=== PATIENT | female | born 1955 | race Caucasian/White ===

== ENCOUNTER 2018-06-14 13:25 | Inpatient (IN) | payer MEDICAID ==
[~2018-06-14] VITALS: Ht 167.6 cm; Wt 90.0 kg
[~2018-06-14 13:25] MED LIST: APIX5TAB3 PO; CAT1P TD; CLOP75TA35 PO; FLUT16SP26 BOTHNARES; HYDR4TAB55 PO; LEVA15HF4 INH; LIDO700A5 TP; LISI-604 PO; LORA10TA7 PO; LYR25C PO; LYR75C PO; ONDA8TAB12 PO; PER5325T PO
[2018-06-14] MEDS ORDERED: heparin 10,000 units/1 ML INJ IV ONE (16:10)
[2018-06-14] MEDS ORDERED: mag hydrox/Alum hydrox/simeth 30ml oral suspension PO PRN (16:15)
[2018-06-14] MEDS ORDERED: magnesium hydroxide 30ml (MOM) UD suspension PO PRN (16:15)
[2018-06-14] MEDS ORDERED: ondansetron/PF 4mg/2ml inj IV PRN (16:15)
[2018-06-14] MEDS ORDERED: acetaminophen 325mg tablet PO PRN (16:15)
[2018-06-14] MEDS ORDERED: normal saline 1000ml 1,000 ML IV SCH (16:33)
[2018-06-14] MEDS: morphine 2 MG/ML inj. syringe IV PRN (18:00)
[2018-06-14 18:12] LABS: BASOPHILS # (AUTO) 0.1 X10'3 (0-0.2); BASOPHILS % (AUTO) 0.9 % (0-1); EOSINOPHILS # (AUTO) 0.3 X10'3 (0-0.9); EOSINOPHILS % (AUTO) 2.4 % (0-6); HEMATOCRIT 49.1 % (35.0-45.0); LYMPHOCYTES # (AUTO) 3.4 X10'3 (1.1-4.8); LYMPHOCYTES % (AUTO) 27.3 % (21-51); MEAN CORPUSCULAR HGB CONC 32.6 % (33.0-36.5); MEAN PLATELET VOLUME 8.2 FL (7.4-10.4); MONOCYTES # (AUTO) 0.9 X10'3 (0-0.9); MONOCYTES % (AUTO) 6.9 % (2-12); NEUTROPHILS # (AUTO) 7.8 X10'3 (1.8-7.7); NEUTROPHILS % (AUTO) 62.5 % (42-75); PLATELET COUNT 353 X10'3 (140-440); RED BLOOD COUNT 5.33 X10'6 (4.20-5.60); RED CELL DISTRIBUTION WIDTH 14.5 % (11.5-14.5); WHITE BLOOD COUNT 12.4 X10'3 (4.5-11.0)
[2018-06-14 18:20] LABS: ALANINE AMINOTRANSFERASE 19 U/L (12-78); ALBUMIN 3.3 G/DL (3.4-5.0); ALBUMIN/GLOBULIN RATIO 0.7 (1.1-1.5); ALKALINE PHOSPHATASE 141 IU/L (46-116); ANION GAP 7 (8-16); ASPARTATE AMINO TRANSFERASE 13 U/L (10-37); BILIRUBIN,TOTAL 0.3 MG/DL (0.1-1.0); BLOOD UREA NITROGEN 17 MG/DL (7-18); BUN/CREATININE RATIO 16.2 (6.6-38.0); CHLORIDE 95 MMOL/L (99-107); CREATININE 1.05 MG/DL (0.40-0.90); GLUCOSE 401 MG/DL (70-104); POTASSIUM 4.5 MMOL/L (3.5-5.1); SODIUM 132 MMOL/L (135-145); TOTAL CARBON DIOXIDE 29.6 MMOL/L (24-32); TOTAL PROTEIN 8.3 G/DL (6.4-8.2); eGFR 53 ML/MIN
[2018-06-14] MEDS ORDERED: oxyCODONE/APAP 10/325mg tablet PO PRN (18:20)
[2018-06-14 18:27] LABS: PARTIAL THROMBOPLASTIN TIME 31 SECONDS (22-32)
[2018-06-14] MEDS: heparin 25,000 UNIT/250ml bag 250 ML IV SCH (19:00)
[2018-06-14] MEDS: normal saline 1000ml 1,000 ML IV SCH (19:14)
[2018-06-14 20:00] VITALS: BP 138/74
[2018-06-14] MEDS: HYDROmorphone 2mg tablet PO PRN (20:40)
[2018-06-14] MEDS ORDERED: MESSAGE TO PHARMACY PO ONE (22:20)
[2018-06-14] MEDS ORDERED: glucagon, human recombinant 1mg kit SUBCUT PRN (22:20)
[2018-06-14] MEDS ORDERED: dextrose 50%-water 50ml dispensing syringe IV PRN ×2 (22:20)
[2018-06-14] MEDS ORDERED: dextrose ORAL solution 15 GM/59 ML bottle PO PRN ×2 (22:20)
[2018-06-14 22:21] LABS: HEMOGLOBIN A1C 11.1 % (4.5-6.2)
[2018-06-14] MEDS ORDERED: LYR75C PO (22:26)
[2018-06-14] MEDS ORDERED: LYR25C PO (22:26)
[2018-06-14] MEDS: insulin Lispro (HumaLOG) vial - multi-dose SQ SCH (22:51)
[2018-06-14 23:00] VITALS: BP 143/69
[2018-06-15] MEDS ORDERED: PREG100C PO (01:20)
[2018-06-15] MEDS ORDERED: LISI-604 PO (01:26)
[2018-06-15] MEDS ORDERED: INSU100I31 SQ (01:26)
[2018-06-15] MEDS ORDERED: CLOP75TA15 PO (01:26)
[2018-06-15] MEDS ORDERED: INSU100V11 (01:26)
[2018-06-15] MEDS ORDERED: AMLO5TAB16 PO (01:26)
[2018-06-15] MEDS ORDERED: APIX5TAB3 PO (01:27)
[2018-06-15] MEDS ORDERED: ATOR20TA66 PO (01:27)
[2018-06-15] MEDS: heparin 10,000 units/1 ML INJ IV PRN ×2 (02:02→11:48)
[2018-06-15] MEDS: normal saline 1000ml 1,000 ML IV SCH ×2 (02:12→04:00)
[2018-06-15] MEDS: HYDROmorphone 2mg tablet PO PRN (02:18)
[2018-06-15 02:30] VITALS: BP 141/74
[2018-06-15 06:00] VITALS: BP_SYST 144; BP_SYST 152; BP_DIAS 75; BP_DIAS 90
[2018-06-15 06:59] LABS: BASOPHILS % (AUTO) 0.4 % (0-1); EOSINOPHILS # (AUTO) 0.3 X10'3 (0-0.9); EOSINOPHILS % (AUTO) 2.5 % (0-6); HEMATOCRIT 44.4 % (35.0-45.0); HEMOGLOBIN 14.6 g/dl (12.0-16.0); LYMPHOCYTES # (AUTO) 3.5 X10'3 (1.1-4.8); LYMPHOCYTES % (AUTO) 32.1 % (21-51); MEAN CORPUSCULAR HGB CONC 32.8 % (33.0-36.5); MEAN CORPUSCULAR VOLUME 91.6 FL (78-98); MEAN PLATELET VOLUME 8.6 FL (7.4-10.4); MONOCYTES # (AUTO) 0.8 X10'3 (0-0.9); MONOCYTES % (AUTO) 7.5 % (2-12); NEUTROPHILS # (AUTO) 6.2 X10'3 (1.8-7.7); NEUTROPHILS % (AUTO) 57.5 % (42-75); PLATELET COUNT 323 X10'3 (140-440); RED BLOOD COUNT 4.85 X10'6 (4.20-5.60); RED CELL DISTRIBUTION WIDTH 14.6 % (11.5-14.5); WHITE BLOOD COUNT 10.9 X10'3 (4.5-11.0)
[2018-06-15 07:21] LABS: ALBUMIN 2.6 G/DL (3.4-5.0); ANION GAP 10 (8-16); BLOOD UREA NITROGEN 17 MG/DL (7-18); CALCIUM 8.5 MG/DL (8.5-10.1); CHLORIDE 103 MMOL/L (99-107); CREATININE 0.74 MG/DL (0.40-0.90); GLUCOSE 286 MG/DL (70-104); POTASSIUM 3.9 MMOL/L (3.5-5.1); SODIUM 140 MMOL/L (135-145); TOTAL CARBON DIOXIDE 26.7 MMOL/L (24-32); eGFR 79 ML/MIN
[2018-06-15] MEDS: insulin Lispro (HumaLOG) vial - multi-dose SQ SCH ×2 (07:39→13:03)
[2018-06-15] MEDS ORDERED: clopidogrel 75mg tablet PO SCH (08:00)
[2018-06-15] MEDS: morphine 2 MG/ML inj. syringe IV PRN ×2 (08:32→12:24)
[2018-06-15 11:00] VITALS: BP 144/75
[2018-06-15] MEDS: heparin 25,000 UNIT/250ml bag 250 ML IV SCH (11:52)
[2018-06-15] MEDS ORDERED: LORazepam 0.5 MG tablet PO ONE (13:25)
[2018-06-15] MEDS ORDERED: HYDROMORPHONE HCL PO PRN (13:35)
[2018-06-15] MEDS ORDERED: LIDOcaine 1%/PF 5ML 10 MG/ML VIAL SQ ONE (13:45)
[2018-06-15] MEDS ORDERED: midazolam 2 mg/2 ml injection IV PRN (13:45)
[2018-06-15] MEDS ORDERED: heparin 1,000 UNITS/NS 500ml 500 ML ICATH ONE (13:45)
[2018-06-15] MEDS ORDERED: fentaNYL/PF 50MCG/1 ML 2ML syringe IV PRN (13:45)
[2018-06-15] MEDS ORDERED: LIDOcaine 1%/PF 5ML 10 MG/ML VIAL ONE (13:52)
[2018-06-15] MEDS ORDERED: fentaNYL/PF 50MCG/1 ML 2ML syringe ONE (13:52)
[2018-06-15] MEDS ORDERED: heparin 1,000 UNITS/NS 500ml 0 ML ONE (13:52)
[2018-06-15] MEDS ORDERED: midazolam 2 mg/2 ml injection ONE (13:52)
[2018-06-15] MEDS ORDERED: iohexol 300mg/ml 100ml inj. ONE (13:52)
[2018-06-15] MEDS ORDERED: HYDROmorphone 2mg tablet PO PRN (14:10)
[2018-06-15] MEDS ORDERED: pregabalin 25mg capsule PO ONE (14:10)
[2018-06-15] MEDS ORDERED: lisinopril 5mg tablet PO SCH (20:00)
[2018-06-15] MEDS ORDERED: apixaban 5mg tablet PO SCH (20:00)
[2018-06-15] MEDS ORDERED: non-formulary drug (Levalbuterol Tartrate (Xopenex Hfa) 2 PUFFS) INH SCH (20:00)
[2018-06-15] MEDS ORDERED: insulin glargine (Lantus) pen - multi-dose SQ SCH (21:00)
[2018-06-15] MEDS ORDERED: albuterol 2.5 MG/3 ML nebule NEB SCH (21:00)
[2018-06-15] MEDS ORDERED: pregabalin 25mg capsule PO SCH (21:00)
[2018-06-15] MEDS ORDERED: non-formulary drug (Pregabalin (Lyrica) 1 CAP) PO SCH (21:00)
[2018-06-16] MEDS ORDERED: amLODIPine 5mg tablet PO SCH (08:00)
[2018-06-16] MEDS ORDERED: atorvastatin 20mg tablet PO SCH (08:00)
[2018-06-16] MEDS ORDERED: insulin glargine (Lantus) pen - multi-dose SQ SCH (08:00)
[2018-06-16] MEDS ORDERED: clopidogrel 75mg tablet PO SCH (08:00)
== END 2018-06-15 15:10 | disposition left against medical advice (07) | DRG 206 ==
LOC: ER 13:26 → ED HOLD 16:12 → PCU 3S 19:40 → CMPBEDREQ 19:55
PROVIDERS: ADMIT Family Medicine; ATTEND Family Medicine
DX: T82.898A Other specified complication of vascular prosthetic devices, implants and grafts, initial encounter (principal); N17.9 Acute kidney failure, unspecified; E11.51 Type 2 diabetes mellitus with diabetic peripheral angiopathy without gangrene; I48.0 Paroxysmal atrial fibrillation; G89.4 Chronic pain syndrome; E78.5 Hyperlipidemia, unspecified; F41.9 Anxiety disorder, unspecified; I10 Essential (primary) hypertension; J44.9 Chronic obstructive pulmonary disease, unspecified; E66.9 Obesity, unspecified; Y83.2 Surgical operation with anastomosis, bypass or graft as the cause of abnormal reaction of the patient, or of later complication, without mention of misadventure at the time of the procedure; F12.90 Cannabis use, unspecified, uncomplicated; F17.210 Nicotine dependence, cigarettes, uncomplicated; Z53.21 Procedure and treatment not carried out due to patient leaving prior to being seen by health care provider; Z88.5 Allergy status to narcotic agent; Z88.2 Allergy status to sulfonamides; Z87.01 Personal history of pneumonia (recurrent); Z68.32 Body mass index [BMI] 32.0-32.9, adult
CPT/HCPCS: 36415; 71045; 80048; 80053; 82948; 83036; 85025; 85610; 85730; 93005; 99285; G0378; J1644; J1815; J2001; J2250; J2270; J2405; J3010; J7030; Q9967

== ENCOUNTER 2018-07-07 08:03 | Inpatient (IN) | payer MEDICAID ==
[~2018-07-07] VITALS: Ht 165.1 cm; Wt 86.8 kg
[~2018-07-07 08:03] MED LIST changes: +AMLO5TAB16 PO; +ATOR20TA66 PO; -CAT1P TD; +CLOP75TA15 PO; -CLOP75TA35 PO; -FLUT16SP26 BOTHNARES; +INSU100I31 SQ; +INSU100V11; -LIDO700A5 TP; -LORA10TA7 PO; -LYR25C PO; -LYR75C PO; -ONDA8TAB12 PO; -PER5325T PO; +PREG100C PO
[2018-07-07] MEDS ORDERED: iohexol 350 MG/ML 50ML vial IV ONE (09:30)
[2018-07-07] MEDS ORDERED: iohexol 350MG/ML 100ml bottle IV ONE (09:30)
[2018-07-07 09:50] LABS: CLARITY,URINE CLEAR (Clear); COLOR,URINE YELLOW (Yellow); GLUCOSE, URINE >=1000 mg/dl (Neg); KETONES,URINE NEGATIVE (Neg); LEUKOCYTE ESTERASE ,URINE NEGATIVE (Neg); NITRITES, URINE NEGATIVE (Neg); OCCULT BLOOD,URINE NEGATIVE (Neg); PH,URINE 5.5 (4.8-8.0); PROTEIN,URINE NEGATIVE (Neg); UROBILINOGEN,URINE 0.2 E.U/dL (0.2-1.0)
[2018-07-07 09:57] LABS: BASOPHILS # (AUTO) 0.1 X10'3 (0-0.2); BASOPHILS % (AUTO) 0.5 % (0-1); EOSINOPHILS # (AUTO) 0.2 X10'3 (0-0.9); EOSINOPHILS % (AUTO) 1.9 % (0-6); HEMATOCRIT 49.5 % (35.0-45.0); HEMOGLOBIN 16.9 g/dl (12.0-16.0); LYMPHOCYTES # (AUTO) 1.8 X10'3 (1.1-4.8); MEAN CORPUSCULAR HEMOGLOBIN 30.9 PG (27.0-31.0); MEAN CORPUSCULAR VOLUME 90.9 FL (78-98); MEAN PLATELET VOLUME 9.3 FL (7.4-10.4); MONOCYTES # (AUTO) 0.6 X10'3 (0-0.9); MONOCYTES % (AUTO) 5.9 % (2-12); NEUTROPHILS % (AUTO) 74.7 % (42-75); PLATELET COUNT 251 X10'3 (140-440); RED BLOOD COUNT 5.45 X10'6 (4.20-5.60); RED CELL DISTRIBUTION WIDTH 13.2 % (11.5-14.5); WHITE BLOOD COUNT 10.7 X10'3 (4.5-11.0)
[2018-07-07 09:58] LABS: UA COLLECTION TYPE URINAL
[2018-07-07 10:03] LABS: SQUAMOUS EPITHELIAL CELL,UR MODERATE /LPF (FEW)
[2018-07-07 10:04] LABS: BACTERIA,URINE FEW /HPF (Neg); RBC,URINE 0-2 /HPF (0-2); WBC,URINE 0-4 /HPF (0-4)
[2018-07-07] MEDS ORDERED: HYDROcodone/acetaminophen 10/325mg tab PO PRN (10:05)
[2018-07-07] MEDS ORDERED: magnesium hydroxide 30ml (MOM) UD suspension PO PRN (10:05)
[2018-07-07] MEDS ORDERED: mag hydrox/Alum hydrox/simeth 30ml oral suspension PO PRN (10:05)
[2018-07-07] MEDS ORDERED: morphine 2 MG/ML inj. syringe IV PRN (10:05)
[2018-07-07] MEDS ORDERED: HYDROcodone/acetaminophen 5mg/325mg tablet PO PRN (10:05)
[2018-07-07 10:11] LABS: ALANINE AMINOTRANSFERASE 25 U/L (12-78); ALBUMIN 3.5 G/DL (3.4-5.0); ALBUMIN/GLOBULIN RATIO 0.8 (1.1-1.5); ALKALINE PHOSPHATASE 143 IU/L (46-116); ANION GAP 11 (8-16); ASPARTATE AMINO TRANSFERASE 14 U/L (10-37); BILIRUBIN,TOTAL 0.3 MG/DL (0.1-1.0); BLOOD UREA NITROGEN 18 MG/DL (7-18); BUN/CREATININE RATIO 18.2 (6.6-38.0); CALCIUM 9.7 MG/DL (8.5-10.1); CHLORIDE 97 MMOL/L (99-107); CREATININE 0.99 MG/DL (0.40-0.90); POTASSIUM 4.4 MMOL/L (3.5-5.1); SODIUM 134 MMOL/L (135-145); TOTAL CARBON DIOXIDE 25.8 MMOL/L (24-32); TOTAL PROTEIN 7.9 G/DL (6.4-8.2); eGFR 57 ML/MIN
--- NOTE | 2018-07-07 10:19 | NUR ---
GLUCOSE 469 HERNAN ASIF MADE AWARE.
[2018-07-07] MEDS ORDERED: normal saline 1000ml 1,000 ML IV ONE (10:20)
[2018-07-07] MEDS ORDERED: insulin regular, human 10 units/0.1 ml syringe IV ONE (10:20)
[2018-07-07 10:28] LABS: GLUCOSE 469 MG/DL (70-104)
[2018-07-07] MEDS: normal saline 1000ml 1,000 ML IV SCH ×2 (10:31→14:45)
[2018-07-07] MEDS: morphine 2 MG/ML inj. syringe IV PRN ×3 (13:30→23:13)
[2018-07-07] MEDS ORDERED: tPA-cathflo 2mg/2ml IV flush 4 MG in normal saline 100ml IV soln 100 ML ICATH SCH ×2 (14:41→15:05)
[2018-07-07] MEDS ORDERED: iohexol 300mg/ml 100ml inj. ONE (14:54)
[2018-07-07] MEDS ORDERED: LIDOcaine 1%/PF 5ML 10 MG/ML VIAL ONE (14:54)
[2018-07-07] MEDS ORDERED: heparin 1,000 UNITS/NS 500ml 500 ML ONE (14:54)
--- NOTE | 2018-07-07 15:13 | NUR ---
Patient in room VIK 354. I have received report from shahram CEJA and had the opportunity to ask questions and assume patient care.
[2018-07-07] MEDS ORDERED: midazolam 2 mg/2 ml injection ONE (15:23)
[2018-07-07] MEDS ORDERED: fentaNYL/PF 50MCG/1 ML 2ML syringe ONE ×2 (15:24→16:25)
[2018-07-07 17:08] VITALS: BP 191/97
--- NOTE | 2018-07-07 17:10 | NUR ---
PT ARRIVED FROM ANGIO REPORT RECEIVED ASSUMED CARE
[2018-07-07] MEDS: tPA-cathflo 2mg/2ml IV flush 4 MG in normal saline 100ml IV soln 100 ML ICATH SCH ×2 (17:28→23:15)
[2018-07-07] MEDS ORDERED: MESSAGE TO PHARMACY PO ONE (17:40)
[2018-07-07] MEDS ORDERED: dextrose ORAL solution 15 GM/59 ML bottle PO PRN ×2 (17:40)
[2018-07-07] MEDS ORDERED: glucagon, human recombinant 1mg kit SUBCUT PRN (17:40)
[2018-07-07] MEDS ORDERED: dextrose 50%-water 50ml dispensing syringe IV PRN ×2 (17:40)
[2018-07-07] MEDS: HYDROmorphone 2mg tablet PO PRN (18:03)
--- NOTE | 2018-07-07 18:29 | NUR ---
Patient in room CICU 2009. I have received report from Tomas CEJA, and had the opportunity to ask questions and assume patient care.
[2018-07-07 19:00] VITALS: BP 213/111
--- NOTE | 2018-07-07 19:00 | NUR ---
PT in RM sobbing c/o pain to RT leg, PRN PO Dilaudid given by previous nurse at 1803. 2mg of PRN Morphine given IVP. PT also hypertensive at this time with SBP from 180's-210's. PT has arterial line placed in IR going to old, occluded Femoro-Popliteal graft. TPa is infusing directly to line at orderd rate of 12.5ml/hr. Site is CDI. Will Continue to monitor. Addendum: 07/08/18 at 0314 by Jose Dorado RN RT foot is cooler to touch than left foot, bilat dorsalis pedis pulses checked via Doppler, received in report that pulse is absent on RT foot both to palpation and doppler, this remains true. PT does have Doppler pulse to LT foot. Will continue to monitor closely.
[2018-07-07 20:00] VITALS: BP 122/78
--- NOTE | 2018-07-07 20:00 | NUR ---
PT is resting more comfortably. States pain is under control. BP has stabilized as well, PT no longer hypertensive. just called and asked if it would be possible for PT to have a Nicotine patch, and stated she is a 2 pack/day smoker. BRICE Cool notified and order received for a 21mg Patch. Bed is locked and low. Call light is within reach. Will continue to monitor.
[2018-07-07 21:00] VITALS: BP 158/84
[2018-07-07] MEDS: nicotine 21mg patch - 24 hr TD SCH (21:05)
[2018-07-07] MEDS: insulin glargine (Lantus) pen - multi-dose SQ SCH (21:55)
[2018-07-07 22:00] VITALS: BP 149/79
--- NOTE | 2018-07-07 22:00 | NUR ---
PT blood sugar was check when Lab came to draw scheduled labs as PT is on a tPA gtt, wanting to be cautions as to not poke PT excessively d/t risk of bleeding. PT asked what her blood sugar was and I told her is was 263. PT asked why is was so high if she hasn't eaten much today. I asked PT what her blood sugars run at home and she stated "no comment". I then asked PT if she takes insulin at home and she stated " I used to but I quit because I don't like needles." PT was admitted in May and her A1C at that time was 11.1. PT is on hyperglycemic protocol. PT could benefit from diabetic counseling. Will continue to educated PT on Hyperglycemic protocol and treatment she will be receiving during hospitalization. Will continue to monitor.
[2018-07-07 22:01] LABS: HEMATOCRIT 47.9 % (35.0-45.0); HEMOGLOBIN 15.8 g/dl (12.0-16.0); MEAN CORPUSCULAR HEMOGLOBIN 29.8 PG (27.0-31.0); MEAN CORPUSCULAR VOLUME 90.4 FL (78-98); MEAN PLATELET VOLUME 7.9 FL (7.4-10.4); PLATELET COUNT 209 X10'3 (140-440); WHITE BLOOD COUNT 15.1 X10'3 (4.5-11.0)
[2018-07-07 22:28] LABS: INR 1.3 INR; PROTHROMBIN TIME 13.3 SECONDS (9.0-12.0)
--- NOTE | 2018-07-07 22:32 | NUR ---
TPa gtt noted to be running low. There is another bag that is already spiked and hanging on IV Pole. Both the bag that is currently infusing and the bag hanging were both spiked in IR. Pharmacy contacted to verify if 2nd bag that is spiked and hanging on IV Pole is still ok to use. Spoke to Abi in pharmacy and she stated the bag hanging is still ok to use even though it is already spiked and the next bag will need to be hung around 0600. Will continue to monitor.
[2018-07-07 23:00] VITALS: BP 149/82
[2018-07-08] VITALS (37 sets, daily range): BP systolic 105–205; BP diastolic 60–120
--- NOTE | 2018-07-08 | NUR ---
PT is now NPO as ordered
[2018-07-08] MEDS: ondansetron/PF 4mg/2ml inj IV PRN ×2 (00:46→22:58)
[2018-07-08] MEDS: HYDROmorphone 2mg tablet PO PRN ×3 (00:47→19:47)
[2018-07-08] MEDS: LORazepam 2 mg/ml vial IV PRN ×4 (01:22→23:55)
--- NOTE | 2018-07-08 01:38 | NUR ---
PT was screaming out, yelling Nurse as I was in the Med room getting her her PO Dilaudid. I went into the room to give PT her pain medicine but was not cooperating. She called her daughter multiple times, left a voicemail requesting her daughter to come pick her up. PT stated he was in pain, I informed her I had her pain medicine for her to take. PT then took her PO Dilaudid. I called HYPO DIPPER Travon and notified him of the situation, and informed him that the PT was here on 06/14 and left AMA on 06/15 reportedly for being made NPO for a procedure. Order received to increase PRN IVP morphine from 2-4mg and also received and order for 1mg PRN Ativan Q4 for anxiety. Ordered were put in. Ativan given and seems to be effective, PT is now more calm, not crying. I educated PT on new orders received and that I would give her pain medicine as they are ordered and as soon as they become available. PT is now falling asleep while on the phone with her , PT also informed of the changes made to medications via speakerphone and assured him PT is getting her pain medicine, has requested for pain and anxiety medications to be given early, I educated that I can only give the medications as ordered and that they will be given as when they become available. VSS. Will continue to monitor.
[2018-07-08] MEDS: normal saline 1000ml 1,000 ML IV SCH ×2 (02:55→16:03)
--- NOTE | 2018-07-08 03:00 | NUR ---
PT is sleeping with no s/s of distress noted at this time. VSS. Bed is locked and low. Call light is within reach. Will continue to monitor.
[2018-07-08] MEDS: morphine 2 MG/ML inj. syringe IV PRN ×3 (04:26→23:55)
[2018-07-08] MEDS ORDERED: morphine 2 MG/ML inj. syringe IV PRN (05:25)
[2018-07-08] MEDS: tPA-cathflo 2mg/2ml IV flush 4 MG in normal saline 100ml IV soln 100 ML ICATH SCH ×2 (05:49→16:04)
[2018-07-08 06:09] LABS: ANION GAP 9 (8-16); BLOOD UREA NITROGEN 17 MG/DL (7-18); BUN/CREATININE RATIO 15.3 (6.6-38.0); CALCIUM 8.4 MG/DL (8.5-10.1); CHLORIDE 104 MMOL/L (99-107); CREATININE 1.11 MG/DL (0.40-0.90); GLUCOSE 294 MG/DL (70-104); POTASSIUM 4.3 MMOL/L (3.5-5.1); SODIUM 138 MMOL/L (135-145); TOTAL CARBON DIOXIDE 25.3 MMOL/L (24-32); eGFR 50 ML/MIN
[2018-07-08 06:10] LABS: BASOPHILS % (AUTO) 0.2 % (0-1); EOSINOPHILS # (AUTO) 0.3 X10'3 (0-0.9); EOSINOPHILS % (AUTO) 2.3 % (0-6); HEMATOCRIT 47.8 % (35.0-45.0); HEMOGLOBIN 15.6 g/dl (12.0-16.0); LYMPHOCYTES # (AUTO) 2.6 X10'3 (1.1-4.8); LYMPHOCYTES % (AUTO) 20.6 % (21-51); MEAN CORPUSCULAR HEMOGLOBIN 29.7 PG (27.0-31.0); MEAN CORPUSCULAR HGB CONC 32.7 % (33.0-36.5); MEAN PLATELET VOLUME 7.9 FL (7.4-10.4); MONOCYTES # (AUTO) 1.3 X10'3 (0-0.9); MONOCYTES % (AUTO) 10.4 % (2-12); NEUTROPHILS # (AUTO) 8.5 X10'3 (1.8-7.7); NEUTROPHILS % (AUTO) 66.5 % (42-75); PLATELET COUNT 189 X10'3 (140-440); RED BLOOD COUNT 5.25 X10'6 (4.20-5.60); RED CELL DISTRIBUTION WIDTH 13.8 % (11.5-14.5); WHITE BLOOD COUNT 12.8 X10'3 (4.5-11.0)
--- NOTE | 2018-07-08 06:15 | NUR ---
Problems reprioritized. Patient report given, questions answered & plan of care reviewed with Tomas CEJA.
[2018-07-08 06:19] LABS: INR 1.4 INR; PARTIAL THROMBOPLASTIN TIME 39 SECONDS (22-32); PROTHROMBIN TIME 14.4 SECONDS (9.0-12.0)
--- NOTE | 2018-07-08 06:23 | NUR ---
tPA just turned off d/t Fibrinogen being 71. Informed Tomas CEJA.
--- NOTE | 2018-07-08 07:00 | NUR ---
called asking when her pain meds are due and wants them to be given joaquin pt in bed sleeping with no s/s of distress
[2018-07-08] MEDS: insulin Lispro (HumaLOG) vial - multi-dose SQ SCH ×2 (08:26→21:42)
--- NOTE | 2018-07-08 10:15 | NUR ---
augusto called and notfied about fibringen level being low
--- NOTE | 2018-07-08 10:20 | NUR ---
pt wanted ativan for anxity ativan was given now pt is asleep
--- NOTE | 2018-07-08 11:00 | NUR ---
pt down to angio
[2018-07-08] MEDS ORDERED: fentaNYL/PF 50MCG/1 ML 2ML syringe ONE (11:24)
--- NOTE | 2018-07-08 11:30 | NUR ---
Received report from BRENNA Marin. Pt currently in angio
[2018-07-08] MEDS ORDERED: heparin 1,000 UNITS/NS 500ml 500 ML ONE (11:59)
[2018-07-08] MEDS ORDERED: iohexol 300 MG/1 ML 50ml polymer ONE (11:59)
[2018-07-08] MEDS ORDERED: LIDOcaine 1%/PF 5ML 10 MG/ML VIAL ONE (12:00)
[2018-07-08] MEDS ORDERED: midazolam 2 mg/2 ml injection ONE (12:09)
[2018-07-08] MEDS ORDERED: iohexol 300mg/ml 100ml inj. ONE (12:24)
[2018-07-08] MEDS ORDERED: heparin 1,000 UNITS/NS 500ml 500 ML ICATH ONE (12:25)
[2018-07-08] MEDS ORDERED: LIDOcaine 1%/PF 5ML 10 MG/ML VIAL SQ ONE (12:25)
[2018-07-08] MEDS ORDERED: fentaNYL/PF 50MCG/1 ML 2ML syringe IV PRN (12:25)
[2018-07-08] MEDS ORDERED: midazolam 2 mg/2 ml injection IV PRN (12:25)
--- NOTE | 2018-07-08 12:52 | NUR ---
received report from angio. pt to be started on heparin gtt at 1400.
[2018-07-08] MEDS ORDERED: heparin 10,000 units/1 ML INJ IV ONE (14:00)
[2018-07-08] MEDS ORDERED: heparin 10,000 units/1 ML INJ IV PRN (14:00)
[2018-07-08] MEDS ORDERED: heparin 25,000 UNIT/250ml bag 250 ML IV SCH (14:00)
--- NOTE | 2018-07-08 14:37 | NUR ---
Pt requests RD for additional food preferences this admit; unfortunately remains NPO for return to OR given persistent clot. Pt food preferences have been taken by ANGI and sailaja kasper for once pt returns to regular diet. Addendum: 07/08/18 at [address] Amended: Links added.
--- NOTE | 2018-07-08 14:45 | NUR ---
Pt returned from angio, sleepy but arousable and answering questions appropriately. Midline placed by picc RN, heparin gtt initiated. Pt pleasant and resting with at bedside.
[2018-07-08 15:03] LABS: INR 1.3 INR
--- NOTE | 2018-07-08 15:16 | NUR ---
Extended piv inserted to the right upper arm braachial vein x 1 attempt using ultrasound. Christiano well Addendum: 07/08/18 at 1516 by Simin Quinones RN Amended: Links added.
--- NOTE | 2018-07-08 18:30 | NUR ---
Patient in room CICU 2008. I have received report from BRENNA White and had the opportunity to ask questions and assume patient care.
--- NOTE | 2018-07-08 18:31 | NUR ---
Problems reprioritized. Patient report given, questions answered & plan of care reviewed with BRENNA Burch.
--- NOTE | 2018-07-08 19:00 | NUR ---
Patient not allowing me to assess lower extremities until her pain medication is given, patient states that she is in severe pain. Despite several attempt, patient is still refusing. Will give medication and assess at that time.
--- NOTE | 2018-07-08 20:00 | NUR ---
After giving patient pain medication, lower leg found to be continuously bleeding from old puncture site. Pressure being held at this time. Heparin drip has been paused. MD Wahl and SUPERVISOR PIPELINE July Vinson notified. MD Wahl stated that he will come in to assess patient. Labs ordered and to be drawn. Patient severely anxious and continuously asking to tell the MD to remove her leg, continuously yells in pain.
[2018-07-08 20:49] LABS: BASOPHILS % (AUTO) 0.2 % (0-1); EOSINOPHILS # (AUTO) 0.4 X10'3 (0-0.9); EOSINOPHILS % (AUTO) 2.8 % (0-6); HEMATOCRIT 44.1 % (35.0-45.0); HEMOGLOBIN 14.3 g/dl (12.0-16.0); LYMPHOCYTES # (AUTO) 2.8 X10'3 (1.1-4.8); LYMPHOCYTES % (AUTO) 17.3 % (21-51); MEAN CORPUSCULAR HEMOGLOBIN 29.6 PG (27.0-31.0); MEAN CORPUSCULAR HGB CONC 32.4 % (33.0-36.5); MEAN CORPUSCULAR VOLUME 91.4 FL (78-98); MEAN PLATELET VOLUME 7.9 FL (7.4-10.4); MONOCYTES # (AUTO) 1.2 X10'3 (0-0.9); MONOCYTES % (AUTO) 7.4 % (2-12); NEUTROPHILS # (AUTO) 11.5 X10'3 (1.8-7.7); NEUTROPHILS % (AUTO) 72.3 % (42-75); PLATELET COUNT 175 X10'3 (140-440); RED BLOOD COUNT 4.82 X10'6 (4.20-5.60); WHITE BLOOD COUNT 15.9 X10'3 (4.5-11.0)
[2018-07-08] MEDS: nicotine 21mg patch - 24 hr TD SCH (21:00)
[2018-07-08 21:18] LABS: INR 1.2 INR; PROTHROMBIN TIME 11.6 SECONDS (9.0-12.0)
[2018-07-08] MEDS: insulin glargine (Lantus) pen - multi-dose SQ SCH (21:41)
--- NOTE | 2018-07-08 22:00 | NUR ---
MD Wahl came in to assess patient. Bleeding stopped moments before he came in, pressure still being applied. MD ordered to keep heparin drip off and to apply pressure dressing. Patient continues to be anxious and yell at staff and at .
[2018-07-08 22:38] LABS: ALANINE AMINOTRANSFERASE 20 U/L (12-78); ALBUMIN 2.9 G/DL (3.4-5.0); ALBUMIN/GLOBULIN RATIO 0.8 (1.1-1.5); ALKALINE PHOSPHATASE 110 IU/L (46-116); ANION GAP 11 (8-16); ASPARTATE AMINO TRANSFERASE 21 U/L (10-37); BILIRUBIN,TOTAL 0.4 MG/DL (0.1-1.0); BLOOD UREA NITROGEN 17 MG/DL (7-18); BUN/CREATININE RATIO 13.5 (6.6-38.0); CALCIUM 8.3 MG/DL (8.5-10.1); CHLORIDE 106 MMOL/L (99-107); CREATININE 1.26 MG/DL (0.40-0.90); GLUCOSE 290 MG/DL (70-104); SODIUM 140 MMOL/L (135-145); TOTAL CARBON DIOXIDE 23.2 MMOL/L (24-32); TOTAL PROTEIN 6.4 G/DL (6.4-8.2); eGFR 43 ML/MIN
[2018-07-08 22:41] LABS: POTASSIUM 4.5 MMOL/L (3.5-5.1)
--- NOTE | 2018-07-08 23:50 | NUR ---
Patient's cell phone with , he will be taking the phone with him.
[2018-07-09] VITALS (22 sets, daily range): BP systolic 142–218; BP diastolic 65–103
--- NOTE | 2018-07-09 | NUR ---
Patient refusing to allow me to check blood pressure this hour. Patient continues to be extremely anxious and noncompliant with care offered, Yells frequently despite several attempts to calm her down.
[2018-07-09] MEDS: normal saline 1000ml 1,000 ML IV SCH ×3 (01:45→20:25)
--- NOTE | 2018-07-09 04:00 | NUR ---
Patient refusing to allow me to put oxygen on her at this time. Will retry when patient is more calm.
[2018-07-09 04:36] LABS: BASOPHILS % (AUTO) 0.2 % (0-1); EOSINOPHILS # (AUTO) 0.2 X10'3 (0-0.9); HEMATOCRIT 40.5 % (35.0-45.0); HEMOGLOBIN 13.3 g/dl (12.0-16.0); LYMPHOCYTES # (AUTO) 1.3 X10'3 (1.1-4.8); LYMPHOCYTES % (AUTO) 7.3 % (21-51); MEAN CORPUSCULAR HEMOGLOBIN 30.2 PG (27.0-31.0); MEAN CORPUSCULAR HGB CONC 32.9 % (33.0-36.5); MEAN CORPUSCULAR VOLUME 91.7 FL (78-98); MEAN PLATELET VOLUME 8.5 FL (7.4-10.4); MONOCYTES # (AUTO) 0.9 X10'3 (0-0.9); MONOCYTES % (AUTO) 5.1 % (2-12); NEUTROPHILS # (AUTO) 15.7 X10'3 (1.8-7.7); NEUTROPHILS % (AUTO) 86.4 % (42-75); PLATELET COUNT 155 X10'3 (140-440); RED BLOOD COUNT 4.41 X10'6 (4.20-5.60); WHITE BLOOD COUNT 18.1 X10'3 (4.5-11.0)
[2018-07-09 04:43] LABS: ALBUMIN 2.9 G/DL (3.4-5.0); ANION GAP 10 (8-16); BLOOD UREA NITROGEN 17 MG/DL (7-18); BUN/CREATININE RATIO 14.3 (6.6-38.0); CALCIUM 8.4 MG/DL (8.5-10.1); CHLORIDE 106 MMOL/L (99-107); CREATININE 1.19 MG/DL (0.40-0.90); GLUCOSE 320 MG/DL (70-104); POTASSIUM 5.1 MMOL/L (3.5-5.1); SODIUM 140 MMOL/L (135-145); TOTAL CARBON DIOXIDE 24.4 MMOL/L (24-32); eGFR 46 ML/MIN
--- NOTE | 2018-07-09 06:54 | NUR ---
Patient in room CICU 2009. I have received report from Kiersten CEJA and had the opportunity to ask questions and assume patient care.
--- NOTE | 2018-07-09 06:55 | NUR ---
Problems reprioritized. Patient report given, questions answered & plan of care reviewed with BRENNA Rogers.
[2018-07-09] MEDS: morphine 2 MG/ML inj. syringe IV PRN ×4 (07:37→23:52)
[2018-07-09] MEDS: insulin Lispro (HumaLOG) vial - multi-dose SQ SCH ×3 (08:49→20:49)
--- NOTE | 2018-07-09 10:00 | NUR ---
While prepping patient for OR with chlorahexadine wipes I undid the occlusive dressing on her right knee and the angio site began bleeding again. Pressure was reapplied and Coban was replaced.
[2018-07-09] MEDS: LORazepam 2 mg/ml vial IV PRN ×2 (10:05→22:15)
[2018-07-09 11:26] LABS: HEMATOCRIT 36.1 % (35.0-45.0); HEMOGLOBIN 11.9 g/dl (12.0-16.0); MEAN CORPUSCULAR HEMOGLOBIN 29.9 PG (27.0-31.0); MEAN CORPUSCULAR HGB CONC 32.9 % (33.0-36.5); MEAN CORPUSCULAR VOLUME 91.1 FL (78-98); MEAN PLATELET VOLUME 8.2 FL (7.4-10.4); PLATELET COUNT 154 X10'3 (140-440); RED BLOOD COUNT 3.96 X10'6 (4.20-5.60); RED CELL DISTRIBUTION WIDTH 14.2 % (11.5-14.5); WHITE BLOOD COUNT 14.8 X10'3 (4.5-11.0)
[2018-07-09] MEDS ORDERED: HYDROMORPHONE HCL PO PRN (15:55)
[2018-07-09] MEDS ORDERED: ceFAZolin 2gm in dextrose, iso 100 ML IV ONE (18:00)
[2018-07-09] MEDS ORDERED: cefazolin/dext.iso 2gm/50ml 50 ML IV ONE (18:05)
--- NOTE | 2018-07-09 18:30 | NUR ---
Problems reprioritized. Patient report given, questions answered & plan of care reviewed with Nomi RN.
[2018-07-09] MEDS: levalbuterol 1.25mg/0.5ml nebule IH SCH (20:00)
[2018-07-09] MEDS: lisinopril 5mg tablet PO SCH (20:06)
[2018-07-09] MEDS ORDERED: ringers solution, lacted 1,000 ML IV ONE (20:19)
[2018-07-09] MEDS: nicotine 21mg patch - 24 hr TD SCH (21:00)
[2018-07-09] MEDS: insulin glargine (Lantus) pen - multi-dose SQ SCH (21:49)
[2018-07-09] MEDS: pregabalin 25mg capsule PO SCH (21:53)
[2018-07-10] VITALS (20 sets, daily range): BP systolic 151–178; BP diastolic 69–94
[2018-07-10 03:49] LABS: ALBUMIN 2.6 G/DL (3.4-5.0); ANION GAP 10 (8-16); BLOOD UREA NITROGEN 11 MG/DL (7-18); BUN/CREATININE RATIO 12.6 (6.6-38.0); CALCIUM 8.3 MG/DL (8.5-10.1); CHLORIDE 108 MMOL/L (99-107); CREATININE 0.87 MG/DL (0.40-0.90); GLUCOSE 149 MG/DL (70-104); POTASSIUM 3.6 MMOL/L (3.5-5.1); SODIUM 143 MMOL/L (135-145); TOTAL CARBON DIOXIDE 25.1 MMOL/L (24-32); eGFR 66 ML/MIN
[2018-07-10 04:04] LABS: BASOPHILS % (AUTO) 0.2 % (0-1); EOSINOPHILS # (AUTO) 0.5 X10'3 (0-0.9); EOSINOPHILS % (AUTO) 2.9 % (0-6); HEMATOCRIT 34.2 % (35.0-45.0); HEMOGLOBIN 11.3 g/dl (12.0-16.0); LYMPHOCYTES % (AUTO) 19.2 % (21-51); MEAN CORPUSCULAR HEMOGLOBIN 30.1 PG (27.0-31.0); MEAN CORPUSCULAR VOLUME 91.3 FL (78-98); MEAN PLATELET VOLUME 8.5 FL (7.4-10.4); MONOCYTES # (AUTO) 1.4 X10'3 (0-0.9); MONOCYTES % (AUTO) 8.6 % (2-12); NEUTROPHILS % (AUTO) 69.1 % (42-75); PLATELET COUNT 181 X10'3 (140-440); RED BLOOD COUNT 3.75 X10'6 (4.20-5.60); RED CELL DISTRIBUTION WIDTH 14.2 % (11.5-14.5); WHITE BLOOD COUNT 15.9 X10'3 (4.5-11.0)
[2018-07-10] MEDS ORDERED: cefazolin/dext.iso 2gm/50ml 50 ML IV ONE (05:00)
[2018-07-10] MEDS ORDERED: famotidine 20mg tablet PO ONE (06:00)
[2018-07-10] MEDS: morphine 2 MG/ML inj. syringe IV PRN ×2 (06:35→10:13)
[2018-07-10] MEDS: levalbuterol 1.25mg/0.5ml nebule IH SCH (08:00)
[2018-07-10] MEDS: insulin glargine (Lantus) pen - multi-dose SQ SCH ×2 (08:00→21:24)
[2018-07-10] MEDS: normal saline 1000ml 1,000 ML IV SCH ×2 (08:35→18:03)
[2018-07-10] MEDS: amLODIPine 5mg tablet PO SCH (08:42)
[2018-07-10] MEDS: lisinopril 5mg tablet PO SCH ×2 (08:42→21:18)
[2018-07-10] MEDS: pregabalin 25mg capsule PO SCH ×3 (08:42→21:18)
[2018-07-10] MEDS: atorvastatin 20mg tablet PO SCH (08:43)
[2018-07-10] MEDS: acetaminophen 325mg tablet PO PRN (11:12)
[2018-07-10] MEDS: morphine 4 MG/ML inj SYRINge IV PRN ×2 (13:09→20:44)
[2018-07-10] MEDS ORDERED: iohexol 300 MG/1 ML 50ml polymer ONE (14:38)
[2018-07-10] MEDS ORDERED: heparin 10,000 units/1 ML INJ ONE (14:38)
[2018-07-10] MEDS ORDERED: LIDOcaine 1% (10mg/ml) 2ml vial ONE (14:44)
[2018-07-10] MEDS ORDERED: propofol inj 20 ML IV ONE (14:53)
[2018-07-10] MEDS ORDERED: fentaNYL /PF 50mcg/ml 5ml ampule ONE (14:53)
[2018-07-10] MEDS ORDERED: MIDAZolam 5mg/5ml vial ONE (14:53)
[2018-07-10] MEDS ORDERED: LIDOcaine 2% (20mg/ml) 5ml vial ONE (14:54)
[2018-07-10] MEDS ORDERED: rocuronium 10mg/ml inj IV ONE (14:55)
[2018-07-10] MEDS: LORazepam 2 mg/ml vial IV PRN (20:44)
[2018-07-10] MEDS: nicotine 21mg patch - 24 hr TD SCH (21:19)
[2018-07-11] VITALS (22 sets, daily range): BP systolic 94–183; BP diastolic 56–86
[2018-07-11] MEDS: morphine 4 MG/ML inj SYRINge IV PRN ×7 (00:22→23:22)
[2018-07-11] MEDS: insulin Lispro (HumaLOG) vial - multi-dose SQ SCH (02:22)
[2018-07-11] MEDS: normal saline 1000ml 1,000 ML IV SCH ×2 (05:02→16:53)
[2018-07-11 06:14] LABS: ALBUMIN 2.7 G/DL (3.4-5.0); ANION GAP 11 (8-16); BLOOD UREA NITROGEN 9 MG/DL (7-18); BUN/CREATININE RATIO 12.2 (6.6-38.0); CALCIUM 8.5 MG/DL (8.5-10.1); CHLORIDE 104 MMOL/L (99-107); CREATININE 0.74 MG/DL (0.40-0.90); GLUCOSE 138 MG/DL (70-104); POTASSIUM 3.3 MMOL/L (3.5-5.1); SODIUM 139 MMOL/L (135-145); TOTAL CARBON DIOXIDE 23.9 MMOL/L (24-32); eGFR 79 ML/MIN
--- NOTE | 2018-07-11 06:30 | NUR ---
Patient in room CICU 2008. I have received report and had the opportunity to ask questions and assume patient care.
[2018-07-11 06:35] LABS: PRE OP PROTIME 10.4 SECONDS (9.0-12.0)
[2018-07-11] MEDS ORDERED: LIDOcaine 1% (10mg/ml) 2ml vial ONE (06:44)
[2018-07-11] MEDS ORDERED: heparin 10,000 units/1 ML INJ ONE (06:47)
[2018-07-11 06:48] LABS: BASOPHILS % (AUTO) 0.1 % (0-1); EOSINOPHILS # (AUTO) 0.5 X10'3 (0-0.9); HEMATOCRIT 37.1 % (35.0-45.0); HEMOGLOBIN 12.1 g/dl (12.0-16.0); LYMPHOCYTES # (AUTO) 2.9 X10'3 (1.1-4.8); LYMPHOCYTES % (AUTO) 17.2 % (21-51); MEAN CORPUSCULAR HEMOGLOBIN 29.8 PG (27.0-31.0); MEAN CORPUSCULAR HGB CONC 32.7 % (33.0-36.5); MEAN CORPUSCULAR VOLUME 91.2 FL (78-98); MEAN PLATELET VOLUME 8.6 FL (7.4-10.4); MONOCYTES # (AUTO) 1.5 X10'3 (0-0.9); MONOCYTES % (AUTO) 9.1 % (2-12); NEUTROPHILS # (AUTO) 11.7 X10'3 (1.8-7.7); NEUTROPHILS % (AUTO) 70.6 % (42-75); PLATELET COUNT 231 X10'3 (140-440); RED BLOOD COUNT 4.07 X10'6 (4.20-5.60); RED CELL DISTRIBUTION WIDTH 14.2 % (11.5-14.5); WHITE BLOOD COUNT 16.6 X10'3 (4.5-11.0)
[2018-07-11] MEDS: amLODIPine 5mg tablet PO SCH (07:53)
[2018-07-11] MEDS: lisinopril 5mg tablet PO SCH ×2 (07:53→20:47)
[2018-07-11] MEDS: atorvastatin 20mg tablet PO SCH (07:53)
[2018-07-11] MEDS: pregabalin 25mg capsule PO SCH ×3 (07:54→20:47)
[2018-07-11] MEDS: insulin glargine (Lantus) pen - multi-dose SQ SCH ×2 (07:56→21:00)
[2018-07-11] MEDS: levalbuterol 1.25mg/0.5ml nebule IH SCH ×2 (08:00→20:00)
--- NOTE | 2018-07-11 08:57 | NUR ---
Dr. Wahl called in to inquire about pt's status. Pre-op vein mapping ordered. prepress technician paged.
[2018-07-11] MEDS ORDERED: magnesium 4gm in 100ml NS 100 ML IV PRN (09:45)
[2018-07-11] MEDS ORDERED: potassium Cl 20 mEq SR tablet PO PRN (09:45)
[2018-07-11] MEDS ORDERED: magnesium Cl slow-release 64mg tablet PO PRN (09:45)
[2018-07-11] MEDS ORDERED: magnesium 2GM in 50ml NS 50 ML IV PRN (09:45)
[2018-07-11] MEDS: potassium Cl 40MEQ/NS 500ml 500 ML IV PRN (10:34)
[2018-07-11] MEDS ORDERED: MIDAZolam 5mg/5ml vial ONE (11:16)
[2018-07-11] MEDS ORDERED: fentaNYL /PF 50mcg/ml 5ml ampule ONE (11:17)
[2018-07-11] MEDS ORDERED: sugammadex 200mg/2ml injection IV ONE (11:20)
[2018-07-11] MEDS ORDERED: glycopyrrolate 0.2mg/ml inj ONE (11:20)
[2018-07-11] MEDS ORDERED: propofol 10mg/ml 20ml vial IV ONE (11:20)
[2018-07-11] MEDS ORDERED: neostigmine methylsulfate 1 MG/ML 10ml vial ONE (11:20)
[2018-07-11] MEDS ORDERED: sevoflurane 250ml liquid IH ONE (11:20)
--- NOTE | 2018-07-11 11:25 | NUR ---
Pt out to OR
[2018-07-11] MEDS ORDERED: ondansetron/PF 4mg/2ml inj ONE (12:46)
[2018-07-11] MEDS ORDERED: metoclopramide 5 mg/ml inj ONE (12:46)
[2018-07-11] MEDS ORDERED: ringers solution, lacted 1,000 ML IV SCH (12:51)
[2018-07-11] MEDS ORDERED: morphine 4 MG/ML inj SYRINge IV PRN ×2 (12:55)
[2018-07-11] MEDS ORDERED: fentaNYL/PF 50MCG/1 ML 2ML syringe IV PRN ×2 (12:55)
[2018-07-11] MEDS ORDERED: ondansetron/PF 4mg/2ml inj IV PRN (12:55)
[2018-07-11] MEDS ORDERED: labetalol 20mg/4ml (5mg/ml) syringe IV PRN (12:55)
[2018-07-11] MEDS ORDERED: hydrALAZINE 20mg/ml inj. IV PRN ×2 (12:55→17:00)
[2018-07-11] MEDS: iohexol 300 MG/1 ML 50ml polymer ONE (13:57)
[2018-07-11] MEDS ORDERED: heparin 1,000unit/ml 10ml vial 10 ML ONE (14:14)
[2018-07-11] MEDS ORDERED: gentamicin inj 400 MG in normal saline 100ml IV soln 90 ML IV ONE (14:35)
[2018-07-11] MEDS ORDERED: phenylephrine 10mg/ml inj. ONE (14:52)
[2018-07-11] MEDS ORDERED: albumin (Human) 5% 250ml 250 ML IV ONE (14:52)
[2018-07-11] MEDS ORDERED: fentaNYL/PF 50MCG/1 ML 2ML syringe ONE (15:29)
--- NOTE | 2018-07-11 16:14 | NUR ---
Received telephone report from BRENNA Masterson in Surgical
--- NOTE | 2018-07-11 16:15 | NUR ---
Pt arrived from OR. Report received from Dr. Marie.
[2018-07-11 16:37] LABS: INR 1.3 INR; PROTHROMBIN TIME 12.7 SECONDS (9.0-12.0)
[2018-07-11 16:40] LABS: PARTIAL THROMBOPLASTIN TIME > 153 SECONDS (22-32)
[2018-07-11 17:55] LABS: INR 1.1 INR; PARTIAL THROMBOPLASTIN TIME 43 SECONDS (22-32); PROTHROMBIN TIME 11.3 SECONDS (9.0-12.0)
--- NOTE | 2018-07-11 18:30 | NUR ---
Patient in room CICU 2008. I have received report from Nik and had the opportunity to ask questions and assume patient care.
--- NOTE | 2018-07-11 18:30 | NUR ---
Problems reprioritized. Patient report given, questions answered & plan of care reviewed with Chito RN.
[2018-07-11] MEDS: piperacillin/tazo 3.375gm/50ml 50 ML IV SCH (20:47)
[2018-07-11] MEDS: LORazepam 2 mg/ml vial IV PRN (20:47)
[2018-07-11] MEDS: nicotine 21mg patch - 24 hr TD SCH (21:00)
[2018-07-11] MEDS: HYDROmorphone 2mg tablet PO PRN (21:24)
--- NOTE | 2018-07-11 21:25 | NUR ---
Arterial line pulled out due to pt constant movement and restlessness
--- NOTE | 2018-07-11 22:40 | NUR ---
RN Note -MD Communication Left message with Dr. Jaimes's ansering service regarding pt's right foot is with out doppler pulse
--- NOTE | 2018-07-11 23:30 | NUR ---
RN Note -MD Communication Left message with Dr. Jaimes's answering service regarding pt's right foot is with out doppler pulse and increasing more cool to the touch
[2018-07-11] MEDS ORDERED: heparin 25,000 UNIT/250ml bag 250 ML IV SCH (23:53)
[2018-07-11] MEDS ORDERED: heparin 10,000 units/1 ML INJ IV ONE (23:55)
[2018-07-12] VITALS (23 sets, daily range): BP systolic 97–153; BP diastolic 37–77
[2018-07-12] MEDS ORDERED: iohexol 350MG/ML 100ml bottle IV ONE (00:06)
[2018-07-12] MEDS ORDERED: iohexol 350 MG/ML 50ML vial IV ONE (00:07)
[2018-07-12] MEDS ORDERED: heparin 10,000 units/1 ML INJ IV ONE (01:40)
[2018-07-12 01:43] LABS: BASOPHILS # (AUTO) 0.1 X10'3 (0-0.2); BASOPHILS % (AUTO) 0.3 % (0-1); EOSINOPHILS % (AUTO) 0.1 % (0-6); HEMATOCRIT 32.3 % (35.0-45.0); HEMOGLOBIN 11.3 g/dl (12.0-16.0); LYMPHOCYTES # (AUTO) 0.8 X10'3 (1.1-4.8); LYMPHOCYTES % (AUTO) 3.8 % (21-51); MEAN CORPUSCULAR HEMOGLOBIN 32.2 PG (27.0-31.0); MEAN CORPUSCULAR VOLUME 91.8 FL (78-98); MEAN PLATELET VOLUME 7.9 FL (7.4-10.4); MONOCYTES # (AUTO) 1.7 X10'3 (0-0.9); MONOCYTES % (AUTO) 8.2 % (2-12); NEUTROPHILS % (AUTO) 87.6 % (42-75); PLATELET COUNT 238 X10'3 (140-440); RED BLOOD COUNT 3.52 X10'6 (4.20-5.60); RED CELL DISTRIBUTION WIDTH 13.1 % (11.5-14.5); WHITE BLOOD COUNT 20.6 X10'3 (4.5-11.0)
[2018-07-12] MEDS: piperacillin/tazo 3.375gm/50ml 50 ML IV SCH ×4 (02:00→20:41)
[2018-07-12 02:02] LABS: ALBUMIN 2.4 G/DL (3.4-5.0); ANION GAP 14 (8-16); BLOOD UREA NITROGEN 10 MG/DL (7-18); BUN/CREATININE RATIO 10.1 (6.6-38.0); CALCIUM 7.5 MG/DL (8.5-10.1); CHLORIDE 106 MMOL/L (99-107); CREATININE 0.99 MG/DL (0.40-0.90); GLUCOSE 212 MG/DL (70-104); MAGNESIUM 1.2 MG/DL (1.5-2.4); POTASSIUM 3.8 MMOL/L (3.5-5.1); SODIUM 141 MMOL/L (135-145); TOTAL CARBON DIOXIDE 21.3 MMOL/L (24-32); eGFR 57 ML/MIN
[2018-07-12 02:04] LABS: PARTIAL THROMBOPLASTIN TIME 29 SECONDS (22-32)
--- NOTE | 2018-07-12 02:50 | NUR ---
RN Note -MD Communication Dr. Bolivar Called for CTA reading. Will take pt to surgery in AM.
[2018-07-12] MEDS: normal saline 1000ml 1,000 ML IV SCH ×3 (03:38→23:13)
[2018-07-12] MEDS: morphine 4 MG/ML inj SYRINge IV PRN ×4 (03:39→23:43)
--- NOTE | 2018-07-12 04:00 | NUR ---
RN Note -MD Communication Dr. Bolivar at bedside.
--- NOTE | 2018-07-12 06:30 | NUR ---
Patient in room CICU 2008. I have received report from BRENNA Dale and had the opportunity to ask questions and assume patient care.
[2018-07-12] MEDS: LORazepam 2 mg/ml vial IV PRN (07:13)
[2018-07-12] MEDS ORDERED: LIDOcaine 1%/PF 5ML 10 MG/ML VIAL ONE (07:21)
[2018-07-12] MEDS ORDERED: iohexol 300mg/ml 100ml inj. ONE (07:21)
--- NOTE | 2018-07-12 07:22 | NUR ---
Pt out to IR. Premedicated with morphine and ativan. Spoke with SO, pt verbalizing fears.
[2018-07-12] MEDS ORDERED: heparin 1,000 UNITS/NS 500ml 500 ML ONE (07:31)
[2018-07-12] MEDS ORDERED: fentaNYL/PF 50MCG/1 ML 2ML syringe ONE ×2 (07:31→09:31)
[2018-07-12] MEDS ORDERED: midazolam 2 mg/2 ml injection ONE (07:31)
[2018-07-12] MEDS: K and/or MAG REPLACEMENT MC SCH (08:00)
[2018-07-12] MEDS: amLODIPine 5mg tablet PO SCH (08:00)
[2018-07-12] MEDS: clopidogrel 75mg tablet PO SCH (08:00)
[2018-07-12] MEDS: levalbuterol 1.25mg/0.5ml nebule IH SCH ×2 (08:00→20:00)
[2018-07-12] MEDS: insulin glargine (Lantus) pen - multi-dose SQ SCH ×2 (08:00→22:40)
[2018-07-12] MEDS: pregabalin 25mg capsule PO SCH ×3 (08:00→20:39)
[2018-07-12] MEDS: lisinopril 5mg tablet PO SCH ×2 (08:00→20:40)
[2018-07-12] MEDS: atorvastatin 20mg tablet PO SCH (08:00)
[2018-07-12] MEDS ORDERED: LIDOcaine 1% (10mg/ml) 2ml vial ONE (08:42)
[2018-07-12] MEDS ORDERED: heparin 10,000 units/1 ML INJ ONE (08:43)
--- NOTE | 2018-07-12 09:15 | NUR ---
Pt back from IR. Arterial sheath in place to pressure bags. Pt mildly sedated, RASS 0.
--- NOTE | 2018-07-12 09:30 | NUR ---
Dr. Wahl called, received order to restart heparin gtt.
[2018-07-12] MEDS ORDERED: MIDAZolam 5mg/5ml vial ONE (09:32)
[2018-07-12] MEDS ORDERED: propofol inj 20 ML IV ONE (09:33)
[2018-07-12] MEDS ORDERED: LIDOcaine 2% (20mg/ml) 5ml vial ONE (09:33)
[2018-07-12] MEDS ORDERED: rocuronium 10mg/ml inj IV ONE ×2 (09:33→13:28)
[2018-07-12] MEDS ORDERED: ringers solution, lacted 1,000 ML IV SCH (09:59)
[2018-07-12] MEDS ORDERED: morphine 4 MG/ML inj SYRINge IV PRN ×2 (10:00)
[2018-07-12] MEDS ORDERED: hydrALAZINE 20mg/ml inj. IV PRN (10:00)
[2018-07-12] MEDS ORDERED: labetalol 20mg/4ml (5mg/ml) syringe IV PRN (10:00)
[2018-07-12] MEDS ORDERED: fentaNYL/PF 50MCG/1 ML 2ML syringe IV PRN ×2 (10:00)
[2018-07-12] MEDS ORDERED: ondansetron/PF 4mg/2ml inj IV PRN (10:00)
[2018-07-12] MEDS ORDERED: dexamethasone sod phosphate 10mg/ml inj ONE (10:19)
[2018-07-12] MEDS ORDERED: sevoflurane 250ml liquid IH ONE (10:19)
--- NOTE | 2018-07-12 10:20 | NUR ---
Pt out to OR.
[2018-07-12] MEDS ORDERED: phenylephrine 10mg/ml inj. ONE (10:39)
[2018-07-12] MEDS ORDERED: albumin (Human) 5% 250ml 250 ML IV ONE ×2 (10:47→10:54)
[2018-07-12] MEDS ORDERED: ondansetron/PF 4mg/2ml inj ONE (10:50)
[2018-07-12] MEDS ORDERED: metoclopramide 5 mg/ml inj ONE (10:58)
[2018-07-12] MEDS ORDERED: heparin 1,000unit/ml 10ml vial 10 ML ONE (11:46)
[2018-07-12] MEDS ORDERED: iohexol 300 MG/1 ML 50ml polymer ONE ×2 (13:02→13:24)
[2018-07-12] MEDS ORDERED: glycopyrrolate 0.2mg/ml inj ONE (13:28)
[2018-07-12] MEDS ORDERED: neostigmine methylsulfate 1 MG/ML 10ml vial ONE (13:29)
[2018-07-12 13:43] LABS: INR 1.3 INR; PROTHROMBIN TIME 13.2 SECONDS (9.0-12.0)
[2018-07-12 13:45] LABS: PARTIAL THROMBOPLASTIN TIME > 153 SECONDS (22-32)
--- NOTE | 2018-07-12 14:20 | NUR ---
Pt back from OR. Report received from Dr. Salinas.
--- NOTE | 2018-07-12 14:25 | NUR ---
DM Consult: Pt admit w/ clot to lower extremity s/p multiple surgeries for revascularization. Hx T2DM A1C 11.1 in May.NPO in OR today for femoral anterior tib bypass w/ thrombectomy per MD note. LBM 07/06. Pt will need high protein and DM eds once clinically stable prior to d/c. Rec: 1. advance to carb controlled post-op per MD 2. monitor for ONS post-op 3. MVM for wounds once PO 4. DM/^protein eds once stable post-op Addendum: 07/12/18 at [address] Amended: Links added.
[2018-07-12] MEDS: iohexol 300 MG/1 ML 50ml polymer ONE (14:44)
[2018-07-12] MEDS ORDERED: heparin 25,000 UNIT/250ml bag 250 ML IV SCH (14:52)
[2018-07-12] MEDS ORDERED: heparin 10,000 units/1 ML INJ IV PRN (15:00)
--- NOTE | 2018-07-12 15:00 | NUR ---
Called Angio, spoke with Dr. Baker. Was instructed to have nursing pull arterial sheath.
--- NOTE | 2018-07-12 15:30 | NUR ---
Arterial line and sheath discontinued, manual pressure held for 15 mins, site dressed with pressure dressing using 4x4 gauze and foam tape.
[2018-07-12 15:32] LABS: PARTIAL THROMBOPLASTIN TIME 89 SECONDS (22-32)
--- NOTE | 2018-07-12 18:30 | NUR ---
Patient in room CICU 2008. I have received report from Nik and had the opportunity to ask questions and assume patient care.
[2018-07-12] MEDS: lactobacillus rhamnosus 10,000 MMU CELLS/CAPSULE PO SCH (20:00)
[2018-07-12] MEDS: HYDROmorphone 2mg tablet PO PRN (20:54)
[2018-07-12] MEDS: nicotine 21mg patch - 24 hr TD SCH (21:00)
[2018-07-12 21:18] LABS: MAGNESIUM 1.3 MG/DL (1.5-2.4)
[2018-07-12 21:45] LABS: PARTIAL THROMBOPLASTIN TIME 40 SECONDS (22-32)
--- NOTE | 2018-07-12 23:00 | NUR ---
RN Note -MD Communication Called Dr. Wahl with PTT of 40. Received order to DC Heparin drip and start pt on Eliquis with first dose tonight
[2018-07-12] MEDS: apixaban 5mg tablet PO SCH (23:40)
[2018-07-13] VITALS (24 sets, daily range): BP systolic 11–122; BP diastolic 43–63
[2018-07-13] MEDS: piperacillin/tazo 3.375gm/50ml 50 ML IV SCH ×4 (02:13→20:09)
[2018-07-13 05:07] LABS: BASOPHILS % (AUTO) 0.1 % (0-1); EOSINOPHILS # (AUTO) 0.5 X10'3 (0-0.9); EOSINOPHILS % (AUTO) 2.7 % (0-6); HEMATOCRIT 23.9 % (35.0-45.0); HEMOGLOBIN 7.7 g/dl (12.0-16.0); LYMPHOCYTES % (AUTO) 5.9 % (21-51); MEAN CORPUSCULAR HEMOGLOBIN 29.9 PG (27.0-31.0); MEAN CORPUSCULAR HGB CONC 32.3 % (33.0-36.5); MEAN CORPUSCULAR VOLUME 92.5 FL (78-98); MEAN PLATELET VOLUME 7.8 FL (7.4-10.4); MONOCYTES # (AUTO) 1.8 X10'3 (0-0.9); NEUTROPHILS # (AUTO) 14.3 X10'3 (1.8-7.7); NEUTROPHILS % (AUTO) 81.3 % (42-75); PLATELET COUNT 238 X10'3 (140-440); RED BLOOD COUNT 2.59 X10'6 (4.20-5.60); RED CELL DISTRIBUTION WIDTH 14.4 % (11.5-14.5); WHITE BLOOD COUNT 17.6 X10'3 (4.5-11.0)
[2018-07-13 05:21] LABS: ALBUMIN 2.1 G/DL (3.4-5.0); ANION GAP 14 (8-16); BLOOD UREA NITROGEN 7 MG/DL (7-18); BUN/CREATININE RATIO 7.7 (6.6-38.0); CALCIUM 7.6 MG/DL (8.5-10.1); CHLORIDE 109 MMOL/L (99-107); CREATININE 0.91 MG/DL (0.40-0.90); GLUCOSE 225 MG/DL (70-104); MAGNESIUM 1.3 MG/DL (1.5-2.4); POTASSIUM 3.1 MMOL/L (3.5-5.1); SODIUM 145 MMOL/L (135-145); TOTAL CARBON DIOXIDE 22.1 MMOL/L (24-32); eGFR 62 ML/MIN
[2018-07-13] MEDS: potassium Cl 40MEQ/NS 500ml 500 ML IV PRN ×2 (05:55→17:40)
[2018-07-13 06:26] LABS: PLATELET ESTIMATE NORMAL; TOTAL CELLS COUNTED 100
--- NOTE | 2018-07-13 06:30 | NUR ---
Patient in room CICU 2008. I have received report from BRENNA Dale and had the opportunity to ask questions and assume patient care.
[2018-07-13] MEDS: lisinopril 5mg tablet PO SCH ×2 (07:46→20:00)
[2018-07-13] MEDS: lactobacillus rhamnosus 10,000 MMU CELLS/CAPSULE PO SCH ×2 (07:46→20:09)
[2018-07-13] MEDS: pregabalin 25mg capsule PO SCH ×3 (07:46→21:53)
[2018-07-13] MEDS: atorvastatin 20mg tablet PO SCH (07:46)
[2018-07-13] MEDS: clopidogrel 75mg tablet PO SCH ×2 (07:46→09:41)
[2018-07-13] MEDS: apixaban 5mg tablet PO SCH ×2 (07:50→20:09)
[2018-07-13] MEDS: insulin glargine (Lantus) pen - multi-dose SQ SCH ×2 (07:56→22:02)
[2018-07-13] MEDS: amLODIPine 5mg tablet PO SCH ×2 (08:00→09:02)
[2018-07-13] MEDS ORDERED: apixaban 2.5mg tablet PO SCH (08:00)
[2018-07-13] MEDS: K and/or MAG REPLACEMENT MC SCH (08:00)
[2018-07-13] MEDS: levalbuterol 1.25mg/0.5ml nebule IH SCH ×2 (08:00→20:00)
[2018-07-13] MEDS: morphine 4 MG/ML inj SYRINge IV PRN (09:03)
[2018-07-13] MEDS: insulin Lispro (HumaLOG) vial - multi-dose SQ SCH ×3 (09:49→19:25)
[2018-07-13] MEDS: normal saline 1000ml 1,000 ML IV SCH ×2 (16:03→17:40)
[2018-07-13 17:20] LABS: MAGNESIUM 2.2 MG/DL (1.5-2.4)
[2018-07-13] MEDS: HYDROmorphone 2mg tablet PO PRN (18:16)
--- NOTE | 2018-07-13 18:30 | NUR ---
Patient in room CICU 2009. I have received report from Dinesh CEJA, and had the opportunity to ask questions and assume patient care.
--- NOTE | 2018-07-13 20:00 | NUR ---
PT resting with no s/s of distress noted at this time. VSS. is at bedside. PT has Palpable pulse to graft site, doppler pulses present on bilat dorsalis pedis. PT has Prevena W[place] x2, they are CDI with no drainage noted. PT receiving 2L O2 to NC, tolerating well, O2 sat >94%. Bed is locked and low. Call light is within reach. Will continue to monitor.
[2018-07-13] MEDS: nicotine 21mg patch - 24 hr TD SCH ×2 (21:54→22:08)
--- NOTE | 2018-07-13 23:00 | NUR ---
PT resting, sleeping off and on. VSS. Pulses remain present to RT leg. Bed is locked and low. Call light is within reach. Will continue to monitor.
[2018-07-14] VITALS (19 sets, daily range): BP systolic 94–141; BP diastolic 46–64
[2018-07-14] MEDS: HYDROmorphone 2mg tablet PO PRN ×2 (00:21→16:12)
[2018-07-14] MEDS: potassium Cl 40MEQ/NS 500ml 500 ML IV PRN (00:28)
[2018-07-14] MEDS: ondansetron/PF 4mg/2ml inj IV PRN (01:04)
[2018-07-14 01:10] LABS: ALANINE AMINOTRANSFERASE 28 U/L (12-78); ALBUMIN 1.9 G/DL (3.4-5.0); ALBUMIN/GLOBULIN RATIO 0.6 (1.1-1.5); ALKALINE PHOSPHATASE 102 IU/L (46-116); ANION GAP 7 (8-16); ASPARTATE AMINO TRANSFERASE 98 U/L (10-37); BILIRUBIN,TOTAL 0.3 MG/DL (0.1-1.0); BLOOD UREA NITROGEN 6 MG/DL (7-18); BUN/CREATININE RATIO 7.4 (6.6-38.0); CALCIUM 7.5 MG/DL (8.5-10.1); CHLORIDE 109 MMOL/L (99-107); CREATININE 0.81 MG/DL (0.40-0.90); GLUCOSE 179 MG/DL (70-104); MAGNESIUM 1.9 MG/DL (1.5-2.4); POTASSIUM 3.3 MMOL/L (3.5-5.1); SODIUM 143 MMOL/L (135-145); TOTAL CARBON DIOXIDE 27.1 MMOL/L (24-32); TOTAL PROTEIN 5.1 G/DL (6.4-8.2); eGFR 71 ML/MIN
[2018-07-14 01:33] LABS: BASOPHILS % (AUTO) 0.2 % (0-1); EOSINOPHILS # (AUTO) 0.6 X10'3 (0-0.9); EOSINOPHILS % (AUTO) 3.1 % (0-6); HEMATOCRIT 22.1 % (35.0-45.0); HEMOGLOBIN 7.7 g/dl (12.0-16.0); LYMPHOCYTES # (AUTO) 2.1 X10'3 (1.1-4.8); LYMPHOCYTES % (AUTO) 9.9 % (21-51); MEAN CORPUSCULAR VOLUME 91.3 FL (78-98); MEAN PLATELET VOLUME 8.1 FL (7.4-10.4); MONOCYTES # (AUTO) 1.8 X10'3 (0-0.9); MONOCYTES % (AUTO) 8.7 % (2-12); NEUTROPHILS # (AUTO) 16.4 X10'3 (1.8-7.7); NEUTROPHILS % (AUTO) 78.1 % (42-75); PLATELET COUNT 281 X10'3 (140-440); RED BLOOD COUNT 2.42 X10'6 (4.20-5.60); RED CELL DISTRIBUTION WIDTH 13.5 % (11.5-14.5); WHITE BLOOD COUNT 20.9 X10'3 (4.5-11.0)
[2018-07-14] MEDS: normal saline 1000ml 1,000 ML IV SCH (02:03)
[2018-07-14] MEDS: piperacillin/tazo 3.375gm/50ml 50 ML IV SCH ×4 (02:20→22:25)
--- NOTE | 2018-07-14 06:49 | NUR ---
Problems reprioritized. Patient report given, questions answered & plan of care reviewed with Rohini CEJA.
--- NOTE | 2018-07-14 06:50 | NUR ---
Patient in room CICU 2008. I have received report from Jose CEJA and had the opportunity to ask questions and assume patient care.
[2018-07-14] MEDS: K and/or MAG REPLACEMENT MC SCH (08:00)
[2018-07-14] MEDS: levalbuterol 1.25mg/0.5ml nebule IH SCH ×2 (08:00→20:00)
[2018-07-14] MEDS: amLODIPine 5mg tablet PO SCH (08:05)
[2018-07-14] MEDS: clopidogrel 75mg tablet PO SCH (08:05)
[2018-07-14] MEDS: atorvastatin 20mg tablet PO SCH (08:05)
[2018-07-14] MEDS: apixaban 5mg tablet PO SCH ×2 (08:05→22:26)
[2018-07-14] MEDS: pregabalin 25mg capsule PO SCH ×3 (08:05→22:27)
[2018-07-14] MEDS: lisinopril 5mg tablet PO SCH ×2 (08:05→20:00)
[2018-07-14] MEDS: lactobacillus rhamnosus 10,000 MMU CELLS/CAPSULE PO SCH ×2 (08:05→22:25)
[2018-07-14] MEDS: acetaminophen 325mg tablet PO PRN ×2 (08:06→16:13)
[2018-07-14] MEDS: insulin glargine (Lantus) pen - multi-dose SQ SCH ×2 (08:55→23:15)
[2018-07-14] MEDS: insulin Lispro (HumaLOG) vial - multi-dose SQ SCH ×2 (08:57→14:40)
[2018-07-14] MEDS: morphine 4 MG/ML inj SYRINge IV PRN ×2 (12:07→23:05)
--- NOTE | 2018-07-14 13:24 | NUR ---
Pt seen by ANGI for written/verbal DM/high protein eds w/ RD contact information provided. Pt not feeling well in pain at time of visit but does agree to inflatable buildings laminator jv w/ all lunches and small one for dinner tonight. Will need f/u reinforcement once feeling better prior to d/c. Addendum: 07/14/18 at [address] Amended: Links added.
--- NOTE | 2018-07-14 15:08 | NUR ---
Unsuccessful attempts to place Extended PIV x 3 to right upper arm basilic x 1, brachial x 1, and forearm x1. PIV also attempted but unsuccessful to left forearm Addendum: 07/14/18 at 1511 by Simin Quinones RN Amended: Links added.
--- NOTE | 2018-07-14 17:48 | NUR ---
Problems reprioritized. Patient report given, questions answered & plan of care reviewed with Ruth CEJA. Patient transferred to room 354A with 2 RN at bedside on portable monitor with all belongings. Patients DTR aware of transfer.
--- NOTE | 2018-07-14 18:00 | NUR ---
Pt. to room 354 A from [facility]. Pt. alert, oriented and in no apparent distress at this time. Pt. oriented to room and call light with in reach. Pt wound vac running at 75 and is holding good suction. Pt. dressing is CDI. Will continue to monitor.
--- NOTE | 2018-07-14 18:00 | NUR ---
[facility]. Drowsy, in no pain or distress at this time. Addendum: 07/14/18 at 2002 by Olivia Caba RN Amended: Links added.
--- NOTE | 2018-07-14 18:15 | NUR ---
Patient seen laying in her bed sleeping. Patient had just been transferred to med/surg unit prior to shift change.
--- NOTE | 2018-07-14 18:30 | NUR ---
Patient in room VIK 354. I have received report from Ruth CEJA and had the opportunity to ask questions and assume patient care.
--- NOTE | 2018-07-14 18:58 | NUR ---
Problems reprioritized. Patient report given, questions answered & plan of care reviewed with BRENNA Galarza .
--- NOTE | 2018-07-14 22:59 | NUR ---
Blood pressure med held earlier for BP of 144/70, pulse 90 per surgeon order to keep systolic above 160-170.
[2018-07-14] MEDS: nicotine 21mg patch - 24 hr TD SCH (23:08)
[2018-07-15] MEDS: piperacillin/tazo 3.375gm/50ml 50 ML IV SCH ×4 (02:59→21:02)
[2018-07-15] MEDS: morphine 4 MG/ML inj SYRINge IV PRN ×4 (03:16→21:20)
--- NOTE | 2018-07-15 06:30 | NUR ---
Patient in room VIK 354. I have received report from BRENNA Baker and had the opportunity to ask questions and assume patient care.
--- NOTE | 2018-07-15 06:30 | NUR ---
Problems reprioritized. Patient report given, questions answered & plan of care reviewed with Cecilia RN. Patient currently sleeping. No drainage noted to wound vac all shiftdressing remain intact. central line dressing change completed and all lumens patent.
[2018-07-15 08:00] VITALS: BP 145/77
[2018-07-15] MEDS: levalbuterol 1.25mg/0.5ml nebule IH SCH ×2 (08:00→20:00)
[2018-07-15] MEDS: lisinopril 5mg tablet PO SCH ×2 (08:51→21:14)
[2018-07-15] MEDS: pregabalin 25mg capsule PO SCH ×3 (08:51→20:56)
[2018-07-15] MEDS: amLODIPine 5mg tablet PO SCH (08:51)
[2018-07-15] MEDS: apixaban 5mg tablet PO SCH (08:51)
[2018-07-15] MEDS: atorvastatin 20mg tablet PO SCH (08:51)
[2018-07-15] MEDS: clopidogrel 75mg tablet PO SCH (08:51)
[2018-07-15] MEDS: lactobacillus rhamnosus 10,000 MMU CELLS/CAPSULE PO SCH ×2 (08:51→21:02)
[2018-07-15] MEDS: insulin glargine (Lantus) pen - multi-dose SQ SCH ×2 (08:58→21:13)
[2018-07-15 10:48] LABS: BASOPHILS % (AUTO) 0.1 % (0-1); EOSINOPHILS # (AUTO) 0.6 X10'3 (0-0.9); EOSINOPHILS % (AUTO) 3.5 % (0-6); HEMATOCRIT 22.6 % (35.0-45.0); HEMOGLOBIN 7.2 g/dl (12.0-16.0); LYMPHOCYTES # (AUTO) 1.5 X10'3 (1.1-4.8); LYMPHOCYTES % (AUTO) 8.9 % (21-51); MEAN CORPUSCULAR HEMOGLOBIN 29.4 PG (27.0-31.0); MEAN CORPUSCULAR HGB CONC 31.8 % (33.0-36.5); MEAN CORPUSCULAR VOLUME 92.7 FL (78-98); MEAN PLATELET VOLUME 7.5 FL (7.4-10.4); MONOCYTES # (AUTO) 1.4 X10'3 (0-0.9); MONOCYTES % (AUTO) 8.2 % (2-12); NEUTROPHILS # (AUTO) 13.7 X10'3 (1.8-7.7); NEUTROPHILS % (AUTO) 79.3 % (42-75); PLATELET COUNT 395 X10'3 (140-440); RED BLOOD COUNT 2.44 X10'6 (4.20-5.60); WHITE BLOOD COUNT 17.3 X10'3 (4.5-11.0)
[2018-07-15 11:04] LABS: ALBUMIN 1.7 G/DL (3.4-5.0); ANION GAP 9 (8-16); BLOOD UREA NITROGEN 8 MG/DL (7-18); CALCIUM 7.7 MG/DL (8.5-10.1); CHLORIDE 106 MMOL/L (99-107); GLUCOSE 187 MG/DL (70-104); POTASSIUM 3.2 MMOL/L (3.5-5.1); SODIUM 141 MMOL/L (135-145); TOTAL CARBON DIOXIDE 26.3 MMOL/L (24-32); eGFR 72 ML/MIN
[2018-07-15 12:00] VITALS: BP 137/77
[2018-07-15] MEDS: potassium Cl 20 mEq SR tablet PO PRN (12:16)
[2018-07-15] MEDS: insulin Lispro (HumaLOG) vial - multi-dose SQ SCH (13:06)
--- NOTE | 2018-07-15 14:41 | NUR ---
Reassessment:Pt advanced to CHO control from NPO 07/14. Pt PO intake was 25-50% not currently meeting nutrition needs. Pt is eating 75% protein and 25% milk with no starch consumption. No PO documentation for today. LBM 07/[address] for written/verbal DM/high protein eds w/ RD contact information provided. Pt not feeling well in pain at time of visit but does agree to senior software qa analyst salads w/ all lunches and small one for dinner tonight. Will need f/u reinforcement once feeling better prior to d/c. DM Consult: Pt admit w/ clot to lower extremity s/p multiple surgeries for revascularization. Hx T2DM A1C 11.1 in May.NPO in OR today for femoral anterior tib bypass w/ thrombectomy per MD note. LBM 07/06. Pt will need high protein and DM eds once clinically stable prior to d/c. Rec: 1. advance to carb controlled post-op per MD 2. monitor for ONS post-op 3. MVM for wounds once PO prior to d/c Addendum: 07/15/18 at [address] Amended: Links added. Addendum: 07/15/18 at [address] Reassessment:Pt advanced to CHO control from NPO 07/14. Pt PO intake was 25-50% not currently meeting nutrition needs. Pt reports poor appetite due to pain. Discussed food options with pt and SO. Pt prefers hardboiled eggs for breakfast, cottage cheese and yogurt with fruit for lunch and a plate of ham and cheese for dinner, discussed with dietary. Pt will not drink ensure. LBM 07/09. Will continue to monitor. Rec: 1. Continue with CHO control diet 2. monitor for ONS post-op 3. MVM for wounds once PO prior to d/c Pt seen by RD for written/verbal DM/high protein eds w/ RD contact information provided. Pt not feeling well in pain at time of visit but does agree to senior software qa analyst salads w/ all lunches and small one for dinner tonight. Will need f/u reinforcement once feeling better prior to d/c. DM Consult: Pt admit w/ clot to lower extremity s/p multiple surgeries for revascularization. Hx T2DM A1C 11.1 in May.NPO in OR today for femoral anterior tib bypass w/ thrombectomy per note. LBM 07/06. Pt will need high protein and DM eds once clinically stable prior to d/c. Addendum: 07/15/18 at 1608 by [address]élica Ackerman RD RD agree with note addendum
[2018-07-15] MEDS: LORazepam 2 mg/ml vial IV PRN (15:22)
--- NOTE | 2018-07-15 15:46 | NUR ---
Reassessment:Pt advanced to CHO control from NPO 07/14. Pt PO intake was 25-50% not currently meeting nutrition needs. Pt reports poor appetite due to pain. Discussed food options with pt and SO. Pt prefers hardboiled eggs for breakfast, cottage cheese and yogurt with fruit for lunch and a plate of ham and cheese for dinner, discussed with dietary. Pt will not drink ensure. LBM 07/09. Will continue to monitor. Pt seen by RD for written/verbal DM/high protein eds w/ RD contact information provided. Pt not feeling well in pain at time of visit but does agree to rack production worker salads w/ all lunches and small one for dinner tonight. Will need f/u reinforcement once feeling better prior to d/c. DM Consult: Pt admit w/ clot to lower extremity s/p multiple surgeries for revascularization. Hx T2DM A1C 11.1 in May.NPO in OR today for femoral anterior tib bypass w/ thrombectomy per MD note. LBM 07/06. Pt will need high protein and DM eds once clinically stable prior to d/c. Rec: 1. Continue with CHO control diet 2. monitor for ONS post-op 3. MVM for wounds once PO prior to d/c Addendum: 07/15/18 at [address] Amended: Links added. Addendum: 07/15/18 at [address] Reassessment:Pt advanced to CHO control from NPO 07/14. Pt PO intake was 25-50% not currently meeting nutrition needs. Pt reports poor appetite due to pain. Discussed food options with pt and SO. Pt prefers hardboiled eggs for breakfast, cottage cheese and yogurt with fruit for lunch and a plate of ham and cheese for dinner, discussed with dietary. Pt will not drink ensure. LBM 07/09. Will continue to monitor. Rec: 1. Continue with CHO control diet 2. monitor for ONS post-op 3. MVM for wounds once PO prior to d/c Pt seen by RD for written/verbal DM/high protein eds w/ RD contact information provided. Pt not feeling well in pain at time of visit but does agree to rack production worker salads w/ all lunches and small one for dinner tonight. Will need f/u reinforcement once feeling better prior to d/c. DM Consult: Pt admit w/ clot to lower extremity s/p multiple surgeries for revascularization. Hx T2DM A1C 11.1 in May.NPO in OR today for femoral anterior tib bypass w/ thrombectomy per note. LBM 07/06. Pt will need high protein and DM eds once clinically stable prior to d/c. Addendum: 07/15/18 at [address] Reassessment:Pt advanced to non concentrated sweets and Heart Healthy diet from NPO 07/14. Pt PO intake was 25-50% not currently meeting nutrition needs. Pt reports poor appetite due to pain. Discussed food options with pt and SO. Pt prefers hardboiled eggs for breakfast, cottage cheese and yogurt with fruit for lunch and a plate of ham and cheese for dinner, discussed with dietary. Pt will not drink ensure. LBM 07/09. Will continue to monitor. Rec: 1. Continue with non concentrated sweet diet and heart healthy diet 2. monitor for ONS post-op 3. MVM for wounds once PO prior to d/c Pt seen by RD for written/verbal DM/high protein eds w/ RD contact information provided. Pt not feeling well in pain at time of visit but does agree to rack production worker salads w/ all lunches and small one for dinner tonight. Will need f/u reinforcement once feeling better prior to d/c. DM Consult: Pt admit w/ clot to lower extremity s/p multiple surgeries for revascularization. Hx T2DM A1C 11.1 in May.NPO in OR today for femoral anterior tib bypass w/ thrombectomy per note. LBM 07/06. Pt will need high protein and DM eds once clinically stable prior to d/c. Addendum: 07/15/18 at 1608 [address]a Ack[address] RD RD agree with note addendum
[2018-07-15 18:00] VITALS: BP 123/55
--- NOTE | 2018-07-15 18:40 | NUR ---
Received report from primary care nurse Cecilia RN. Assumed patient care. Patient is resting with relaxed and unlabored respirations on 2LNC. In no apparent distress. Call light and items of frequent use within reach. Will continue to monitor for changes.
--- NOTE | 2018-07-15 18:49 | NUR ---
Problems reprioritized. Patient report given, questions answered & plan of care reviewed with BRENNA Hernandez.
[2018-07-15] MEDS: nicotine 21mg patch - 24 hr TD SCH (21:03)
[2018-07-16] VITALS: BP 133/70
[2018-07-16] MEDS: morphine 4 MG/ML inj SYRINge IV PRN ×4 (01:31→19:26)
[2018-07-16] MEDS: piperacillin/tazo 3.375gm/50ml 50 ML IV SCH ×4 (02:55→19:25)
--- NOTE | 2018-07-16 04:53 | NUR ---
Addressed constipation issue with patient and she was reporting her usual regimen is every 2 days and would like MOM after her procedure later in the day.
--- NOTE | 2018-07-16 06:30 | NUR ---
Patient in room VIK 354. I have received report from BRENNA Hernandez and had the opportunity to ask questions and assume patient care.
[2018-07-16 07:00] VITALS: BP 110/45
[2018-07-16] MEDS: lisinopril 5mg tablet PO SCH ×2 (07:34→19:25)
[2018-07-16] MEDS: clopidogrel 75mg tablet PO SCH (07:34)
[2018-07-16] MEDS: amLODIPine 5mg tablet PO SCH (07:34)
[2018-07-16] MEDS: atorvastatin 20mg tablet PO SCH (07:34)
[2018-07-16] MEDS: pregabalin 25mg capsule PO SCH ×3 (07:34→20:32)
[2018-07-16] MEDS: lactobacillus rhamnosus 10,000 MMU CELLS/CAPSULE PO SCH ×2 (07:35→19:25)
[2018-07-16] MEDS: insulin glargine (Lantus) pen - multi-dose SQ SCH (07:59)
[2018-07-16 08:18] LABS: BASOPHILS % (AUTO) 0.3 % (0-1); EOSINOPHILS # (AUTO) 0.8 X10'3 (0-0.9); EOSINOPHILS % (AUTO) 4.9 % (0-6); HEMATOCRIT 22.6 % (35.0-45.0); HEMOGLOBIN 7.3 g/dl (12.0-16.0); LYMPHOCYTES % (AUTO) 18.3 % (21-51); MEAN CORPUSCULAR HEMOGLOBIN 29.6 PG (27.0-31.0); MEAN CORPUSCULAR HGB CONC 32.2 % (33.0-36.5); MEAN CORPUSCULAR VOLUME 91.8 FL (78-98); MEAN PLATELET VOLUME 7.5 FL (7.4-10.4); MONOCYTES # (AUTO) 1.7 X10'3 (0-0.9); MONOCYTES % (AUTO) 10.2 % (2-12); NEUTROPHILS # (AUTO) 10.8 X10'3 (1.8-7.7); NEUTROPHILS % (AUTO) 66.3 % (42-75); PLATELET COUNT 467 X10'3 (140-440); RED BLOOD COUNT 2.46 X10'6 (4.20-5.60); RED CELL DISTRIBUTION WIDTH 15.3 % (11.5-14.5); WHITE BLOOD COUNT 16.3 X10'3 (4.5-11.0)
[2018-07-16 08:32] LABS: ALBUMIN 1.6 G/DL (3.4-5.0); ANION GAP 4 (8-16); BLOOD UREA NITROGEN 10 MG/DL (7-18); BUN/CREATININE RATIO 12.3 (6.6-38.0); CALCIUM 7.6 MG/DL (8.5-10.1); CHLORIDE 107 MMOL/L (99-107); CREATININE 0.81 MG/DL (0.40-0.90); GLUCOSE 113 MG/DL (70-104); POTASSIUM 3.3 MMOL/L (3.5-5.1); SODIUM 141 MMOL/L (135-145); TOTAL CARBON DIOXIDE 30.1 MMOL/L (24-32); eGFR 71 ML/MIN
[2018-07-16] MEDS: potassium Cl 20 mEq SR tablet PO PRN ×3 (09:23→16:44)
[2018-07-16] MEDS: insulin Lispro (HumaLOG) vial - multi-dose SQ SCH (10:13)
[2018-07-16] MEDS ORDERED: fentaNYL/PF 50MCG/1 ML 2ML syringe ONE (11:12)
[2018-07-16] MEDS ORDERED: midazolam 2 mg/2 ml injection ONE (11:12)
[2018-07-16] MEDS ORDERED: LIDOcaine 1%/PF 5ML 10 MG/ML VIAL ONE (11:13)
[2018-07-16 11:30] VITALS: BP 118/50
[2018-07-16] MEDS: LORazepam 2 mg/ml vial IV PRN (12:36)
[2018-07-16] MEDS: normal saline 1000ml 1,000 ML IV SCH (12:47)
--- NOTE | 2018-07-16 14:00 | NUR ---
At about 1130, attempt to bring patient to IR for Groshong, pt had eaten breakfast and medication options discussed. At this time, patient refusing Groshong catheter placement stating she wants it done Thursday. Patient oriented to reasoning behind catheter and purpose for procedure. RN notified and Dr Jaime notified. Dr Jaime spoke to patient again and patient consented. Plan to proceed with procedure at around 1400 to allow for sedation. RN aware. 1345: RN at bedside, patient again refusing stating she did not know the purpose fo the Groshong and stated she wants it done Thursday or Thursday. Addison again to bedside to converse with patient. Pt again refusing. RN Justina aware. Justina stated she would contact primary MD to reinstate orders for diet and anticoagulation.
[2018-07-16 18:00] VITALS: BP 155/63
--- NOTE | 2018-07-16 18:20 | NUR ---
Problems reprioritized. Patient report given, questions answered & plan of care reviewed with BRENNA Hernandez.
[2018-07-16] MEDS: albuterol 2.5 MG/3 ML nebule NEB SCH (20:00)
[2018-07-16] MEDS: apixaban 5mg tablet PO SCH (20:33)
[2018-07-16] MEDS: nicotine 21mg patch - 24 hr TD SCH (20:34)
[2018-07-17] VITALS: BP 107/62
[2018-07-17] MEDS: normal saline 1000ml 1,000 ML IV SCH ×2 (01:23→16:27)
[2018-07-17] MEDS: piperacillin/tazo 3.375gm/50ml 50 ML IV SCH ×4 (01:23→19:41)
[2018-07-17] MEDS: morphine 4 MG/ML inj SYRINge IV PRN ×6 (01:24→23:37)
[2018-07-17 04:15] LABS: ALBUMIN 1.7 G/DL (3.4-5.0); ANION GAP 8 (8-16); BLOOD UREA NITROGEN 9 MG/DL (7-18); BUN/CREATININE RATIO 11.3 (6.6-38.0); CALCIUM 7.5 MG/DL (8.5-10.1); CHLORIDE 107 MMOL/L (99-107); GLUCOSE 76 MG/DL (70-104); POTASSIUM 3.5 MMOL/L (3.5-5.1); SODIUM 143 MMOL/L (135-145); TOTAL CARBON DIOXIDE 27.9 MMOL/L (24-32); eGFR 72 ML/MIN
[2018-07-17 04:33] LABS: BASOPHILS # (AUTO) 0.1 X10'3 (0-0.2); BASOPHILS % (AUTO) 0.3 % (0-1); EOSINOPHILS # (AUTO) 0.6 X10'3 (0-0.9); EOSINOPHILS % (AUTO) 3.8 % (0-6); HEMATOCRIT 22.9 % (35.0-45.0); HEMOGLOBIN 7.4 g/dl (12.0-16.0); LYMPHOCYTES # (AUTO) 2.7 X10'3 (1.1-4.8); LYMPHOCYTES % (AUTO) 15.9 % (21-51); MEAN CORPUSCULAR HEMOGLOBIN 29.6 PG (27.0-31.0); MEAN CORPUSCULAR HGB CONC 32.3 % (33.0-36.5); MEAN CORPUSCULAR VOLUME 91.8 FL (78-98); MEAN PLATELET VOLUME 7.3 FL (7.4-10.4); MONOCYTES # (AUTO) 1.7 X10'3 (0-0.9); MONOCYTES % (AUTO) 9.8 % (2-12); NEUTROPHILS # (AUTO) 12.1 X10'3 (1.8-7.7); NEUTROPHILS % (AUTO) 70.2 % (42-75); PLATELET COUNT 556 X10'3 (140-440); RED BLOOD COUNT 2.49 X10'6 (4.20-5.60); RED CELL DISTRIBUTION WIDTH 14.8 % (11.5-14.5); WHITE BLOOD COUNT 17.2 X10'3 (4.5-11.0)
[2018-07-17 07:11] VITALS: BP 123/54
--- NOTE | 2018-07-17 08:00 | NUR ---
Patient blood sugar not treated because blood glucose was low and replaced with 1 glucoshot and decreased a level.
[2018-07-17] MEDS: amLODIPine 5mg tablet PO SCH (10:31)
[2018-07-17] MEDS: lactobacillus rhamnosus 10,000 MMU CELLS/CAPSULE PO SCH ×2 (10:31→19:41)
[2018-07-17] MEDS: atorvastatin 20mg tablet PO SCH (10:32)
[2018-07-17] MEDS: apixaban 5mg tablet PO SCH ×2 (10:32→19:41)
[2018-07-17] MEDS: lisinopril 5mg tablet PO SCH ×2 (10:32→19:41)
[2018-07-17] MEDS: clopidogrel 75mg tablet PO SCH (10:33)
[2018-07-17] MEDS: pregabalin 25mg capsule PO SCH ×3 (10:33→20:33)
[2018-07-17 12:00] VITALS: BP 124/59
--- NOTE | 2018-07-17 12:58 | NUR ---
Patient in room VIK 354. I have received report from Mary CEJA and had the opportunity to ask questions and assume patient care.
--- NOTE | 2018-07-17 14:09 | NUR ---
patient blood sugar was 111 at lunch and consumed only 15 carbs. after reviewing chart patient has steadily dropped from lvl 6 to level 2 with no therapy given. Did not treat patient for lunch time carb intake because so little carbs and trend patient has exhibited in the passed 24 hours, will reassess BG at 1700
--- NOTE | 2018-07-17 17:00 | NUR ---
wound care provided cleansed site with saline pat dry with sterile gauze, redressed right leg with island dressing.
[2018-07-17 18:00] VITALS: BP 135/65
--- NOTE | 2018-07-17 18:28 | NUR ---
Received report from primary care nurse Nomi RN. Patient is awake and alert on room air in no apparent distress. Call light and items of frequent use within reach. El MARIE at her bedside. Will continue to monitor for changes.
--- NOTE | 2018-07-17 19:00 | NUR ---
Problems reprioritized. Patient report given, questions answered & plan of care reviewed with Mary CEJA.
[2018-07-17] MEDS: nicotine 21mg patch - 24 hr TD SCH (20:33)
[2018-07-17] MEDS ORDERED: insulin glargine (Lantus) pen - multi-dose SQ SCH (21:00)
[2018-07-17] MEDS: LORazepam 2 mg/ml vial IV PRN (21:17)
[2018-07-18] VITALS: BP 108/58
[2018-07-18] MEDS: morphine 4 MG/ML inj SYRINge IV PRN ×7 (02:13→22:07)
[2018-07-18] MEDS: piperacillin/tazo 3.375gm/50ml 50 ML IV SCH ×4 (02:13→19:24)
[2018-07-18] MEDS: normal saline 1000ml 1,000 ML IV SCH ×2 (04:59→22:19)
[2018-07-18 05:16] LABS: BASOPHILS % (AUTO) 0.3 % (0-1); EOSINOPHILS # (AUTO) 0.7 X10'3 (0-0.9); EOSINOPHILS % (AUTO) 4.9 % (0-6); HEMATOCRIT 23.2 % (35.0-45.0); HEMOGLOBIN 7.4 g/dl (12.0-16.0); LYMPHOCYTES # (AUTO) 3.1 X10'3 (1.1-4.8); LYMPHOCYTES % (AUTO) 21.2 % (21-51); MEAN CORPUSCULAR HEMOGLOBIN 29.7 PG (27.0-31.0); MEAN CORPUSCULAR HGB CONC 31.9 % (33.0-36.5); MEAN CORPUSCULAR VOLUME 93.1 FL (78-98); MEAN PLATELET VOLUME 7.2 FL (7.4-10.4); MONOCYTES # (AUTO) 1.5 X10'3 (0-0.9); MONOCYTES % (AUTO) 10.3 % (2-12); NEUTROPHILS # (AUTO) 9.3 X10'3 (1.8-7.7); NEUTROPHILS % (AUTO) 63.3 % (42-75); PLATELET COUNT 663 X10'3 (140-440); RED BLOOD COUNT 2.49 X10'6 (4.20-5.60); RED CELL DISTRIBUTION WIDTH 14.7 % (11.5-14.5); WHITE BLOOD COUNT 14.7 X10'3 (4.5-11.0)
[2018-07-18 05:30] LABS: ALBUMIN 1.7 G/DL (3.4-5.0); ANION GAP 8 (8-16); BLOOD UREA NITROGEN 7 MG/DL (7-18); BUN/CREATININE RATIO 9.2 (6.6-38.0); CALCIUM 7.7 MG/DL (8.5-10.1); CHLORIDE 106 MMOL/L (99-107); CREATININE 0.76 MG/DL (0.40-0.90); GLUCOSE 169 MG/DL (70-104); POTASSIUM 3.7 MMOL/L (3.5-5.1); SODIUM 141 MMOL/L (135-145); TOTAL CARBON DIOXIDE 26.7 MMOL/L (24-32); eGFR 77 ML/MIN
--- NOTE | 2018-07-18 06:42 | NUR ---
Patient in room VIK 354. I have received report from Mary CEJA and had the opportunity to ask questions and assume patient care.
[2018-07-18 07:00] VITALS: BP 117/57
[2018-07-18] MEDS: atorvastatin 20mg tablet PO SCH (07:44)
[2018-07-18] MEDS: apixaban 5mg tablet PO SCH ×2 (07:44→19:23)
[2018-07-18] MEDS: pregabalin 25mg capsule PO SCH ×3 (07:44→22:08)
[2018-07-18] MEDS: amLODIPine 5mg tablet PO SCH (07:44)
[2018-07-18] MEDS: lactobacillus rhamnosus 10,000 MMU CELLS/CAPSULE PO SCH ×2 (07:44→19:23)
[2018-07-18] MEDS: clopidogrel 75mg tablet PO SCH (07:44)
[2018-07-18] MEDS: lisinopril 5mg tablet PO SCH ×2 (07:45→19:24)
[2018-07-18 09:31] LABS: NUCLEATED RED BLOOD CELLS 1 /100WBC (0-0); TOTAL CELLS COUNTED 100
[2018-07-18 09:34] LABS: ANISOCYTOSIS 1+; PLATELET ESTIMATE INCREASED; POLYCHROMASIA 2+
[2018-07-18 09:37] LABS: HYPOCHROMASIA 2+; TOXIC GRANULATION 1+
[2018-07-18] MEDS: insulin Lispro (HumaLOG) vial - multi-dose SQ SCH ×3 (09:37→19:19)
[2018-07-18 09:39] LABS: LARGE PLATELETS FEW
--- NOTE | 2018-07-18 15:06 | NUR ---
Wound care on her right leg done, incision looks fine - no signs of infection noted
--- NOTE | 2018-07-18 18:50 | NUR ---
Patient in room VIK 354. I have received report from Lindsay CEJA and had the opportunity to ask questions and assume patient care. Patient eating dinner, will continue to monitor.
--- NOTE | 2018-07-18 19:02 | NUR ---
Problems reprioritized. Patient report given, questions answered & plan of care reviewed with Jill CEJA.
[2018-07-18 19:42] VITALS: BP 130/63
[2018-07-18] MEDS: nicotine 21mg patch - 24 hr TD SCH (22:10)
[2018-07-19] VITALS: BP 146/69
[2018-07-19] MEDS: morphine 4 MG/ML inj SYRINge IV PRN ×8 (01:27→22:08)
[2018-07-19] MEDS: piperacillin/tazo 3.375gm/50ml 50 ML IV SCH ×4 (01:27→19:25)
[2018-07-19] MEDS: ondansetron/PF 4mg/2ml inj IV PRN (01:40)
[2018-07-19 06:49] LABS: BASOPHILS % (AUTO) 0.3 % (0-1); EOSINOPHILS # (AUTO) 0.7 X10'3 (0-0.9); EOSINOPHILS % (AUTO) 5.1 % (0-6); HEMATOCRIT 23.9 % (35.0-45.0); HEMOGLOBIN 7.6 g/dl (12.0-16.0); LYMPHOCYTES # (AUTO) 2.6 X10'3 (1.1-4.8); MEAN CORPUSCULAR HEMOGLOBIN 29.7 PG (27.0-31.0); MEAN CORPUSCULAR HGB CONC 31.8 % (33.0-36.5); MEAN CORPUSCULAR VOLUME 93.5 FL (78-98); MEAN PLATELET VOLUME 7.4 FL (7.4-10.4); MONOCYTES # (AUTO) 1.4 X10'3 (0-0.9); MONOCYTES % (AUTO) 9.3 % (2-12); NEUTROPHILS # (AUTO) 9.8 X10'3 (1.8-7.7); NEUTROPHILS % (AUTO) 67.3 % (42-75); PLATELET COUNT 763 X10'3 (140-440); RED BLOOD COUNT 2.55 X10'6 (4.20-5.60); RED CELL DISTRIBUTION WIDTH 15.7 % (11.5-14.5); WHITE BLOOD COUNT 14.6 X10'3 (4.5-11.0)
--- NOTE | 2018-07-19 06:51 | NUR ---
Problems reprioritized. Patient report given, questions answered & plan of care reviewed with Yolette CEJA. RN observed wounds and provena
[2018-07-19 07:00] LABS: ALBUMIN 1.8 G/DL (3.4-5.0); ANION GAP 7 (8-16); BLOOD UREA NITROGEN 7 MG/DL (7-18); BUN/CREATININE RATIO 8.4 (6.6-38.0); CALCIUM 7.8 MG/DL (8.5-10.1); CHLORIDE 106 MMOL/L (99-107); CREATININE 0.83 MG/DL (0.40-0.90); GLUCOSE 209 MG/DL (70-104); POTASSIUM 3.7 MMOL/L (3.5-5.1); SODIUM 141 MMOL/L (135-145); TOTAL CARBON DIOXIDE 27.8 MMOL/L (24-32); eGFR 69 ML/MIN
[2018-07-19 08:00] VITALS: BP 131/77
[2018-07-19] MEDS: normal saline 1000ml 1,000 ML IV SCH ×2 (08:00→19:16)
[2018-07-19] MEDS: pregabalin 25mg capsule PO SCH ×3 (08:19→21:14)
[2018-07-19] MEDS: lactobacillus rhamnosus 10,000 MMU CELLS/CAPSULE PO SCH ×2 (08:20→19:25)
[2018-07-19] MEDS: amLODIPine 5mg tablet PO SCH (08:20)
[2018-07-19] MEDS: clopidogrel 75mg tablet PO SCH (08:20)
[2018-07-19] MEDS: apixaban 5mg tablet PO SCH ×2 (08:20→19:25)
[2018-07-19] MEDS: lisinopril 5mg tablet PO SCH ×2 (08:20→19:25)
[2018-07-19] MEDS: atorvastatin 20mg tablet PO SCH (08:20)
[2018-07-19] MEDS: insulin Lispro (HumaLOG) vial - multi-dose SQ SCH ×3 (09:55→19:24)
[2018-07-19] MEDS: albuterol 2.5 MG/3 ML nebule NEB SCH ×3 (11:56→20:00)
[2018-07-19 12:00] VITALS: BP 117/57
--- NOTE | 2018-07-19 14:47 | NUR ---
Reassessment: Patient's current diet order is heart healthy no concentrated sweets with documented PO intake averaging 25%. Pt seen at bedside states she believes her appetite is improving and attributes the low documented intake to the meals being larger than what she normally consumes, however states she would like to continue with previously mentioned meal additions, mentioned below. Pt expressed no other food preferences at this time. Reinforced the importance of protein, pt seemed to have an understanding. Pt denies any difficulty chewing or swallowing or any nutrition questions at this time. LBM 07/18. Will continue to follow. Reassessment:Pt advanced to non concentrated sweets and Heart Healthy diet from NPO 07/14. Pt PO intake was 25-50% not currently meeting nutrition needs. Pt reports poor appetite due to pain. Discussed food options with pt and SO. Pt prefers hardboiled eggs for breakfast, cottage cheese and yogurt with fruit for lunch and a plate of ham and cheese for dinner, discussed with dietary. Pt will not drink ensure. LBM 07/09. Will continue to monitor. Rec: 1. Continue with non concentrated sweet diet and heart healthy diet 2. monitor for ONS post-op 3. MVM for wounds once PO prior to d/c Addendum: 07/19/18 at [address] Amended: Links added.
[2018-07-19 18:00] VITALS: BP 107/70
--- NOTE | 2018-07-19 18:30 | NUR ---
Patient in room VIK 354. I have received report from Yolette CEJA and had the opportunity to ask questions and assume patient care.
[2018-07-19] MEDS: nicotine 21mg patch - 24 hr TD SCH (21:14)
[2018-07-19 23:30] VITALS: BP 116/60
--- NOTE | 2018-07-19 23:42 | NUR ---
Provena removed post op day 7 per MD order. Patient tolerated well.
[2018-07-20] MEDS: morphine 4 MG/ML inj SYRINge IV PRN ×8 (00:23→22:19)
[2018-07-20] MEDS: normal saline 1000ml 1,000 ML IV SCH ×2 (00:24→13:50)
[2018-07-20] MEDS: piperacillin/tazo 3.375gm/50ml 50 ML IV SCH ×4 (01:39→19:20)
[2018-07-20 04:57] LABS: BASOPHILS % (AUTO) 0.2 % (0-1); EOSINOPHILS # (AUTO) 0.7 X10'3 (0-0.9); EOSINOPHILS % (AUTO) 4.1 % (0-6); HEMATOCRIT 23.6 % (35.0-45.0); HEMOGLOBIN 7.4 g/dl (12.0-16.0); LYMPHOCYTES # (AUTO) 3.3 X10'3 (1.1-4.8); LYMPHOCYTES % (AUTO) 20.1 % (21-51); MEAN CORPUSCULAR HEMOGLOBIN 29.2 PG (27.0-31.0); MEAN CORPUSCULAR HGB CONC 31.3 % (33.0-36.5); MEAN CORPUSCULAR VOLUME 93.3 FL (78-98); MEAN PLATELET VOLUME 7.4 FL (7.4-10.4); MONOCYTES # (AUTO) 1.5 X10'3 (0-0.9); MONOCYTES % (AUTO) 9.1 % (2-12); NEUTROPHILS # (AUTO) 10.9 X10'3 (1.8-7.7); NEUTROPHILS % (AUTO) 66.5 % (42-75); PLATELET COUNT 802 X10'3 (140-440); RED BLOOD COUNT 2.53 X10'6 (4.20-5.60); WHITE BLOOD COUNT 16.4 X10'3 (4.5-11.0)
[2018-07-20 05:28] LABS: ALBUMIN 1.8 G/DL (3.4-5.0); ANION GAP 9 (8-16); BLOOD UREA NITROGEN 8 MG/DL (7-18); BUN/CREATININE RATIO 9.9 (6.6-38.0); CALCIUM 8.1 MG/DL (8.5-10.1); CHLORIDE 104 MMOL/L (99-107); CREATININE 0.81 MG/DL (0.40-0.90); GLUCOSE 174 MG/DL (70-104); SODIUM 140 MMOL/L (135-145); TOTAL CARBON DIOXIDE 27.3 MMOL/L (24-32); eGFR 71 ML/MIN
--- NOTE | 2018-07-20 06:32 | NUR ---
Patient in room VIK 354. I have received report from BRENNA Sutton and had the opportunity to ask questions and assume patient care.
--- NOTE | 2018-07-20 06:38 | NUR ---
Problems reprioritized. Patient report given, questions answered & plan of care reviewed with Brianna CEJA.
[2018-07-20 07:00] VITALS: BP 105/55
[2018-07-20] MEDS: insulin Lispro (HumaLOG) vial - multi-dose SQ SCH ×3 (08:19→21:10)
[2018-07-20] MEDS: clopidogrel 75mg tablet PO SCH (08:22)
[2018-07-20] MEDS: atorvastatin 20mg tablet PO SCH (08:22)
[2018-07-20] MEDS: apixaban 5mg tablet PO SCH ×2 (08:22→19:19)
[2018-07-20] MEDS: pregabalin 25mg capsule PO SCH ×3 (08:22→21:04)
[2018-07-20] MEDS: lactobacillus rhamnosus 10,000 MMU CELLS/CAPSULE PO SCH ×2 (08:22→19:20)
[2018-07-20] MEDS: amLODIPine 5mg tablet PO SCH (08:22)
[2018-07-20] MEDS: lisinopril 5mg tablet PO SCH ×2 (08:22→19:34)
[2018-07-20 12:00] VITALS: BP 123/63
--- NOTE | 2018-07-20 18:42 | NUR ---
Problems reprioritized. Patient report given, questions answered & plan of care reviewed with BRENNA Contreras.
[2018-07-20 20:00] VITALS: BP 117/58
[2018-07-20] MEDS: nicotine 21mg patch - 24 hr TD SCH (21:05)
[2018-07-21] VITALS: BP 132/66
[2018-07-21] MEDS: piperacillin/tazo 3.375gm/50ml 50 ML IV SCH ×4 (01:41→19:45)
[2018-07-21] MEDS: morphine 4 MG/ML inj SYRINge IV PRN ×7 (01:46→22:56)
[2018-07-21] MEDS: LORazepam 2 mg/ml vial IV PRN (01:46)
[2018-07-21] MEDS: normal saline 1000ml 1,000 ML IV SCH (04:37)
--- NOTE | 2018-07-21 06:30 | NUR ---
Patient in room VIK 354. I have received report from BRENNA Contreras and had the opportunity to ask questions and assume patient care.
--- NOTE | 2018-07-21 06:40 | NUR ---
Problems reprioritized. Patient report given, questions answered & plan of care reviewed with BRENNA Horn.
[2018-07-21 07:00] VITALS: BP 132/68
[2018-07-21] MEDS: albuterol 2.5 MG/3 ML nebule NEB SCH ×2 (08:00→19:55)
[2018-07-21] MEDS: clopidogrel 75mg tablet PO SCH (08:18)
[2018-07-21] MEDS: lactobacillus rhamnosus 10,000 MMU CELLS/CAPSULE PO SCH ×2 (08:19→19:45)
[2018-07-21] MEDS: pregabalin 25mg capsule PO SCH ×3 (08:19→20:23)
[2018-07-21] MEDS: amLODIPine 5mg tablet PO SCH (08:19)
[2018-07-21] MEDS: apixaban 5mg tablet PO SCH ×2 (08:19→19:45)
[2018-07-21] MEDS: atorvastatin 20mg tablet PO SCH (08:19)
[2018-07-21] MEDS: lisinopril 5mg tablet PO SCH ×2 (08:19→19:45)
[2018-07-21] MEDS: insulin Lispro (HumaLOG) vial - multi-dose SQ SCH ×2 (09:52→13:53)
[2018-07-21 12:00] VITALS: BP 113/58
[2018-07-21 14:20] LABS: BASOPHILS % (AUTO) 0.2 % (0-1); EOSINOPHILS # (AUTO) 0.7 X10'3 (0-0.9); EOSINOPHILS % (AUTO) 3.8 % (0-6); HEMOGLOBIN 7.5 g/dl (12.0-16.0); LYMPHOCYTES # (AUTO) 2.7 X10'3 (1.1-4.8); LYMPHOCYTES % (AUTO) 15.5 % (21-51); MEAN CORPUSCULAR HGB CONC 31.2 % (33.0-36.5); MEAN CORPUSCULAR VOLUME 92.9 FL (78-98); MEAN PLATELET VOLUME 7.2 FL (7.4-10.4); MONOCYTES # (AUTO) 1.6 X10'3 (0-0.9); MONOCYTES % (AUTO) 9.1 % (2-12); NEUTROPHILS # (AUTO) 12.2 X10'3 (1.8-7.7); NEUTROPHILS % (AUTO) 71.4 % (42-75); PLATELET COUNT 965 X10'3 (140-440); RED BLOOD COUNT 2.59 X10'6 (4.20-5.60); RED CELL DISTRIBUTION WIDTH 15.8 % (11.5-14.5); WHITE BLOOD COUNT 17.1 X10'3 (4.5-11.0)
[2018-07-21 14:49] LABS: ALBUMIN 1.8 G/DL (3.4-5.0); ANION GAP 11 (8-16); BLOOD UREA NITROGEN 8 MG/DL (7-18); BUN/CREATININE RATIO 10.1 (6.6-38.0); CALCIUM 8.5 MG/DL (8.5-10.1); CHLORIDE 104 MMOL/L (99-107); CREATININE 0.79 MG/DL (0.40-0.90); GLUCOSE 148 MG/DL (70-104); POTASSIUM 3.7 MMOL/L (3.5-5.1); SODIUM 141 MMOL/L (135-145); TOTAL CARBON DIOXIDE 25.7 MMOL/L (24-32); eGFR 74 ML/MIN
--- NOTE | 2018-07-21 15:16 | NUR ---
SS received p/c from pt's daughter, per discussion, daughter and pt's spouse will inform pt that pt will need to go to [facility] to complete IV treatment protocol and then she can come home. CM informed.
--- NOTE | 2018-07-21 18:15 | NUR ---
Problems reprioritized. Patient report given, questions answered & plan of care reviewed with BRENNA Contreras.
[2018-07-21 19:45] VITALS: BP 135/60
[2018-07-21 20:00] VITALS: BP 111/56
[2018-07-21] MEDS: nicotine 21mg patch - 24 hr TD SCH (20:23)
[2018-07-22] VITALS: BP 121/61
[2018-07-22] MEDS: piperacillin/tazo 3.375gm/50ml 50 ML IV SCH ×2 (01:40→08:01)
[2018-07-22] MEDS: morphine 4 MG/ML inj SYRINge IV PRN ×3 (02:19→08:05)
[2018-07-22 05:53] LABS: BASOPHILS % (AUTO) 0.3 % (0-1); EOSINOPHILS # (AUTO) 0.7 X10'3 (0-0.9); EOSINOPHILS % (AUTO) 4.2 % (0-6); HEMATOCRIT 23.5 % (35.0-45.0); HEMOGLOBIN 7.4 g/dl (12.0-16.0); LYMPHOCYTES # (AUTO) 2.9 X10'3 (1.1-4.8); LYMPHOCYTES % (AUTO) 18.7 % (21-51); MEAN CORPUSCULAR HEMOGLOBIN 28.9 PG (27.0-31.0); MEAN CORPUSCULAR HGB CONC 31.2 % (33.0-36.5); MEAN CORPUSCULAR VOLUME 92.7 FL (78-98); MEAN PLATELET VOLUME 7.4 FL (7.4-10.4); MONOCYTES # (AUTO) 1.3 X10'3 (0-0.9); MONOCYTES % (AUTO) 8.6 % (2-12); NEUTROPHILS # (AUTO) 10.6 X10'3 (1.8-7.7); NEUTROPHILS % (AUTO) 68.2 % (42-75); PLATELET COUNT 959 X10'3 (140-440); RED BLOOD COUNT 2.54 X10'6 (4.20-5.60); RED CELL DISTRIBUTION WIDTH 15.7 % (11.5-14.5); WHITE BLOOD COUNT 15.5 X10'3 (4.5-11.0)
[2018-07-22 05:59] LABS: ALBUMIN 1.7 G/DL (3.4-5.0); ANION GAP 9 (8-16); BLOOD UREA NITROGEN 11 MG/DL (7-18); BUN/CREATININE RATIO 13.4 (6.6-38.0); CALCIUM 8.5 MG/DL (8.5-10.1); CHLORIDE 103 MMOL/L (99-107); CREATININE 0.82 MG/DL (0.40-0.90); GLUCOSE 205 MG/DL (70-104); SODIUM 140 MMOL/L (135-145); TOTAL CARBON DIOXIDE 28.2 MMOL/L (24-32); eGFR 70 ML/MIN
--- NOTE | 2018-07-22 06:20 | NUR ---
Patient in room VIK 354. I have received report from Diane Chaves RN and had the opportunity to ask questions and assume patient care.
--- NOTE | 2018-07-22 06:47 | NUR ---
Problems reprioritized. Patient report given, questions answered & plan of care reviewed with BRENNA Harris.
[2018-07-22 07:00] VITALS: BP 113/60
[2018-07-22] MEDS: albuterol 2.5 MG/3 ML nebule NEB SCH ×2 (07:35→20:13)
[2018-07-22 07:51] LABS: ANISOCYTOSIS 2+; LARGE PLATELETS FEW; PLATELET ESTIMATE INCREASED
[2018-07-22 07:52] LABS: POLYCHROMASIA 1+
[2018-07-22 07:56] LABS: MICROCYTOSIS 1+
[2018-07-22] MEDS: lactobacillus rhamnosus 10,000 MMU CELLS/CAPSULE PO SCH ×2 (08:01→19:51)
[2018-07-22] MEDS: apixaban 5mg tablet PO SCH ×2 (08:01→19:51)
[2018-07-22] MEDS: amLODIPine 5mg tablet PO SCH (08:02)
[2018-07-22] MEDS: atorvastatin 20mg tablet PO SCH (08:02)
[2018-07-22] MEDS: pregabalin 25mg capsule PO SCH ×3 (08:02→21:42)
[2018-07-22] MEDS: lisinopril 5mg tablet PO SCH ×2 (08:03→19:51)
[2018-07-22] MEDS: clopidogrel 75mg tablet PO SCH (08:04)
[2018-07-22] MEDS: insulin Lispro (HumaLOG) vial - multi-dose SQ SCH ×3 (09:43→19:50)
[2018-07-22] MEDS: HYDROmorphone 2mg tablet PO PRN ×3 (10:53→19:52)
[2018-07-22 11:00] VITALS: BP 117/64
--- NOTE | 2018-07-22 13:44 | NUR ---
SS had t/c w/pt's daughter who reports that pt is telling family members that she's being discharge home today, SS will f/u w/CM re d/c date & time. Daughter request that if pt is d/c-ing that tomorrow or Thursday would work. Daughter also reported that pt had worked well w/Home Health services from [place] in the past.
--- NOTE | 2018-07-22 15:12 | NUR ---
Reassessment: Documented PO intake recently improved with average 50-75% likely closely meeting nutrient needs. Per MD notes pt clinically stable. Will continue to follow and honor food preferences to optimize PO intake. Previous note 07/15: Reassessment:Pt advanced to non concentrated sweets and Heart Healthy diet from NPO 07/14. Pt PO intake was 25-50% not currently meeting nutrition needs. Pt reports poor appetite due to pain. Discussed food options with pt and SO. Pt prefers hardboiled eggs for breakfast, cottage cheese and yogurt with fruit for lunch and a plate of ham and cheese for dinner, discussed with dietary. Pt will not drink ensure. LBM 07/09. Will continue to monitor. Rec: 1. Continue with non concentrated sweet diet and heart healthy diet 2. monitor for ONS 3. MVM for wounds once PO prior to d/c Addendum: 07/22/18 at 15[address] Amended: Links added.
[2018-07-22 18:00] VITALS: BP 123/59
[2018-07-22] MEDS: amox tr/potassium clavulanate 875/125mg TAB PO SCH (18:28)
--- NOTE | 2018-07-22 18:49 | NUR ---
Problems reprioritized. Patient report given, questions answered & plan of care reviewed with BRENNA Sutton.
--- NOTE | 2018-07-22 19:00 | NUR ---
Patient in room VIK 354. I have received report from Yazmin CEJA and had the opportunity to ask questions and assume patient care.
[2018-07-22] MEDS: ciprofloxacin 250mg tablet PO SCH (19:51)
[2018-07-22] MEDS: nicotine 21mg patch - 24 hr TD SCH (21:42)
[2018-07-23] VITALS: BP 115/50
[2018-07-23] MEDS: HYDROmorphone 2mg tablet PO PRN ×5 (00:24→21:30)
--- NOTE | 2018-07-23 04:57 | NUR ---
Offered patient MOM to have BM, pt refused and stated she would eat some applesauce as that usually works for her.
--- NOTE | 2018-07-23 06:29 | NUR ---
Problems reprioritized. Patient report given, questions answered & plan of care reviewed with Dorota CEJA.
[2018-07-23 06:53] LABS: BASOPHILS % (AUTO) 0.2 % (0-1); EOSINOPHILS # (AUTO) 0.6 X10'3 (0-0.9); EOSINOPHILS % (AUTO) 4.4 % (0-6); HEMATOCRIT 24.8 % (35.0-45.0); HEMOGLOBIN 7.7 g/dl (12.0-16.0); LYMPHOCYTES # (AUTO) 2.4 X10'3 (1.1-4.8); LYMPHOCYTES % (AUTO) 16.6 % (21-51); MEAN CORPUSCULAR HEMOGLOBIN 28.6 PG (27.0-31.0); MEAN CORPUSCULAR VOLUME 92.2 FL (78-98); MEAN PLATELET VOLUME 7.3 FL (7.4-10.4); MONOCYTES # (AUTO) 1.2 X10'3 (0-0.9); MONOCYTES % (AUTO) 8.4 % (2-12); NEUTROPHILS # (AUTO) 10.1 X10'3 (1.8-7.7); NEUTROPHILS % (AUTO) 70.4 % (42-75); RED BLOOD COUNT 2.69 X10'6 (4.20-5.60); RED CELL DISTRIBUTION WIDTH 15.5 % (11.5-14.5); WHITE BLOOD COUNT 14.3 X10'3 (4.5-11.0)
[2018-07-23 07:14] LABS: PLATELET COUNT 1038 X10'3 (140-440)
--- NOTE | 2018-07-23 07:16 | NUR ---
Critical platelet 1038, Dr Felton paged with results
[2018-07-23] MEDS: albuterol 2.5 MG/3 ML nebule NEB SCH ×2 (07:42→20:00)
[2018-07-23 08:00] VITALS: BP 115/55
[2018-07-23 08:41] LABS: ALBUMIN 1.8 G/DL (3.4-5.0); BLOOD UREA NITROGEN 13 MG/DL (7-18); BUN/CREATININE RATIO 14.6 (6.6-38.0); CALCIUM 8.7 MG/DL (8.5-10.1); CREATININE 0.89 MG/DL (0.40-0.90); GLUCOSE 246 MG/DL (70-104); eGFR 64 ML/MIN
[2018-07-23 08:49] LABS: ANION GAP 9 (8-16); CHLORIDE 102 MMOL/L (99-107); POTASSIUM 4.2 MMOL/L (3.5-5.1); SODIUM 138 MMOL/L (135-145); TOTAL CARBON DIOXIDE 26.7 MMOL/L (24-32)
[2018-07-23] MEDS: atorvastatin 20mg tablet PO SCH (08:58)
[2018-07-23] MEDS: clopidogrel 75mg tablet PO SCH (08:58)
[2018-07-23] MEDS: amLODIPine 5mg tablet PO SCH (08:59)
[2018-07-23] MEDS: pregabalin 25mg capsule PO SCH ×3 (08:59→21:29)
[2018-07-23] MEDS: apixaban 5mg tablet PO SCH ×2 (09:00→19:27)
[2018-07-23] MEDS: lactobacillus rhamnosus 10,000 MMU CELLS/CAPSULE PO SCH ×2 (09:00→19:27)
[2018-07-23] MEDS: lisinopril 5mg tablet PO SCH ×2 (09:01→19:27)
[2018-07-23] MEDS: ciprofloxacin 250mg tablet PO SCH ×2 (09:01→19:27)
[2018-07-23] MEDS: amox tr/potassium clavulanate 875/125mg TAB PO SCH ×2 (09:01→17:04)
[2018-07-23] MEDS: insulin Lispro (HumaLOG) vial - multi-dose SQ SCH ×3 (09:10→19:26)
[2018-07-23 11:00] VITALS: BP 112/48
[2018-07-23 18:00] VITALS: BP 122/57
--- NOTE | 2018-07-23 18:30 | NUR ---
Patient in room VIK 354. I have received report from Dorota CEJA and had the opportunity to ask questions and assume patient care.
[2018-07-23] MEDS: nicotine 21mg patch - 24 hr TD SCH (21:29)
[2018-07-24] VITALS: BP 105/50
[2018-07-24] MEDS: HYDROmorphone 2mg tablet PO PRN ×5 (01:54→19:27)
--- NOTE | 2018-07-24 06:28 | NUR ---
Problems reprioritized. Patient report given, questions answered & plan of care reviewed with Dorota CEJA.
[2018-07-24 08:00] VITALS: BP 98/50
[2018-07-24] MEDS: albuterol 2.5 MG/3 ML nebule NEB SCH ×2 (08:00→19:46)
[2018-07-24] MEDS: lisinopril 5mg tablet PO SCH ×2 (08:00→19:26)
--- NOTE | 2018-07-24 08:36 | NUR ---
pt did not eat much and blood sugar this am is 89. Will hold giving am dose of humalog and recheck for lunch. Addendum: 07/24/18 at 1125 by Dorota Osorio RN, RN wrong patient, disregard
[2018-07-24] MEDS: lactobacillus rhamnosus 10,000 MMU CELLS/CAPSULE PO SCH ×3 (08:47→20:00)
[2018-07-24] MEDS: clopidogrel 75mg tablet PO SCH (08:47)
[2018-07-24] MEDS: ciprofloxacin 250mg tablet PO SCH ×2 (08:47→19:31)
[2018-07-24] MEDS: amox tr/potassium clavulanate 875/125mg TAB PO SCH ×2 (08:48→16:46)
[2018-07-24] MEDS: apixaban 5mg tablet PO SCH ×2 (08:48→19:29)
[2018-07-24] MEDS: atorvastatin 20mg tablet PO SCH (08:48)
[2018-07-24] MEDS: pregabalin 25mg capsule PO SCH ×3 (08:51→21:44)
[2018-07-24 09:00] VITALS: BP_SYST 130; BP_SYST 138; BP_DIAS 59; BP_DIAS 72
[2018-07-24] MEDS: insulin Lispro (HumaLOG) vial - multi-dose SQ SCH ×3 (09:07→19:02)
[2018-07-24 10:06] LABS: BASOPHILS % (AUTO) 0.3 % (0-1); EOSINOPHILS # (AUTO) 0.5 X10'3 (0-0.9); EOSINOPHILS % (AUTO) 3.6 % (0-6); HEMOGLOBIN 8.4 g/dl (12.0-16.0); LYMPHOCYTES # (AUTO) 2.4 X10'3 (1.1-4.8); LYMPHOCYTES % (AUTO) 16.3 % (21-51); MEAN CORPUSCULAR HEMOGLOBIN 29.8 PG (27.0-31.0); MEAN CORPUSCULAR HGB CONC 32.1 % (33.0-36.5); MEAN CORPUSCULAR VOLUME 92.8 FL (78-98); MEAN PLATELET VOLUME 7.5 FL (7.4-10.4); MONOCYTES # (AUTO) 1.1 X10'3 (0-0.9); MONOCYTES % (AUTO) 7.6 % (2-12); NEUTROPHILS # (AUTO) 10.8 X10'3 (1.8-7.7); NEUTROPHILS % (AUTO) 72.2 % (42-75); RED CELL DISTRIBUTION WIDTH 14.9 % (11.5-14.5); WHITE BLOOD COUNT 14.8 X10'3 (4.5-11.0)
[2018-07-24 10:16] LABS: ANION GAP 10 (8-16); BLOOD UREA NITROGEN 14 MG/DL (7-18); BUN/CREATININE RATIO 16.3 (6.6-38.0); CALCIUM 9.1 MG/DL (8.5-10.1); CHLORIDE 100 MMOL/L (99-107); CREATININE 0.86 MG/DL (0.40-0.90); GLUCOSE 289 MG/DL (70-104); POTASSIUM 4.5 MMOL/L (3.5-5.1); SODIUM 137 MMOL/L (135-145); TOTAL CARBON DIOXIDE 26.6 MMOL/L (24-32); eGFR 67 ML/MIN
[2018-07-24 11:13] LABS: PLATELET COUNT 1316 X10'3 (140-440)
--- NOTE | 2018-07-24 11:25 | NUR ---
Platelets 1316...Dr Phillips notified via page.
--- NOTE | 2018-07-24 14:37 | NUR ---
Reassessment: Documented PO improved w/ avg 100% meeting nutrient needs. RD d/w RN to add carb controlled diet to NCS/HH given T2DM as well as consideration of Lantus per approval since not receiving long-acting DM meds on hyperglycemic protocol w/ GLU 289. Per RN; agrees and starting full hyperglycemic protocol w/ carb controlled diet today. LBM 07/23. No additional concerns at this time. Rec: 1. Continue with non concentrated sweet/carb controlled/heart healthy diet 2. honor pt food preferences 3. MVM for wounds Addendum: 07/24/18 at [address] Amended: Links added.
[2018-07-24 18:15] VITALS: BP 105/50
--- NOTE | 2018-07-24 18:15 | NUR ---
Patient in room VIK 354. I have received report from Dorota CEJA and had the opportunity to ask questions and assume patient care.
--- NOTE | 2018-07-24 19:02 | NUR ---
Problems reprioritized. Patient report given, questions answered & plan of care reviewed with Vanna CEJA.
[2018-07-24] MEDS: nicotine 21mg patch - 24 hr TD SCH (21:44)
[2018-07-24] MEDS: insulin glargine (Lantus) pen - multi-dose SQ SCH (21:45)
[2018-07-25] VITALS (7 sets, daily range): BP systolic 102–146; BP diastolic 48–72
[2018-07-25] MEDS: HYDROmorphone 2mg tablet PO PRN ×5 (04:31→22:37)
--- NOTE | 2018-07-25 06:22 | NUR ---
Problems reprioritized. Patient report given, questions answered & plan of care reviewed with Dorota CEJA.
[2018-07-25] MEDS: albuterol 2.5 MG/3 ML nebule NEB SCH ×2 (08:00→20:00)
[2018-07-25] MEDS: lactobacillus rhamnosus 10,000 MMU CELLS/CAPSULE PO SCH ×4 (08:00→20:00)
[2018-07-25] MEDS: amox tr/potassium clavulanate 875/125mg TAB PO SCH ×2 (09:09→17:46)
[2018-07-25] MEDS: lisinopril 5mg tablet PO SCH ×2 (09:10→19:52)
[2018-07-25] MEDS: ciprofloxacin 250mg tablet PO SCH ×2 (09:10→19:52)
[2018-07-25] MEDS: pregabalin 25mg capsule PO SCH ×3 (09:11→22:14)
[2018-07-25] MEDS: apixaban 5mg tablet PO SCH ×2 (09:11→19:52)
[2018-07-25] MEDS: atorvastatin 20mg tablet PO SCH (09:11)
[2018-07-25] MEDS: clopidogrel 75mg tablet PO SCH (09:12)
[2018-07-25] MEDS: insulin Lispro (HumaLOG) vial - multi-dose SQ SCH ×3 (09:18→19:46)
--- NOTE | 2018-07-25 19:00 | NUR ---
Patient in room VIK 354. I have received report from Dorota CEJA and had the opportunity to ask questions and assume patient care.
--- NOTE | 2018-07-25 19:19 | NUR ---
Problems reprioritized. Patient report given, questions answered & plan of care reviewed with GOLDIE CEJA.
[2018-07-25] MEDS: insulin glargine (Lantus) pen - multi-dose SQ SCH (21:00)
[2018-07-25] MEDS: nicotine 21mg patch - 24 hr TD SCH (22:15)
[2018-07-26] MEDS: HYDROmorphone 2mg tablet PO PRN ×5 (03:23→22:06)
--- NOTE | 2018-07-26 06:46 | NUR ---
Patient in room VIK 354. I have received report from Olivia CEJA and had the opportunity to ask questions and assume patient care.
--- NOTE | 2018-07-26 06:53 | NUR ---
Problems reprioritized. Patient report given, questions answered & plan of care reviewed with Jaqui CEJA.
[2018-07-26] MEDS: apixaban 5mg tablet PO SCH ×2 (07:31→22:04)
[2018-07-26] MEDS: ciprofloxacin 250mg tablet PO SCH ×2 (07:31→22:05)
[2018-07-26] MEDS: lisinopril 5mg tablet PO SCH ×2 (07:31→22:05)
[2018-07-26] MEDS: amox tr/potassium clavulanate 875/125mg TAB PO SCH ×2 (07:31→16:45)
[2018-07-26] MEDS: clopidogrel 75mg tablet PO SCH (07:31)
[2018-07-26] MEDS: lactobacillus rhamnosus 10,000 MMU CELLS/CAPSULE PO SCH ×3 (07:31→22:04)
[2018-07-26] MEDS: pregabalin 25mg capsule PO SCH ×3 (07:31→21:00)
[2018-07-26] MEDS: atorvastatin 20mg tablet PO SCH (07:31)
[2018-07-26 07:49] VITALS: BP 105/55
[2018-07-26 08:48] LABS: ANION GAP 11 (8-16); BLOOD UREA NITROGEN 15 MG/DL (7-18); BUN/CREATININE RATIO 18.3 (6.6-38.0); CHLORIDE 99 MMOL/L (99-107); CREATININE 0.82 MG/DL (0.40-0.90); GLUCOSE 221 MG/DL (70-104); SODIUM 136 MMOL/L (135-145); TOTAL CARBON DIOXIDE 26.2 MMOL/L (24-32); eGFR 70 ML/MIN
[2018-07-26] MEDS: insulin Lispro (HumaLOG) vial - multi-dose SQ SCH ×3 (09:38→20:05)
[2018-07-26 09:45] LABS: BASOPHILS % (AUTO) 0.3 % (0-1); EOSINOPHILS # (AUTO) 0.6 X10'3 (0-0.9); EOSINOPHILS % (AUTO) 4.9 % (0-6); LYMPHOCYTES # (AUTO) 2.2 X10'3 (1.1-4.8); LYMPHOCYTES % (AUTO) 18.6 % (21-51); MEAN CORPUSCULAR HEMOGLOBIN 29.5 PG (27.0-31.0); MEAN CORPUSCULAR HGB CONC 32.3 % (33.0-36.5); MEAN CORPUSCULAR VOLUME 91.1 FL (78-98); MEAN PLATELET VOLUME 7.3 FL (7.4-10.4); MONOCYTES # (AUTO) 1.1 X10'3 (0-0.9); MONOCYTES % (AUTO) 9.2 % (2-12); NEUTROPHILS # (AUTO) 8.1 X10'3 (1.8-7.7); RED BLOOD COUNT 3.07 X10'6 (4.20-5.60); RED CELL DISTRIBUTION WIDTH 14.4 % (11.5-14.5)
[2018-07-26 09:46] LABS: PLATELET COUNT 1047 X10'3 (140-440)
[2018-07-26 11:14] VITALS: BP 98/57
[2018-07-26 12:29] VITALS: BP 109/53
--- NOTE | 2018-07-26 13:33 | NUR ---
Dr. Wahl aware of critical platelets of 1047. No new orders at this time.
--- NOTE | 2018-07-26 18:34 | NUR ---
Problems reprioritized. Patient report given, questions answered & plan of care reviewed with Kamilla CEJA.
[2018-07-26] MEDS: albuterol 2.5 MG/3 ML nebule NEB SCH ×2 (18:42→20:00)
--- NOTE | 2018-07-26 18:47 | NUR ---
Patient in room VIK 354. I have received report from FREDDIE CEJA and had the opportunity to ask questions and assume patient care. Addendum: 07/26/18 at 1848 by Kamilla Perrin RN Amended: Links added.
[2018-07-26 19:30] VITALS: BP 110/59
--- NOTE | 2018-07-26 19:35 | NUR ---
resting eyes closed awoke briefly with insulin coverage.
--- NOTE | 2018-07-26 20:30 | NUR ---
pt resting not wanting to wake up for meds at this time.
--- NOTE | 2018-07-26 21:50 | NUR ---
pt awoke for meds as she was due for po diladid dose and given a snack after blood sugar done. meds given and snack as requested.
[2018-07-26] MEDS: nicotine 21mg patch - 24 hr TD SCH (22:13)
[2018-07-26] MEDS: insulin glargine (Lantus) pen - multi-dose SQ SCH (22:17)
[2018-07-27] VITALS: BP 108/54
--- NOTE | 2018-07-27 00:12 | NUR ---
resting eyes closed without changes.
--- NOTE | 2018-07-27 02:10 | NUR ---
pt resting eyes closed without changes at this time.
--- NOTE | 2018-07-27 03:40 | NUR ---
resting eyes closed and no s&s of distress at this time.
--- NOTE | 2018-07-27 04:35 | NUR ---
pt awoke requesting cheese and diladid for pain at this time.
[2018-07-27] MEDS: HYDROmorphone 2mg tablet PO PRN ×4 (04:37→21:59)
--- NOTE | 2018-07-27 04:47 | NUR ---
room cleaned. pt had collected a bunch of containers etc in the room.
--- NOTE | 2018-07-27 05:25 | NUR ---
resting eyes closed without changes at this time.
--- NOTE | 2018-07-27 06:12 | NUR ---
Problems reprioritized. Patient report given, questions answered & plan of care reviewed with Tonia Noble. Addendum: 07/27/18 at 0612 by Kamilla Perrin RN Amended: Links added.
--- NOTE | 2018-07-27 06:41 | NUR ---
Patient in room VIK 354. I have received report from Kamilla CEJA and had the opportunity to ask questions and assume patient care.
[2018-07-27 07:00] VITALS: BP 107/62
[2018-07-27 08:07] LABS: ANION GAP 8 (8-16); BLOOD UREA NITROGEN 18 MG/DL (7-18); CALCIUM 8.7 MG/DL (8.5-10.1); CHLORIDE 100 MMOL/L (99-107); GLUCOSE 194 MG/DL (70-104); POTASSIUM 4.8 MMOL/L (3.5-5.1); SODIUM 135 MMOL/L (135-145); TOTAL CARBON DIOXIDE 26.6 MMOL/L (24-32); eGFR 63 ML/MIN
[2018-07-27 08:15] LABS: BASOPHILS % (AUTO) 0.2 % (0-1); EOSINOPHILS # (AUTO) 0.6 X10'3 (0-0.9); EOSINOPHILS % (AUTO) 4.6 % (0-6); HEMATOCRIT 26.1 % (35.0-45.0); HEMOGLOBIN 8.5 g/dl (12.0-16.0); LYMPHOCYTES # (AUTO) 2.3 X10'3 (1.1-4.8); LYMPHOCYTES % (AUTO) 17.4 % (21-51); MEAN CORPUSCULAR HEMOGLOBIN 29.9 PG (27.0-31.0); MEAN CORPUSCULAR HGB CONC 32.7 % (33.0-36.5); MEAN CORPUSCULAR VOLUME 91.2 FL (78-98); MEAN PLATELET VOLUME 7.3 FL (7.4-10.4); MONOCYTES # (AUTO) 1.4 X10'3 (0-0.9); MONOCYTES % (AUTO) 10.5 % (2-12); NEUTROPHILS # (AUTO) 8.8 X10'3 (1.8-7.7); NEUTROPHILS % (AUTO) 67.3 % (42-75); RED BLOOD COUNT 2.86 X10'6 (4.20-5.60); RED CELL DISTRIBUTION WIDTH 14.4 % (11.5-14.5); WHITE BLOOD COUNT 13.1 X10'3 (4.5-11.0)
[2018-07-27 08:18] LABS: PLATELET COUNT 1019 X10'3 (140-440)
[2018-07-27] MEDS: lisinopril 5mg tablet PO SCH ×2 (08:46→20:00)
[2018-07-27] MEDS: pregabalin 25mg capsule PO SCH ×3 (08:46→20:30)
[2018-07-27] MEDS: lactobacillus rhamnosus 10,000 MMU CELLS/CAPSULE PO SCH ×2 (08:46→20:31)
[2018-07-27] MEDS: apixaban 5mg tablet PO SCH ×2 (08:46→20:31)
[2018-07-27] MEDS: amox tr/potassium clavulanate 875/125mg TAB PO SCH ×2 (08:46→17:48)
[2018-07-27] MEDS: ciprofloxacin 250mg tablet PO SCH ×2 (08:46→20:31)
[2018-07-27] MEDS: atorvastatin 20mg tablet PO SCH (08:47)
[2018-07-27] MEDS: clopidogrel 75mg tablet PO SCH (08:47)
[2018-07-27] MEDS: insulin Lispro (HumaLOG) vial - multi-dose SQ SCH ×3 (08:51→19:07)
[2018-07-27 10:42] LABS: HYPOCHROMASIA 1+; PLATELET ESTIMATE INCREASED; POLYCHROMASIA 2+; ROULEAUX 1+; TARGET CELLS FEW
[2018-07-27 11:00] VITALS: BP 93/57
[2018-07-27 12:33] VITALS: BP 107/54
[2018-07-27 20:00] VITALS: BP 104/56
[2018-07-27] MEDS: albuterol 2.5 MG/3 ML nebule NEB SCH (20:00)
--- NOTE | 2018-07-27 20:28 | NUR ---
Patient inform of blood pressure tonight. Hyuntent would like medication to be held tonight. Patient bp 104/56. Nurse agree and thought that was a good idea also.
--- NOTE | 2018-07-27 20:49 | NUR ---
PT REFUSED 1999 SVN TREATMENT
[2018-07-27] MEDS: nicotine 21mg patch - 24 hr TD SCH (22:00)
[2018-07-27] MEDS: insulin glargine (Lantus) pen - multi-dose SQ SCH (22:06)
[2018-07-28] VITALS: BP 113/59
[2018-07-28] MEDS: HYDROmorphone 2mg tablet PO PRN ×3 (03:09→12:37)
--- NOTE | 2018-07-28 06:41 | NUR ---
Patient in room VIK 354. I have received report from Nani CEJA and had the opportunity to ask questions and assume patient care.
[2018-07-28 07:00] VITALS: BP 118/45
[2018-07-28] MEDS: amox tr/potassium clavulanate 875/125mg TAB PO SCH (07:34)
[2018-07-28] MEDS: clopidogrel 75mg tablet PO SCH (07:35)
[2018-07-28] MEDS: atorvastatin 20mg tablet PO SCH (07:35)
[2018-07-28] MEDS: lactobacillus rhamnosus 10,000 MMU CELLS/CAPSULE PO SCH (07:35)
[2018-07-28] MEDS: apixaban 5mg tablet PO SCH (07:35)
[2018-07-28] MEDS: ciprofloxacin 250mg tablet PO SCH (07:36)
[2018-07-28] MEDS: pregabalin 25mg capsule PO SCH ×2 (07:36→12:37)
[2018-07-28] MEDS: lisinopril 5mg tablet PO SCH (07:36)
[2018-07-28] MEDS: albuterol 2.5 MG/3 ML nebule NEB SCH (08:00)
[2018-07-28] MEDS: insulin Lispro (HumaLOG) vial - multi-dose SQ SCH ×2 (09:03→13:31)
[2018-07-28 09:31] LABS: BASOPHILS % (AUTO) 0.3 % (0-1); EOSINOPHILS # (AUTO) 0.5 X10'3 (0-0.9); EOSINOPHILS % (AUTO) 4.2 % (0-6); HEMOGLOBIN 8.8 g/dl (12.0-16.0); LYMPHOCYTES # (AUTO) 2.4 X10'3 (1.1-4.8); LYMPHOCYTES % (AUTO) 18.7 % (21-51); MEAN CORPUSCULAR HEMOGLOBIN 29.5 PG (27.0-31.0); MEAN CORPUSCULAR HGB CONC 32.6 % (33.0-36.5); MEAN CORPUSCULAR VOLUME 90.4 FL (78-98); MEAN PLATELET VOLUME 7.4 FL (7.4-10.4); MONOCYTES # (AUTO) 1.3 X10'3 (0-0.9); MONOCYTES % (AUTO) 10.1 % (2-12); NEUTROPHILS # (AUTO) 8.6 X10'3 (1.8-7.7); NEUTROPHILS % (AUTO) 66.7 % (42-75); PLATELET COUNT 932 X10'3 (140-440); RED BLOOD COUNT 2.99 X10'6 (4.20-5.60); RED CELL DISTRIBUTION WIDTH 14.5 % (11.5-14.5); WHITE BLOOD COUNT 12.8 X10'3 (4.5-11.0)
[2018-07-28 09:37] LABS: ANION GAP 11 (8-16); BLOOD UREA NITROGEN 18 MG/DL (7-18); BUN/CREATININE RATIO 20.7 (6.6-38.0); CHLORIDE 97 MMOL/L (99-107); CREATININE 0.87 MG/DL (0.40-0.90); GLUCOSE 246 MG/DL (70-104); POTASSIUM 4.9 MMOL/L (3.5-5.1); SODIUM 132 MMOL/L (135-145); TOTAL CARBON DIOXIDE 24.3 MMOL/L (24-32); eGFR 66 ML/MIN
[2018-07-28 11:49] VITALS: BP 107/64
--- NOTE | 2018-07-28 17:06 | NUR ---
patient seen by Dr fitzgerald and DR Phillips. Is for discharge, All DC instructions given to patient. patient appears stable for DC. DC home via private car with 1645hrs.
--- NOTE | 2018-07-30 09:25 | NUR ---
pt's d/c'd home, SS referral closed.
== END 2018-07-28 16:48 | disposition home or self-care (01) | DRG 169 ==
LOC: ER 08:04 → SUR 3N 10:03 → CICU 2S 15:15 → SUR 3N 07-14 18:03
PROVIDERS: ADMIT Internal Medicine; ATTEND Internal Medicine
PROC: B41F1ZZ Fluoroscopy of Right Lower Extremity Arteries using Low Osmolar Contrast (ICD-10-PCS; 2018-07-07)
PROC: B41F1ZZ Fluoroscopy of Right Lower Extremity Arteries using Low Osmolar Contrast (ICD-10-PCS; 2018-07-08)
PROC: 04HH33Z Insertion of Infusion Device into Right External Iliac Artery, Percutaneous Approach (ICD-10-PCS; 2018-07-08)
PROC: 04CH0ZZ Extirpation of Matter from Right External Iliac Artery, Open Approach (ICD-10-PCS; 2018-07-11)
PROC: 06BP0ZZ Excision of Right Saphenous Vein, Open Approach (ICD-10-PCS; 2018-07-11)
PROC: 02HV33Z Insertion of Infusion Device into Superior Vena Cava, Percutaneous Approach (ICD-10-PCS; 2018-07-11)
PROC: B548ZZA Ultrasonography of Superior Vena Cava, Guidance (ICD-10-PCS; 2018-07-11)
PROC: 03HY32Z Insertion of Monitoring Device into Upper Artery, Percutaneous Approach (ICD-10-PCS; 2018-07-11)
PROC: 041K0JQ Bypass Right Femoral Artery to Lower Extremity Artery with Synthetic Substitute, Open Approach (ICD-10-PCS; 2018-07-11)
PROC: 041K09Q Bypass Right Femoral Artery to Lower Extremity Artery with Autologous Venous Tissue, Open Approach (ICD-10-PCS; principal; 2018-07-11 11:20)
PROC: 041H0JH Bypass Right External Iliac Artery to Right Femoral Artery with Synthetic Substitute, Open Approach (ICD-10-PCS; 2018-07-12)
PROC: 04CH0ZZ Extirpation of Matter from Right External Iliac Artery, Open Approach (ICD-10-PCS; 2018-07-12)
PROC: B42F1ZZ Computerized Tomography (CT Scan) of Right Lower Extremity Arteries using Low Osmolar Contrast (ICD-10-PCS; 2018-07-12)
PROC: B4101ZZ Fluoroscopy of Abdominal Aorta using Low Osmolar Contrast (ICD-10-PCS; 2018-07-12)
PROC: B41C1ZZ Fluoroscopy of Pelvic Arteries using Low Osmolar Contrast (ICD-10-PCS; 2018-07-12)
PROC: B41F1ZZ Fluoroscopy of Right Lower Extremity Arteries using Low Osmolar Contrast (ICD-10-PCS; 2018-07-12)
DX: T82.898A Other specified complication of vascular prosthetic devices, implants and grafts, initial encounter (principal); A41.9 Sepsis, unspecified organism; I96 Gangrene, not elsewhere classified; E11.40 Type 2 diabetes mellitus with diabetic neuropathy, unspecified; E11.65 Type 2 diabetes mellitus with hyperglycemia; J44.9 Chronic obstructive pulmonary disease, unspecified; Z89.429 Acquired absence of other toe(s), unspecified side; I10 Essential (primary) hypertension; F41.9 Anxiety disorder, unspecified; E11.52 Type 2 diabetes mellitus with diabetic peripheral angiopathy with gangrene; D47.3 Essential (hemorrhagic) thrombocythemia; E66.9 Obesity, unspecified; E78.5 Hyperlipidemia, unspecified; D64.9 Anemia, unspecified; F17.210 Nicotine dependence, cigarettes, uncomplicated; Y83.2 Surgical operation with anastomosis, bypass or graft as the cause of abnormal reaction of the patient, or of later complication, without mention of misadventure at the time of the procedure; F12.90 Cannabis use, unspecified, uncomplicated; R79.89 Other specified abnormal findings of blood chemistry; Z88.5 Allergy status to narcotic agent; Z88.2 Allergy status to sulfonamides; Z79.899 Other long term (current) drug therapy; Z79.01 Long term (current) use of anticoagulants; Z79.4 Long term (current) use of insulin; Z68.31 Body mass index [BMI] 31.0-31.9, adult
CPT/HCPCS: 36245; 36246; 36415; 37211; 37212; 37214; 71045; 73590; 73706; 75710; 76000; 76937; 80048; 80053; 81001; 82948; 83605; 83735; 83880; 84132; 85025; 85027; 85384; 85610; 85730; 86140; 86885; 86900; 86901; 87040; 87070; 87075; 87176; 93005; 93970; 94760; 97110; 97161; 97530; 99152; 99153; 99285; A4620; A6223; A6255; A6258; A6446; A6449; A6454; A7000; C1757; C1758; C1768; C1769; C1781; C1894; C9399; G0378; J0360; J0690; J1100; J1580; J1644; J1815; J2001; J2060; J2250; J2270; J2370; J2405; J2543; J2704; J2710; J2765; J2997; J3010; J3475; J3480; J3490; J7030; J7120; J7614; P9045; Q9967

== ENCOUNTER 2018-08-11 20:38 | Inpatient (IN) | payer MEDICAID ==
[~2018-08-11] VITALS: Ht 165.1 cm; Wt 91.0 kg
[2018-08-11] MEDS ORDERED: normal saline 1000ML IV soln IV ONE (21:20)
[2018-08-11] MEDS ORDERED: iohexol 350 MG/ML 50ML vial IV ONE (22:07)
[2018-08-11] MEDS ORDERED: iohexol 350MG/ML 100ml bottle IV ONE (22:07)
[2018-08-11] MEDS ORDERED: LORazepam 2 mg/ml vial IV ONE (22:15)
[2018-08-11] MEDS ORDERED: ondansetron/PF 4mg/2ml inj IV ONE (22:15)
[2018-08-11] MEDS ORDERED: HYDROmorphone 1 mg/ml syringe IV ONE (22:15)
--- NOTE | 2018-08-11 22:16 | NUR ---
Patient has refused and his tearful about many different things including vienapuncture. YEFRI Mcdermott verbal order for 1mg Ativan, Dilaudid 1mg, 4mg of zofran.
[2018-08-11 23:33] LABS: BASOPHILS # (AUTO) 0.1 X10'3 (0-0.2); BASOPHILS % (AUTO) 0.4 % (0-1); EOSINOPHILS # (AUTO) 0.5 X10'3 (0-0.9); EOSINOPHILS % (AUTO) 2.9 % (0-6); HEMATOCRIT 29.5 % (35.0-45.0); HEMOGLOBIN 9.3 g/dl (12.0-16.0); LYMPHOCYTES % (AUTO) 10.9 % (21-51); MEAN CORPUSCULAR HGB CONC 31.5 % (33.0-36.5); MEAN CORPUSCULAR VOLUME 85.6 FL (78-98); MEAN PLATELET VOLUME 7.4 FL (7.4-10.4); MONOCYTES # (AUTO) 1.6 X10'3 (0-0.9); MONOCYTES % (AUTO) 8.8 % (2-12); NEUTROPHILS # (AUTO) 14.1 X10'3 (1.8-7.7); PLATELET COUNT 625 X10'3 (140-440); RED BLOOD COUNT 3.45 X10'6 (4.20-5.60); RED CELL DISTRIBUTION WIDTH 16.6 % (11.5-14.5); WHITE BLOOD COUNT 18.3 X10'3 (4.5-11.0)
[2018-08-11 23:47] LABS: ALANINE AMINOTRANSFERASE 17 U/L (12-78); ALBUMIN 2.3 G/DL (3.4-5.0); ALBUMIN/GLOBULIN RATIO 0.4 (1.1-1.5); ALKALINE PHOSPHATASE 142 IU/L (46-116); ANION GAP 8 (8-16); ASPARTATE AMINO TRANSFERASE 15 U/L (10-37); BILIRUBIN,TOTAL 0.3 MG/DL (0.1-1.0); BLOOD UREA NITROGEN 16 MG/DL (7-18); BUN/CREATININE RATIO 18.8 (6.6-38.0); CALCIUM 8.4 MG/DL (8.5-10.1); CHLORIDE 98 MMOL/L (99-107); CREATININE 0.85 MG/DL (0.40-0.90); GLUCOSE 272 MG/DL (70-104); MAGNESIUM 1.8 MG/DL (1.5-2.4); POTASSIUM 4.3 MMOL/L (3.5-5.1); SODIUM 132 MMOL/L (135-145); TOTAL CARBON DIOXIDE 25.7 MMOL/L (24-32); TOTAL PROTEIN 7.5 G/DL (6.4-8.2); eGFR 68 ML/MIN
[2018-08-11 23:51] LABS: INR 1.2 INR; PARTIAL THROMBOPLASTIN TIME 34 SECONDS (22-32); PROTHROMBIN TIME 11.7 SECONDS (9.0-12.0)
[2018-08-12] VITALS (12 sets, daily range): BP systolic 99–138; BP diastolic 42–60
[2018-08-12] MEDS: [UNRECOGNIZED DRUG - OTHER] IV SCH ×2 (01:00→03:53)
[2018-08-12] MEDS: VANCOMYCIN IV SCH ×2 (01:00→03:53)
[2018-08-12] MEDS: SODIUM CHLORIDE IV SCH ×2 (01:00→03:53)
[2018-08-12] MEDS ORDERED: dextrose ORAL solution 15 GM/59 ML bottle PO PRN ×2 (01:35)
[2018-08-12] MEDS ORDERED: MESSAGE TO PHARMACY PO ONE (01:35)
[2018-08-12] MEDS ORDERED: glucagon, human recombinant 1mg kit SUBCUT PRN (01:35)
[2018-08-12] MEDS ORDERED: CADD PCA waste documentation MC PRN (01:35)
[2018-08-12] MEDS ORDERED: dextrose 50%-water 50ml dispensing syringe IV PRN ×2 (01:35)
[2018-08-12] MEDS ORDERED: naloxone 0.4 mg/ml inj IV PRN (01:35)
[2018-08-12] MEDS ORDERED: acetaminophen 325mg tablet PO PRN (01:45)
[2018-08-12] MEDS ORDERED: ondansetron/PF 4mg/2ml inj IV PRN ×2 (01:45→18:05)
[2018-08-12] MEDS ORDERED: mag hydrox/Alum hydrox/simeth 30ml oral suspension PO PRN (01:45)
[2018-08-12] MEDS: HYDROmorphone/NS 1 mg/ml CADD 50 ML IV SCH ×11 (03:00→23:00)
[2018-08-12] MEDS: normal saline 500ml IV soln 1,000 ML IV SCH ×2 (03:00→22:48)
--- NOTE | 2018-08-12 06:48 | NUR ---
Problems reprioritized. Patient report given, questions answered & plan of care reviewed with Dorota CEJA. Patient resting in bed, appears in no distress.
[2018-08-12] MEDS: albuterol 2.5 MG/3 ML nebule NEB SCH ×2 (08:00→09:00)
[2018-08-12] MEDS: lisinopril 5mg tablet PO SCH ×2 (08:00→23:00)
[2018-08-12] MEDS: amLODIPine 5mg tablet PO SCH (08:00)
[2018-08-12] MEDS: pregabalin 25mg capsule PO SCH ×3 (09:04→23:00)
[2018-08-12] MEDS: piperacillin/tazo 3.375gm/50ml 50 ML IV SCH ×3 (09:09→23:43)
[2018-08-12] MEDS: insulin Lispro (HumaLOG) vial - multi-dose SQ SCH (09:12)
--- NOTE | 2018-08-12 10:58 | NUR ---
Attempts x 2 using extended PIV unsuccessful. Patient request procedure stopped on second attempt. arcelia well Addendum: 08/12/18 at 1059 by Simin Quinones RN Amended: Links added.
[2018-08-12] MEDS: vancomycin inj 1,250 MG in normal saline 250ml IV soln 250 ML IV SCH ×2 (11:19→23:43)
[2018-08-12] MEDS: nicotine 14mg patch - 24hr TD SCH (11:20)
[2018-08-12] MEDS: nystatin 15 GM powder TP SCH ×2 (12:44→23:00)
--- NOTE | 2018-08-12 13:31 | NUR ---
Pt blood sugar 158, pt npo and awaiting surgery, we will not give insulin for this shift for risk of dropping prior or during surgery, will continue to monitor.
--- NOTE | 2018-08-12 14:10 | NUR ---
Dr Wahl will take pt to surgery around [address] wants 2 units of blood on hold for pt. I talked to Deena in blood bank. She says to just put in a type and screen and order the blood, a cross match is not needed because when blood is ordered it will automatically done.
--- NOTE | 2018-08-12 17:14 | NUR ---
Wound and DM consult: Pt admit w/ infected graft site. Previously denied abx and pt has developed a wound and soft tissue infection per H&P. Per physical assessment pt w/ surgical wound to rt groin, medial abdomen, rt lateral calf, rt thigh knee to calf as well as reddened pressure area to sacrum/coccyx. Pt w/ A1C 11.1, pt currently in surgery holding room, will f/u for DM and protein education once pt is available. Pt previously admitted and received written and verbal pro and DM ed 07/14/[address] Woodson consult: Pt's current weight up from documented weight from previous visit. Unable to assess PO intake due to pt being NPO. Will follow up w/ pt to further assess for raynut. Rec: 1.Advance diet as medically indicated to CHO control 2.Monitor for ONS 3.Monitor for bowel care 4.wt per rx Addendum: 08/12/18 at [address] Amended: Links added. Addendum: 08/12/18 at 1725 [address] I have reviewed and agree with note by Marine Pipe Welder. Anne Marie Talamantes RD
[2018-08-12] MEDS ORDERED: ringers solution, lacted 1,000 ML IV SCH (18:01)
[2018-08-12] MEDS ORDERED: proCHLORperazine 10 MG/2 ml inj IV PRN (18:05)
[2018-08-12] MEDS ORDERED: meperidine/PF 25mg/ml syringe IV PRN ×3 (18:05)
[2018-08-12] MEDS ORDERED: morphine 4 MG/ML inj SYRINge IV PRN ×2 (18:05)
--- NOTE | 2018-08-12 18:21 | NUR ---
Pt taken to OR, pt wanting belongings taken to safe but safe will only take wallet, not whole purse. Pt gave permission for me to take her purse and give wallet to ER admissions to hold safe. Purse safe at charge desk until ER admissions arrived. Both myself and her went through purse for any belongings that needed to be sent to safe and the rest of her purse, phone, phone cord ect...will be sent to cicu room. Safe slip to redeem items in patients purse.
--- NOTE | 2018-08-12 18:40 | NUR ---
Report given to Radha CEJA in CICU. All questions answered. Pt belongings are being moved to room 2010.
[2018-08-12] MEDS ORDERED: heparin 10,000 units/1 ML INJ ONE (18:51)
[2018-08-12] MEDS ORDERED: ceFAZolin 1000mg inj ONE (18:51)
[2018-08-12] MEDS ORDERED: midazolam 2 mg/2 ml injection ONE (19:09)
[2018-08-12] MEDS ORDERED: fentaNYL /PF 50mcg/ml 5ml ampule ONE (19:09)
[2018-08-12] MEDS ORDERED: ondansetron/PF 4mg/2ml inj ONE (19:22)
[2018-08-12] MEDS ORDERED: dexamethasone sod phosphate 10mg/ml inj ONE (19:22)
[2018-08-12] MEDS ORDERED: sevoflurane 250ml liquid IH ONE (19:22)
[2018-08-12] MEDS ORDERED: propofol inj 20 ML IV ONE (19:37)
[2018-08-12] MEDS ORDERED: rocuronium 10mg/ml inj IV ONE (19:37)
[2018-08-12] MEDS ORDERED: neostigmine methylsulfate 1 MG/ML 10ml vial ONE (21:52)
[2018-08-12] MEDS ORDERED: glycopyrrolate 0.2mg/ml inj ONE (21:52)
[2018-08-12] MEDS ORDERED: HYDROmorphone 1 mg/ml syringe IV PRN (22:00)
[2018-08-12] MEDS ORDERED: albumin (Human) 5% 250ml 250 ML IV ONE ×2 (22:30)
[2018-08-12] MEDS ORDERED: NORepinephrine 8mg/ 250ml NS 250 ML IV SCH (22:30)
[2018-08-12] MEDS ORDERED: albumin (Human) 5% 250ml 500 ML IV ONE (22:40)
[2018-08-13] VITALS (24 sets, daily range): BP systolic 100–149; BP diastolic 31–72
[2018-08-13] MEDS: HYDROmorphone/NS 1 mg/ml CADD 50 ML IV SCH ×12 (01:00→23:00)
--- NOTE | 2018-08-13 03:07 | NUR ---
2200..Received to room 2010, accompanied by Cruzito Corral and surgical crew. monitored. Marshall cath to gravity drainage. Dressings are dry and intact. See assessment record. Wound vac in place to right groin 75mmHg low continous suction.Pt sleepy but easy to arouse.
--- NOTE | 2018-08-13 03:10 | NUR ---
0..Assessment as noted, dwaine brooks for pain management, effective.
--- NOTE | 2018-08-13 04:39 | NUR ---
0000..No changes noted, pulses to legs unchanged.
--- NOTE | 2018-08-13 04:40 | NUR ---
0400..Continues to rest quietly, no changes noted.
--- NOTE | 2018-08-13 04:40 | NUR ---
0200..No changes noted.
--- NOTE | 2018-08-13 06:35 | NUR ---
0635..Problems reprioritized. Patient report given, questions answered & plan of care reviewed with Elidia CEJA.
--- NOTE | 2018-08-13 06:38 | NUR ---
Patient in room CICU 2009. I have received report from Carmella CEJA and had the opportunity to ask questions and assume patient care.
[2018-08-13] MEDS: nicotine 14mg patch - 24hr TD SCH ×2 (08:00→09:44)
[2018-08-13] MEDS: pregabalin 25mg capsule PO SCH ×3 (09:19→21:11)
[2018-08-13] MEDS: clopidogrel 75mg tablet PO SCH (09:20)
[2018-08-13] MEDS: amLODIPine 5mg tablet PO SCH (09:20)
[2018-08-13] MEDS: piperacillin/tazo 3.375gm/50ml 50 ML IV SCH ×3 (09:20→20:17)
[2018-08-13] MEDS: apixaban 5mg tablet PO SCH ×2 (09:20→20:18)
[2018-08-13] MEDS: nystatin 15 GM powder TP SCH ×3 (09:21→23:33)
[2018-08-13] MEDS: lisinopril 5mg tablet PO SCH ×2 (09:22→20:17)
[2018-08-13] MEDS: insulin Lispro (HumaLOG) vial - multi-dose SQ SCH ×3 (09:35→20:23)
[2018-08-13 10:21] LABS: BASOPHILS % (AUTO) 0 % (0-1); EOSINOPHILS # (AUTO) 0.1 X10'3 (0-0.9); EOSINOPHILS % (AUTO) 0.8 % (0-6); HEMATOCRIT 29.5 % (35.0-45.0); HEMOGLOBIN 9.2 g/dl (12.0-16.0); LYMPHOCYTES # (AUTO) 1.1 X10'3 (1.1-4.8); LYMPHOCYTES % (AUTO) 6.6 % (21-51); MEAN CORPUSCULAR HEMOGLOBIN 26.6 PG (27.0-31.0); MEAN CORPUSCULAR HGB CONC 31.3 % (33.0-36.5); MEAN CORPUSCULAR VOLUME 85.3 FL (78-98); MEAN PLATELET VOLUME 7.6 FL (7.4-10.4); MONOCYTES # (AUTO) 0.8 X10'3 (0-0.9); MONOCYTES % (AUTO) 5.1 % (2-12); NEUTROPHILS % (AUTO) 87.5 % (42-75); PLATELET COUNT 612 X10'3 (140-440); RED BLOOD COUNT 3.46 X10'6 (4.20-5.60); RED CELL DISTRIBUTION WIDTH 16.7 % (11.5-14.5)
[2018-08-13 10:53] LABS: ALANINE AMINOTRANSFERASE 21 U/L (12-78); ALBUMIN 2.5 G/DL (3.4-5.0); ALBUMIN/GLOBULIN RATIO 0.5 (1.1-1.5); ALKALINE PHOSPHATASE 141 IU/L (46-116); ANION GAP 13 (8-16); ASPARTATE AMINO TRANSFERASE 18 U/L (10-37); BILIRUBIN,TOTAL 0.3 MG/DL (0.1-1.0); BLOOD UREA NITROGEN 10 MG/DL (7-18); BUN/CREATININE RATIO 11.9 (6.6-38.0); CALCIUM 8.5 MG/DL (8.5-10.1); CHLORIDE 100 MMOL/L (99-107); CREATININE 0.84 MG/DL (0.40-0.90); GLUCOSE 317 MG/DL (70-104); MAGNESIUM 1.7 MG/DL (1.5-2.4); POTASSIUM 4.2 MMOL/L (3.5-5.1); SODIUM 135 MMOL/L (135-145); TOTAL CARBON DIOXIDE 22.5 MMOL/L (24-32); TOTAL PROTEIN 7.3 G/DL (6.4-8.2); eGFR 68 ML/MIN
[2018-08-13] MEDS: vancomycin inj 1,250 MG in normal saline 250ml IV soln 250 ML IV SCH ×2 (11:36→23:28)
--- NOTE | 2018-08-13 12:04 | NUR ---
new paTCH ON PT
[2018-08-13] MEDS ORDERED: fluconazole 100mg tablet PO ONE (18:00)
--- NOTE | 2018-08-13 18:01 | NUR ---
Pt requests medication for vaginal yeast infection. Dr. Simmons called and order obtained
--- NOTE | 2018-08-13 18:30 | NUR ---
Patient in room CICU 2009. I have received report from Abhi Noble and had the opportunity to ask questions and assume patient care.
--- NOTE | 2018-08-13 18:37 | NUR ---
Problems reprioritized. Patient report given, questions answered & plan of care reviewed with Jes CEJA.
[2018-08-13] MEDS: albuterol 2.5 MG/3 ML nebule NEB SCH (20:55)
--- NOTE | 2018-08-13 21:15 | NUR ---
patient refused pm insulin, stated she hates needles
--- NOTE | 2018-08-13 21:30 | NUR ---
RECEIVED FROM CICU PER BED TO ROOM 344A.
[2018-08-13] MEDS ORDERED: VANCOMYCIN LEVEL IV NR (22:30)
--- NOTE | 2018-08-13 22:47 | NUR ---
Problems reprioritized. Patient report given, questions answered & plan of care reviewed with Rah Noble, patient transfering to [address] chart, belonging and meds accompanied patient
[2018-08-14] VITALS: BP 103/56
--- NOTE | 2018-08-14 00:10 | NUR ---
VANCO TROUGH 20.9, VANCOMYCIN STOPPED, 83 ML GIVEN AN CASSI PHARMACIST NOTIFIED.
[2018-08-14] MEDS: HYDROmorphone/NS 1 mg/ml CADD 50 ML IV SCH ×12 (01:00→23:00)
[2018-08-14] MEDS: piperacillin/tazo 3.375gm/50ml 50 ML IV SCH ×4 (02:25→20:17)
[2018-08-14] MEDS: normal saline 500ml IV soln 1,000 ML IV SCH (03:13)
--- NOTE | 2018-08-14 05:50 | NUR ---
MORGAN CATH. REMOVED AND PT. TOLERATED PROCEDURE WELL.
--- NOTE | 2018-08-14 06:32 | NUR ---
Problems reprioritized. Patient report given, questions answered & plan of care reviewed with SHARLA CEJA.
[2018-08-14 07:30] VITALS: BP 132/67
[2018-08-14] MEDS: insulin Lispro (HumaLOG) vial - multi-dose SQ SCH ×3 (08:30→19:08)
[2018-08-14] MEDS: clopidogrel 75mg tablet PO SCH (08:32)
[2018-08-14] MEDS: lisinopril 5mg tablet PO SCH ×2 (08:33→20:17)
[2018-08-14] MEDS: amLODIPine 5mg tablet PO SCH (08:33)
[2018-08-14] MEDS: pregabalin 25mg capsule PO SCH ×3 (08:33→20:45)
[2018-08-14] MEDS: apixaban 5mg tablet PO SCH ×2 (08:33→20:17)
[2018-08-14] MEDS: nicotine 14mg patch - 24hr TD SCH (08:33)
[2018-08-14] MEDS: nystatin 15 GM powder TP SCH ×3 (08:35→20:45)
[2018-08-14] MEDS: albuterol 2.5 MG/3 ML nebule NEB SCH ×2 (09:00→21:00)
[2018-08-14] MEDS: vancomycin inj 1,250 MG in normal saline 250ml IV soln 250 ML IV SCH ×2 (11:26→23:00)
[2018-08-14 12:00] VITALS: BP 135/68
--- NOTE | 2018-08-14 13:42 | NUR ---
Reassessment: Pt s/p exploration of right groin for infection, ID and final cultures pending per MD notes. Patient's diet has been advanced to CHO controlled, documented PO intake 75-100% meeting nutrient needs. Pt seen at bedside denies any further questions or education about protein and DM nutrition therapy. LBM 08/10, pt agreeable to prunes with dinner, d/w dietary. Will continue to follow. Rec: 1.Continue with CHO control diet 2.Monitor for ONS 3.Monitor need for additional bowel care 4.wt per rx Addendum: 08/14/18 at [address] Amended: Links added.
--- NOTE | 2018-08-14 18:47 | NUR ---
Problems reprioritized. Patient report given, questions answered & plan of care reviewed with BRENNA Jacques.
--- NOTE | 2018-08-14 18:48 | NUR ---
Patient in room VIK 344. I have received report from SHARLA CEJA and had the opportunity to ask questions and assume patient care.
[2018-08-14 19:00] VITALS: BP 110/56
[2018-08-14] MEDS: lactobacillus rhamnosus 10,000 MMU CELLS/CAPSULE PO SCH (20:17)
--- NOTE | 2018-08-14 22:02 | NUR ---
PT REFUSED 2100 SVN TREATMENT
[2018-08-15] VITALS: BP 111/54
[2018-08-15] MEDS: HYDROmorphone/NS 1 mg/ml CADD 50 ML IV SCH ×12 (01:00→23:00)
[2018-08-15] MEDS: piperacillin/tazo 3.375gm/50ml 50 ML IV SCH ×4 (02:12→20:01)
[2018-08-15] MEDS: normal saline 500ml IV soln 1,000 ML IV SCH (04:16)
--- NOTE | 2018-08-15 06:18 | NUR ---
Problems reprioritized. Patient report given, questions answered & plan of care reviewed with BRYAN CEJA.
--- NOTE | 2018-08-15 06:28 | NUR ---
Patient in room VIK 344. I have received report from Sawyer CEJA and had the opportunity to ask questions and assume patient care.
[2018-08-15] MEDS: pantoprazole 40mg Tablet.DR PO SCH (07:42)
[2018-08-15] MEDS: amLODIPine 5mg tablet PO SCH (07:42)
[2018-08-15] MEDS: lactobacillus rhamnosus 10,000 MMU CELLS/CAPSULE PO SCH ×2 (07:42→20:02)
[2018-08-15] MEDS: clopidogrel 75mg tablet PO SCH (07:42)
[2018-08-15] MEDS: apixaban 5mg tablet PO SCH ×2 (07:42→20:02)
[2018-08-15] MEDS: lisinopril 5mg tablet PO SCH ×2 (07:42→20:03)
[2018-08-15] MEDS: nicotine 14mg patch - 24hr TD SCH (07:43)
[2018-08-15] MEDS: pregabalin 25mg capsule PO SCH ×3 (07:43→22:25)
[2018-08-15 07:44] LABS: BASOPHILS % (AUTO) 0.4 % (0-1); EOSINOPHILS # (AUTO) 0.4 X10'3 (0-0.9); EOSINOPHILS % (AUTO) 3.8 % (0-6); HEMATOCRIT 26.5 % (35.0-45.0); HEMOGLOBIN 8.3 g/dl (12.0-16.0); LYMPHOCYTES # (AUTO) 2.5 X10'3 (1.1-4.8); LYMPHOCYTES % (AUTO) 22.8 % (21-51); MEAN CORPUSCULAR HEMOGLOBIN 26.3 PG (27.0-31.0); MEAN CORPUSCULAR HGB CONC 31.2 % (33.0-36.5); MEAN CORPUSCULAR VOLUME 84.3 FL (78-98); MEAN PLATELET VOLUME 7.3 FL (7.4-10.4); MONOCYTES # (AUTO) 1.1 X10'3 (0-0.9); MONOCYTES % (AUTO) 10.3 % (2-12); NEUTROPHILS # (AUTO) 6.9 X10'3 (1.8-7.7); NEUTROPHILS % (AUTO) 62.7 % (42-75); PLATELET COUNT 553 X10'3 (140-440); RED BLOOD COUNT 3.14 X10'6 (4.20-5.60); RED CELL DISTRIBUTION WIDTH 17.6 % (11.5-14.5); WHITE BLOOD COUNT 11.1 X10'3 (4.5-11.0)
[2018-08-15 08:00] VITALS: BP 142/70
[2018-08-15] MEDS: nystatin 15 GM powder TP SCH ×3 (08:00→22:25)
[2018-08-15 08:02] LABS: ALANINE AMINOTRANSFERASE 19 U/L (12-78); ALBUMIN 2.1 G/DL (3.4-5.0); ALBUMIN/GLOBULIN RATIO 0.4 (1.1-1.5); ALKALINE PHOSPHATASE 118 IU/L (46-116); ANION GAP 8 (8-16); ASPARTATE AMINO TRANSFERASE 16 U/L (10-37); BILIRUBIN,TOTAL 0.1 MG/DL (0.1-1.0); BLOOD UREA NITROGEN 17 MG/DL (7-18); BUN/CREATININE RATIO 20.2 (6.6-38.0); CALCIUM 8.6 MG/DL (8.5-10.1); CHLORIDE 104 MMOL/L (99-107); CREATININE 0.84 MG/DL (0.40-0.90); GLUCOSE 204 MG/DL (70-104); SODIUM 139 MMOL/L (135-145); TOTAL CARBON DIOXIDE 26.6 MMOL/L (24-32); TOTAL PROTEIN 6.8 G/DL (6.4-8.2); eGFR 68 ML/MIN
[2018-08-15] MEDS: albuterol 2.5 MG/3 ML nebule NEB SCH ×2 (09:00→19:58)
[2018-08-15] MEDS: insulin Lispro (HumaLOG) vial - multi-dose SQ SCH ×3 (09:02→19:59)
[2018-08-15 12:00] VITALS: BP 136/67
[2018-08-15] MEDS: vancomycin inj 1,250 MG in normal saline 250ml IV soln 250 ML IV SCH ×2 (12:34→22:25)
--- NOTE | 2018-08-15 18:38 | NUR ---
Problems reprioritized. Patient report given, questions answered & plan of care reviewed with Olivia Noble.
--- NOTE | 2018-08-15 18:52 | NUR ---
Patient in room VIK 344. I have received report from Ale CEJA and had the opportunity to ask questions and assume patient care.
[2018-08-15 19:00] VITALS: BP 118/58
[2018-08-15] MEDS: magnesium hydroxide 30ml (MOM) UD suspension PO PRN (22:30)
[2018-08-16] VITALS: BP 128/68
[2018-08-16] MEDS: HYDROmorphone/NS 1 mg/ml CADD 50 ML IV SCH ×7 (01:00→13:00)
[2018-08-16] MEDS: piperacillin/tazo 3.375gm/50ml 50 ML IV SCH (01:20)
[2018-08-16] MEDS: normal saline 500ml IV soln 1,000 ML IV SCH (05:25)
[2018-08-16 05:41] LABS: ALANINE AMINOTRANSFERASE 20 U/L (12-78); ALBUMIN/GLOBULIN RATIO 0.4 (1.1-1.5); ALKALINE PHOSPHATASE 117 IU/L (46-116); ANION GAP 6 (8-16); ASPARTATE AMINO TRANSFERASE 17 U/L (10-37); BILIRUBIN,TOTAL 0.2 MG/DL (0.1-1.0); BLOOD UREA NITROGEN 13 MG/DL (7-18); CALCIUM 8.6 MG/DL (8.5-10.1); CHLORIDE 104 MMOL/L (99-107); CREATININE 0.81 MG/DL (0.40-0.90); GLUCOSE 185 MG/DL (70-104); SODIUM 139 MMOL/L (135-145); TOTAL CARBON DIOXIDE 29.2 MMOL/L (24-32); TOTAL PROTEIN 6.9 G/DL (6.4-8.2); eGFR 71 ML/MIN
[2018-08-16 05:43] LABS: BASOPHILS % (AUTO) 0.3 % (0-1); EOSINOPHILS # (AUTO) 0.6 X10'3 (0-0.9); HEMOGLOBIN 8.7 g/dl (12.0-16.0); LYMPHOCYTES # (AUTO) 2.2 X10'3 (1.1-4.8); LYMPHOCYTES % (AUTO) 17.6 % (21-51); MEAN CORPUSCULAR HEMOGLOBIN 26.3 PG (27.0-31.0); MEAN CORPUSCULAR VOLUME 84.7 FL (78-98); MEAN PLATELET VOLUME 7.4 FL (7.4-10.4); MONOCYTES # (AUTO) 1.1 X10'3 (0-0.9); NEUTROPHILS # (AUTO) 8.5 X10'3 (1.8-7.7); NEUTROPHILS % (AUTO) 68.1 % (42-75); PLATELET COUNT 595 X10'3 (140-440); RED CELL DISTRIBUTION WIDTH 17.4 % (11.5-14.5); WHITE BLOOD COUNT 12.6 X10'3 (4.5-11.0)
--- NOTE | 2018-08-16 06:00 | NUR ---
Problems reprioritized. Patient report given, questions answered & plan of care reviewed with Dorota CEJA.
[2018-08-16 07:00] VITALS: BP 121/59
[2018-08-16] MEDS: albuterol 2.5 MG/3 ML nebule NEB SCH ×2 (09:00→21:00)
[2018-08-16] MEDS: lactobacillus rhamnosus 10,000 MMU CELLS/CAPSULE PO SCH ×2 (09:30→22:35)
[2018-08-16] MEDS: insulin Lispro (HumaLOG) vial - multi-dose SQ SCH ×2 (09:30→19:43)
[2018-08-16] MEDS: lisinopril 5mg tablet PO SCH ×2 (09:30→22:42)
[2018-08-16] MEDS: clopidogrel 75mg tablet PO SCH (09:31)
[2018-08-16] MEDS: pregabalin 25mg capsule PO SCH ×3 (09:31→22:36)
[2018-08-16] MEDS: nicotine 14mg patch - 24hr TD SCH (09:32)
[2018-08-16] MEDS: pantoprazole 40mg Tablet.DR PO SCH (09:32)
[2018-08-16] MEDS: amLODIPine 5mg tablet PO SCH (09:32)
[2018-08-16] MEDS: apixaban 5mg tablet PO SCH ×2 (09:32→15:39)
[2018-08-16] MEDS: nystatin 15 GM powder TP SCH ×3 (09:35→22:40)
[2018-08-16] MEDS: CefTRIAXone 2gm/D5W 50ml 50 ML IV SCH (09:42)
[2018-08-16 12:41] VITALS: BP 108/52
[2018-08-16] MEDS: metroNIDAZOLE 500mg tablet PO SCH ×2 (14:32→22:35)
[2018-08-16] MEDS ORDERED: morphine 2 MG/ML inj. syringe IV PRN (15:20)
--- NOTE | 2018-08-16 15:36 | NUR ---
Talked to Dr Wahl regarding IR/Angio groshong placement tomorrow, he says it is okay to hold Eliquis and Plavix until after the procedure tomorrow.
[2018-08-16] MEDS: magnesium hydroxide 30ml (MOM) UD suspension PO PRN (15:50)
[2018-08-16] MEDS: HYDROmorphone 2mg tablet PO PRN ×2 (15:51→22:36)
[2018-08-16] MEDS ORDERED: magnesium citrate 296ml oral solution PO ONE (18:05)
--- NOTE | 2018-08-16 18:07 | NUR ---
WOUND VAC EDUCATION PROVIDED BY WOUND CARE 1. Patient instructed to call the Wound Center or their Home Health Agency immediately if: * They notice a change in the color or amount of the fluid in the canister. * Their wound looks more red than usual or has a foul smell. * The skin around their wound looks reddened or irritated. * The dressing feels loose or appears to be loose. * They experience any increase or changes in their pain. * The alarm will not turn off. 2. Patient instructed that they should not be disconnected from suction for more than 2 hours at a time. * If they are not able to get the suction back on, they need to remove the dressing and take all of the foam out of the wound. * Then moisten sterile gauze with normal saline and place on/in the wound. * Change the dressing once a day until arrangements have been made to replace the wound vac dressing. 3. Patient instructed to turn the wound vac machine OFF and call 911 or go to the ED immediately if their canister fills rapidly with blood. 4. If any of these occur while in the hospital tell a nurse immediately. Addendum: 08/16/18 at 1852 by Monik Garduno RN Amended: Links added.
--- NOTE | 2018-08-16 18:24 | NUR ---
RECOMMEND: 1. Daily bathing with no rinse skin cleanser. 2. Cream/Lotion to be applied to skin after bathing. 3.. Assist/ encourage patient to turn Q 1-2 hrs and reposition with pillows. 4. Float heels to offload pressure. 5. Wound VAC to right groin surgical wound with routine dressing changes. Setting 75mmHg, low, cont. 6. Dietary Consult Addendum: 08/16/18 at 1852 by Monik Garduno RN Amended: Links added.
--- NOTE | 2018-08-16 18:33 | NUR ---
Patient in room VIK 344. I have received report from Dorota CEJA and had the opportunity to ask questions and assume patient care.
[2018-08-16 19:00] VITALS: BP 136/65
--- NOTE | 2018-08-16 19:24 | NUR ---
Problems reprioritized. Patient report given, questions answered & plan of care reviewed with Olivia CEJA.
[2018-08-16] MEDS: docusate sod 100mg capsule PO SCH (22:35)
--- NOTE | 2018-08-16 23:55 | NUR ---
Patient refused to have her breathing treatment earlier in shift stating "there is nothing wrong with me - I dont need it".
[2018-08-17] VITALS (7 sets, daily range): BP systolic 91–177; BP diastolic 58–87
[2018-08-17 05:49] LABS: BASOPHILS # (AUTO) 0.1 X10'3 (0-0.2); BASOPHILS % (AUTO) 0.6 % (0-1); EOSINOPHILS # (AUTO) 0.5 X10'3 (0-0.9); EOSINOPHILS % (AUTO) 4.3 % (0-6); HEMOGLOBIN 9.5 g/dl (12.0-16.0); LYMPHOCYTES # (AUTO) 2.7 X10'3 (1.1-4.8); LYMPHOCYTES % (AUTO) 22.3 % (21-51); MEAN CORPUSCULAR HEMOGLOBIN 26.5 PG (27.0-31.0); MEAN CORPUSCULAR HGB CONC 31.6 % (33.0-36.5); MEAN CORPUSCULAR VOLUME 83.7 FL (78-98); MEAN PLATELET VOLUME 7.1 FL (7.4-10.4); MONOCYTES % (AUTO) 8.4 % (2-12); NEUTROPHILS # (AUTO) 7.9 X10'3 (1.8-7.7); NEUTROPHILS % (AUTO) 64.4 % (42-75); PLATELET COUNT 646 X10'3 (140-440); RED BLOOD COUNT 3.59 X10'6 (4.20-5.60); RED CELL DISTRIBUTION WIDTH 17.2 % (11.5-14.5); WHITE BLOOD COUNT 12.3 X10'3 (4.5-11.0)
[2018-08-17 06:02] LABS: INR 1.1 INR; PARTIAL THROMBOPLASTIN TIME 31 SECONDS (22-32); PROTHROMBIN TIME 11.1 SECONDS (9.0-12.0)
[2018-08-17 06:08] LABS: ALANINE AMINOTRANSFERASE 18 U/L (12-78); ALBUMIN 2.2 G/DL (3.4-5.0); ALBUMIN/GLOBULIN RATIO 0.4 (1.1-1.5); ALKALINE PHOSPHATASE 136 IU/L (46-116); ANION GAP 9 (8-16); ASPARTATE AMINO TRANSFERASE 19 U/L (10-37); BILIRUBIN,TOTAL 0.2 MG/DL (0.1-1.0); BLOOD UREA NITROGEN 11 MG/DL (7-18); BUN/CREATININE RATIO 15.5 (6.6-38.0); CALCIUM 8.9 MG/DL (8.5-10.1); CHLORIDE 102 MMOL/L (99-107); CREATININE 0.71 MG/DL (0.40-0.90); GLUCOSE 202 MG/DL (70-104); POTASSIUM 4.3 MMOL/L (3.5-5.1); SODIUM 140 MMOL/L (135-145); TOTAL CARBON DIOXIDE 29.2 MMOL/L (24-32); TOTAL PROTEIN 7.4 G/DL (6.4-8.2); eGFR 83 ML/MIN
--- NOTE | 2018-08-17 06:39 | NUR ---
Problems reprioritized. Patient report given, questions answered & plan of care reviewed with Dorota CEJA and Laura CEJA.
[2018-08-17] MEDS: apixaban 5mg tablet PO SCH ×2 (06:40→20:10)
[2018-08-17] MEDS: clopidogrel 75mg tablet PO SCH ×2 (06:40→15:03)
[2018-08-17 06:55] LABS: PLATELET ESTIMATE INCREASED
[2018-08-17 06:56] LABS: ANISOCYTOSIS 1+; HYPOCHROMASIA 1+; TARGET CELLS 1+
[2018-08-17] MEDS: docusate sod 100mg capsule PO SCH ×2 (08:00→20:09)
[2018-08-17] MEDS: metroNIDAZOLE 500mg tablet PO SCH ×3 (08:46→20:08)
[2018-08-17] MEDS: pantoprazole 40mg Tablet.DR PO SCH (08:46)
[2018-08-17] MEDS: amLODIPine 5mg tablet PO SCH (08:46)
[2018-08-17] MEDS: lisinopril 5mg tablet PO SCH ×2 (08:46→20:07)
[2018-08-17] MEDS: lactobacillus rhamnosus 10,000 MMU CELLS/CAPSULE PO SCH ×2 (08:46→20:10)
[2018-08-17] MEDS: HYDROmorphone 2mg tablet PO PRN ×2 (08:47→18:47)
[2018-08-17] MEDS: pregabalin 25mg capsule PO SCH ×3 (08:47→20:07)
[2018-08-17] MEDS: nicotine 14mg patch - 24hr TD SCH (08:49)
[2018-08-17] MEDS: nystatin 15 GM powder TP SCH ×3 (08:50→21:00)
[2018-08-17] MEDS: CefTRIAXone 2gm/D5W 50ml 50 ML IV SCH (08:50)
[2018-08-17] MEDS: albuterol 2.5 MG/3 ML nebule NEB SCH ×2 (09:00→20:25)
--- NOTE | 2018-08-17 09:04 | NUR ---
Pt refuses breathing tx, I have non-admin her dose from last night that was never given and will talk to RT this morning. Pt says she does not need tx.
[2018-08-17] MEDS: insulin Lispro (HumaLOG) vial - multi-dose SQ SCH ×3 (09:07→20:03)
--- NOTE | 2018-08-17 09:14 | NUR ---
Wound consult re: surgical wound to right groin. RD and Mattress Inspector have already seen patient at bedside on multiple occasions and provided verbal protein education, pt denied written education. Previous PO intake 75-100% meeting nutrient needs to aid in wound healing however noted that documented PO intake previously declined. Will continue to follow and monitor need for ONS. Addendum: 08/17/18 at 0914 by [address] Marie Tal[address]antes RD Amended: Links added.
--- NOTE | 2018-08-17 10:00 | NUR ---
late note: approx 0900, call from IR to BRENNA Raya to discuss POC for patient groshong placement, as patient recently stopped thinners. RN to call surgeon for consult regarding medications.
--- NOTE | 2018-08-17 12:36 | NUR ---
Per angio/IR, procedure will be done tomorrow, npo after midnight tonight.
--- NOTE | 2018-08-17 14:15 | NUR ---
Talked to Dr Wahl regarding holding plavix and elequis for one more day waiting for groshong placement. He says we cannot hold them for one more day and that they will have to wait to place the groshong until or thursday because she cannot go without blood thinners for that long. Angio Nighat CEJA notified, she has called back and says Dr Baker is okay with or Thursday. I will check with Dr Wahl in rounds to see when an appropriate time to stop the blood thinners would be for potential placement by angio on or thursday.
--- NOTE | 2018-08-17 15:12 | NUR ---
Per Dr Wahl...When IR/Angio has a time/Date for groshaung placement call Dr Wahl for further instructions about when to stop blood thinners.
--- NOTE | 2018-08-17 18:30 | NUR ---
Problems reprioritized. Patient report given, questions answered & plan of care reviewed with Laura CEJA.
--- NOTE | 2018-08-17 18:51 | NUR ---
Patient in room VIK 344. I have received report from Dorota RN and Orly RN and had the opportunity to ask questions and assume patient care. Pt was sitting up in bed resting. She had not eaten her dinner and was requesting cheese and milk instead. Wound vad was running @75 cont sx with minimal output. Will continue to monitor.
[2018-08-18] VITALS: BP 128/64
[2018-08-18] MEDS: HYDROmorphone 2mg tablet PO PRN ×4 (01:00→20:30)
--- NOTE | 2018-08-18 06:44 | NUR ---
Problems reprioritized. Patient report given, questions answered & plan of care reviewed with Lindsay CEJA. Pt was originally asleep when we entered the room. I woke the pt to introduce Lindsay and remind the pt of the days plans to remove rhina. Pt was pleasant and attentive. No signs of distress.
--- NOTE | 2018-08-18 06:53 | NUR ---
Patient in room VIK 344. I have received report from Laura CEJA and had the opportunity to ask questions and assume patient care.
[2018-08-18 07:00] VITALS: BP 146/77
--- NOTE | 2018-08-18 07:20 | NUR ---
Just medicated patient withm PO Dilaudid preparing her for staple removal today. Patient requested to do it after 1 hr
[2018-08-18] MEDS: CefTRIAXone 2gm/D5W 50ml 50 ML IV SCH (08:40)
[2018-08-18] MEDS: pregabalin 25mg capsule PO SCH ×3 (08:41→20:23)
[2018-08-18] MEDS: pantoprazole 40mg Tablet.DR PO SCH (08:41)
[2018-08-18] MEDS: clopidogrel 75mg tablet PO SCH (08:41)
[2018-08-18] MEDS: lactobacillus rhamnosus 10,000 MMU CELLS/CAPSULE PO SCH ×2 (08:41→20:23)
[2018-08-18] MEDS: lisinopril 5mg tablet PO SCH ×3 (08:41→20:30)
[2018-08-18] MEDS: docusate sod 100mg capsule PO SCH ×2 (08:41→20:23)
[2018-08-18] MEDS: metroNIDAZOLE 500mg tablet PO SCH (08:42)
[2018-08-18] MEDS: amLODIPine 5mg tablet PO SCH (08:42)
[2018-08-18] MEDS: apixaban 5mg tablet PO SCH (08:42)
[2018-08-18] MEDS: nicotine 14mg patch - 24hr TD SCH (08:42)
[2018-08-18] MEDS: nystatin 15 GM powder TP SCH ×3 (08:45→20:23)
[2018-08-18] MEDS: insulin Lispro (HumaLOG) vial - multi-dose SQ SCH ×3 (10:03→20:17)
--- NOTE | 2018-08-18 11:02 | NUR ---
28 rhina on midabdomen incision removed. Patient was medicated with Morphine IV prior to wound staple removal. Tolerated procedure. Steri strips applied after each rhina removed. Addendum: 08/18/18 at 1104 by Lindsay Frank RN Patient requested to have her right leg rhina removed later
[2018-08-18 12:00] VITALS: BP 107/61
--- NOTE | 2018-08-18 13:23 | NUR ---
Reassessment: Pt s/p debridement with sartorius muscle flap and continues with IV abx for tx per MD progress notes. Documented PO intake previously 75-100% however recent decline with documented intake averaging 0-25% with some 50% likely not meeting nutrient needs. Pt seen at bedside, reiterated the importance of protein for wound healing. Pt agreeable to 2 HB eggs and Faroese yogurt with lunch, d/w dietary. Pt with no other food requests at this time. RD contact information provided. [facility] 08/17. Will continue to follow. Rec: 1. Continue with CHO control diet 2. Monitor for ONS 3. Two hard boiled eggs and Faroese yogurt with lunch 4. Monitor need for additional bowel care 5. Encourage PO intake 6. Wt per rx Addendum: 08/18/18 at [address] Amended: Links added.
[2018-08-18] MEDS ORDERED: morphine 2 MG/ML inj. syringe IV ONE (13:30)
[2018-08-18] MEDS: ampicillin/sulbac 3gm/NS 100ml 100 ML IV SCH ×2 (13:31→20:19)
--- NOTE | 2018-08-18 13:34 | NUR ---
Notified Dr. Wahl during his rounds that Angio/IR scheduled patient's Groshong catheter placement tomorrow, he ordered to hold plavix and eliquis
--- NOTE | 2018-08-18 15:25 | NUR ---
Marilee on patient's wounds right leg were removed c/o Raymundo CEJA (Director). Wound vac dressing changed c/o Wilberto CEJA
--- NOTE | 2018-08-18 18:22 | NUR ---
Problems reprioritized. Patient report given, questions answered & plan of care reviewed with Olivia CEJA.
--- NOTE | 2018-08-18 18:44 | NUR ---
Patient in room VIK 344. I have received report from Lindsay CEJA and had the opportunity to ask questions and assume patient care.
[2018-08-18 19:30] VITALS: BP 110/61
[2018-08-18] MEDS: albuterol 2.5 MG/3 ML nebule NEB SCH (21:00)
[2018-08-19 00:08] VITALS: BP 117/62
[2018-08-19] MEDS: ampicillin/sulbac 3gm/NS 100ml 100 ML IV SCH ×4 (03:01→19:33)
[2018-08-19] MEDS: HYDROmorphone 2mg tablet PO PRN ×4 (03:10→23:16)
--- NOTE | 2018-08-19 03:26 | NUR ---
Patient is refusing still. Has been offered 3x for a bed bath ,each time, "no, i just want to sleep". Addendum: 08/19/18 at 0334 by Olivia Caba RN Amended: Links added.
--- NOTE | 2018-08-19 03:52 | NUR ---
Patient tried to refuse labs this am, telling labor service representative she would get them done later. Explained to pt. that we need them now in order to review prior to groshong procedure. Pt. unhappy, but did allow for.
[2018-08-19 05:20] LABS: BASOPHILS % (AUTO) 0.3 % (0-1); EOSINOPHILS # (AUTO) 0.7 X10'3 (0-0.9); EOSINOPHILS % (AUTO) 6.6 % (0-6); HEMATOCRIT 31.5 % (35.0-45.0); HEMOGLOBIN 9.7 g/dl (12.0-16.0); LYMPHOCYTES # (AUTO) 2.8 X10'3 (1.1-4.8); LYMPHOCYTES % (AUTO) 24.8 % (21-51); MEAN CORPUSCULAR HEMOGLOBIN 25.8 PG (27.0-31.0); MEAN CORPUSCULAR HGB CONC 30.8 % (33.0-36.5); MEAN CORPUSCULAR VOLUME 83.8 FL (78-98); MEAN PLATELET VOLUME 7.1 FL (7.4-10.4); MONOCYTES # (AUTO) 1.1 X10'3 (0-0.9); MONOCYTES % (AUTO) 9.8 % (2-12); NEUTROPHILS # (AUTO) 6.6 X10'3 (1.8-7.7); NEUTROPHILS % (AUTO) 58.5 % (42-75); PLATELET COUNT 736 X10'3 (140-440); RED BLOOD COUNT 3.76 X10'6 (4.20-5.60); RED CELL DISTRIBUTION WIDTH 18.2 % (11.5-14.5); WHITE BLOOD COUNT 11.4 X10'3 (4.5-11.0)
[2018-08-19 05:26] LABS: ALBUMIN 2.3 G/DL (3.4-5.0); ANION GAP 9 (8-16); BLOOD UREA NITROGEN 17 MG/DL (7-18); BUN/CREATININE RATIO 18.5 (6.6-38.0); CHLORIDE 104 MMOL/L (99-107); CREATININE 0.92 MG/DL (0.40-0.90); GLUCOSE 187 MG/DL (70-104); POTASSIUM 4.3 MMOL/L (3.5-5.1); SODIUM 141 MMOL/L (135-145); TOTAL CARBON DIOXIDE 27.6 MMOL/L (24-32); eGFR 62 ML/MIN
[2018-08-19 05:30] LABS: INR 1.1 INR; PARTIAL THROMBOPLASTIN TIME 30 SECONDS (22-32); PROTHROMBIN TIME 10.8 SECONDS (9.0-12.0)
--- NOTE | 2018-08-19 06:00 | NUR ---
Patient had very limited drainage to wound vac. Maybe 1cc of sero sanguinous. Pt. received bed bath and surgical wipe down in preparation for groshong placement. Patient was unhappy that bed bath was given and stated that she didn't sleep all night, which is totally incorrect. Patient slept most of the night apart from the needed interactions.
--- NOTE | 2018-08-19 06:20 | NUR ---
Patient in room VIK 344. I have received report from BRENNA Baker and had the opportunity to ask questions and assume patient care.
--- NOTE | 2018-08-19 06:55 | NUR ---
Problems reprioritized. Patient report given, questions answered & plan of care reviewed with Yazmin CEJA.
[2018-08-19 07:28] VITALS: BP 143/70
[2018-08-19] MEDS: pregabalin 25mg capsule PO SCH ×3 (08:00→22:13)
[2018-08-19] MEDS: nystatin 15 GM powder TP SCH ×4 (08:00→22:14)
[2018-08-19] MEDS: albuterol 2.5 MG/3 ML nebule NEB SCH ×2 (08:34→21:00)
[2018-08-19] MEDS: pantoprazole 40mg Tablet.DR PO SCH (08:38)
[2018-08-19] MEDS: lactobacillus rhamnosus 10,000 MMU CELLS/CAPSULE PO SCH ×2 (08:39→19:29)
[2018-08-19] MEDS: docusate sod 100mg capsule PO SCH ×2 (08:39→19:28)
[2018-08-19] MEDS: amLODIPine 5mg tablet PO SCH (08:42)
[2018-08-19] MEDS: nicotine 14mg patch - 24hr TD SCH (08:43)
[2018-08-19] MEDS: insulin Lispro (HumaLOG) vial - multi-dose SQ SCH ×3 (08:57→19:25)
--- NOTE | 2018-08-19 10:09 | NUR ---
Couldn't give patient her lyica because pharmacy did not load the omnicell in time. I sent them a message and called them about it. Could not leave my patients to go and get it. She will get her 1300 dose if she's not in a procedure.
[2018-08-19] MEDS ORDERED: LIDOcaine 1%/PF 5ML 10 MG/ML VIAL ONE (10:42)
[2018-08-19] MEDS ORDERED: fentaNYL/PF 50MCG/1 ML 2ML syringe ONE (10:43)
[2018-08-19 11:45] VITALS: BP 131/70
--- NOTE | 2018-08-19 12:18 | NUR ---
Couldn't give the patient her lisinopril because night nurse, Olivia RN might have given my dose around 2029. One was given at 2021 and the other around 2029. I don't know if she clicked it by accident, but my 0800 dose was given and I can't undo it. Dr. Boo is aware.
--- NOTE | 2018-08-19 18:10 | NUR ---
Patient in room VIK 344. I have received report from Yazmin CEJA and had the opportunity to ask questions and assume patient care. Patient starting dinner, will continue to monitor.
--- NOTE | 2018-08-19 18:10 | NUR ---
Problems reprioritized. Patient report given, questions answered & plan of care reviewed with BRENNA Joe.
[2018-08-19 19:00] VITALS: BP 125/74
[2018-08-19] MEDS: lisinopril 5mg tablet PO SCH (19:29)
[2018-08-19] MEDS ORDERED: insulin glargine (Lantus) pen - multi-dose SQ SCH (21:00)
[2018-08-20] VITALS: BP 137/68
[2018-08-20] MEDS: ampicillin/sulbac 3gm/NS 100ml 100 ML IV SCH ×3 (01:51→13:22)
[2018-08-20] MEDS: HYDROmorphone 2mg tablet PO PRN ×2 (05:18→12:13)
--- NOTE | 2018-08-20 06:53 | NUR ---
Patient in room VIK 344. I have received report from Tatyana CEJA and had the opportunity to ask questions and assume patient care.
--- NOTE | 2018-08-20 07:04 | NUR ---
Problems reprioritized. Patient report given, questions answered & plan of care reviewed with Jaqui CEJA. Patient resting eyes closed respirations even.
[2018-08-20 07:16] VITALS: BP 125/63
[2018-08-20] MEDS: nystatin 15 GM powder TP SCH ×2 (08:00→12:04)
[2018-08-20] MEDS: pantoprazole 40mg Tablet.DR PO SCH (08:33)
[2018-08-20] MEDS: amLODIPine 5mg tablet PO SCH (08:34)
[2018-08-20] MEDS: nicotine 14mg patch - 24hr TD SCH (08:34)
[2018-08-20] MEDS: docusate sod 100mg capsule PO SCH (08:34)
[2018-08-20] MEDS: apixaban 5mg tablet PO SCH (08:34)
[2018-08-20] MEDS: lisinopril 5mg tablet PO SCH (08:34)
[2018-08-20] MEDS: lactobacillus rhamnosus 10,000 MMU CELLS/CAPSULE PO SCH (08:34)
[2018-08-20] MEDS: clopidogrel 75mg tablet PO SCH (08:34)
[2018-08-20] MEDS: pregabalin 25mg capsule PO SCH ×2 (08:34→12:13)
[2018-08-20] MEDS: albuterol 2.5 MG/3 ML nebule NEB SCH (09:00)
[2018-08-20] MEDS: insulin Lispro (HumaLOG) vial - multi-dose SQ SCH ×2 (09:11→13:17)
[2018-08-20 11:22] VITALS: BP 128/70
--- NOTE | 2018-08-20 12:46 | NUR ---
Patient report given to Ham CEJA at [facility]. Pickup time 1400.
--- NOTE | 2018-08-20 14:02 | NUR ---
Patient discharged with all belongings to [facility] via [facility] personnel.
== END 2018-08-20 14:04 | DRG 793 ==
LOC: ER 20:38 → ED HOLD 08-12 01:42 → SUR 3N 08-12 02:10 → CICU 2S 08-12 18:36 → SUR 3N 08-13 22:30
PROVIDERS: ADMIT Internal Medicine; ATTEND Family Medicine
PROC: B42H1ZZ Computerized Tomography (CT Scan) of Bilateral Lower Extremity Arteries using Low Osmolar Contrast (ICD-10-PCS; 2018-08-11)
PROC: 0KXQ0ZZ Transfer Right Upper Leg Muscle, Open Approach (ICD-10-PCS; 2018-08-12)
PROC: 0H9HXZZ Drainage of Right Upper Leg Skin, External Approach (ICD-10-PCS; 2018-08-12)
PROC: 0JBL0ZZ Excision of Right Upper Leg Subcutaneous Tissue and Fascia, Open Approach (ICD-10-PCS; principal; 2018-08-12 19:22)
PROC: 0JH63XZ Insertion of Tunneled Vascular Access Device into Chest Subcutaneous Tissue and Fascia, Percutaneous Approach (ICD-10-PCS; 2018-08-19)
PROC: 02HV33Z Insertion of Infusion Device into Superior Vena Cava, Percutaneous Approach (ICD-10-PCS; 2018-08-19)
PROC: B5181ZA Fluoroscopy of Superior Vena Cava using Low Osmolar Contrast, Guidance (ICD-10-PCS; 2018-08-19)
PROC: B548ZZA Ultrasonography of Superior Vena Cava, Guidance (ICD-10-PCS; 2018-08-19)
DX: T81.31XA Disruption of external operation (surgical) wound, not elsewhere classified, initial encounter (principal); E11.42 Type 2 diabetes mellitus with diabetic polyneuropathy; E11.51 Type 2 diabetes mellitus with diabetic peripheral angiopathy without gangrene; L02.415 Cutaneous abscess of right lower limb; E44.1 Mild protein-calorie malnutrition; T81.41XA Infection following a procedure, superficial incisional surgical site, initial encounter; E66.9 Obesity, unspecified; J44.9 Chronic obstructive pulmonary disease, unspecified; D64.9 Anemia, unspecified; E78.5 Hyperlipidemia, unspecified; F17.210 Nicotine dependence, cigarettes, uncomplicated; I10 Essential (primary) hypertension; Y83.2 Surgical operation with anastomosis, bypass or graft as the cause of abnormal reaction of the patient, or of later complication, without mention of misadventure at the time of the procedure; F41.9 Anxiety disorder, unspecified; B95.1 Streptococcus, group B, as the cause of diseases classified elsewhere; Z91.19 Patient's noncompliance with other medical treatment and regimen; Z88.2 Allergy status to sulfonamides; Z88.6 Allergy status to analgesic agent; Z79.4 Long term (current) use of insulin; Z79.01 Long term (current) use of anticoagulants; Z86.718 Personal history of other venous thrombosis and embolism; Y92.89 Other specified places as the place of occurrence of the external cause; Z68.33 Body mass index [BMI] 33.0-33.9, adult
CPT/HCPCS: 36415; 36558; 71045; 72191; 73706; 76937; 77001; 80048; 80053; 80202; 82948; 83605; 83735; 84145; 85025; 85610; 85730; 86885; 86900; 86901; 86920; 87040; 87070; 87075; 87077; 87102; 87186; 93005; 94760; 96374; 96375; 97110; 97161; 97530; 99285; A6454; A7000; C1751; C1758; C1894; G0378; J0295; J0690; J0696; J1100; J1170; J1644; J1815; J2001; J2060; J2250; J2270; J2405; J2543; J2704; J2710; J3010; J3370; J3490; J7030; J7120; P9045; Q9967

== ENCOUNTER 2019-01-06 10:09 | Outpatient (CLI) | payer MEDICAID ==
[~2019-01-06 10:09] MED LIST changes: +ESCI20TA38 PO; +FLUT50DI3 INH; +LEVA1.2544 INH; -LEVA15HF4 INH; +LINE600T32 PO; +LORA10TA7 PO; +NICO-687 TD
[2019-01-06] MEDS ORDERED: LIDOcaine 4% (40 mg/ml) topical solution 50ml ONE (12:26)
--- NOTE | 2019-01-06 14:00 | NUR ---
Patient arrived via wheelchair from [facility] and was admitted to outpatient wound care for physician visit with Channing Montes MD. Dressing removed, wound cleansed and lidocaine applied per order. New patient assessment completed with review of patient's medical history, current medications and allergies. Per the records, patient is unable to obtain a home health RN or placement at SNF due to her insurance. Patient believed "her doctor (Vish) would order me a dilaudid shot" for dressing change. Patient is extremely painful with dressing removal which takes place over a period of 45 minutes with copious amounts of normal saline and liquid and gel lidocaine used with multiple "breaks" taken per patient request. Patient states she has oral hydromorphone but "did not take any" prior to her wound care appointment. 1300 - Dr. Montes at bedside accompanied by RN. Wound assessed by MD and orders written. Plan of care discussed with patient. Dressings placed per MD orders. It is explained multiple times to patient how the clinic operates and that IV pain medication is not given here. Detailed instructions on how to troubleshoot wound vac and apply rescue dressings should the vac dressing fail explained with who is mildly distracted during instruction; is also strongly advised obtain Medicare A & B for his who is now disabled from her surgery. Patient instructed on the signs and symptoms of infection and to call the Wound Center if any occur or to go to the ED if we are closed: Increased pain in wound Increase in drainage from the wound Redness in the skin surrounding the wound Bleeding from the wound Temperature of 101 or greater Patient instructed that the weight of their body puts a large amount of pressure on their wounds. This pressure keeps the new tissue from growing and inhibits new blood vessels from forming. Explained that, if they continue to bear weight on a body part that has a wound, the time it takes to heal the wound increases, the wound may get worse or the wound may not heal at all. Patient and verbalized understanding of all discharge instructions and plan of care and patient is taken via wheelchair by out of [facility] in stable condition with no sign or symptom of distress at time of discharge.
== END 2019-01-06 14:30 | disposition home or self-care (01) ==
LOC: WOUND CARE 10:09 → EDSTATUS 10:30 → WOUND CARE 14:30
PROVIDERS: ATTEND Surgery
DX: T87.89 Other complications of amputation stump (principal); E11.622 Type 2 diabetes mellitus with other skin ulcer; L98.492 Non-pressure chronic ulcer of skin of other sites with fat layer exposed; I77.1 Stricture of artery; J44.9 Chronic obstructive pulmonary disease, unspecified; I10 Essential (primary) hypertension; E11.51 Type 2 diabetes mellitus with diabetic peripheral angiopathy without gangrene; E43 Unspecified severe protein-calorie malnutrition; F17.210 Nicotine dependence, cigarettes, uncomplicated; F41.9 Anxiety disorder, unspecified; Z79.4 Long term (current) use of insulin; Z79.899 Other long term (current) drug therapy; Y83.5 Amputation of limb(s) as the cause of abnormal reaction of the patient, or of later complication, without mention of misadventure at the time of the procedure
CPT/HCPCS: 97605; A6223; A6266; A4456; A6021; A6206; A6213

== ENCOUNTER 2019-02-10 10:50 | Day surgery (SDC) | payer MEDICAID ==
[~2019-02-10 10:50] MED LIST changes: -CLOP75TA15 PO; +LINE600T14 PO; -LINE600T32 PO
[2019-02-10] MEDS ORDERED: LIDOcaine/PRILOcaine 5gm cream TP ONE (12:25)
--- NOTE | 2019-02-10 16:55 | NUR ---
1030 Patient entered safely into [facility] [employer] via her w/c and with her . Patient admitted to outpatient wound care clinic for follow-up visit with physician. Patient placed in isolation per isolation protocol. Dressing removed, wound cleansed. Patient assessed for changes in conditions, medications and medical history. Patient showed no s/s of distress at time of assessment. Pt has been noncompliant with her wound care visits. She has missed several appointments. Her last visit was on 01/06/19. Multiple calls were back to the patient regarding her NPWT device. Pt stated several times that she was getting them changed at [facility]. Pt still had ruiz catheter in. Pt also stated that she has also had that changed at [facility] emergency room. 1240 at bedside accompanied by RN. Wounds assessed, as detailed in the physician progress/procedure note. Plan of care discussed with patient. Dressings placed per MD orders. Dr Montes instructed patient and that the catheter needed to come out and to follow up with ther PCP or the Dr that put it in to have it removed or at least changed. Patient and verbalized understanding of all instructions. Patient was overheard by A Yajaira BATTERY WRECKER OPERATOR making phone calls for an appointment with some one before she left. Pt was discharged from the wound center and is to follow up with Dr Wahl. Her wounds are 95% closed at this time. Patient instructed on the signs and symptoms of infection and to call the Wound Center if any occur or to go to the ED if we are closed: Increased pain in wound Increase in drainage from the wound Redness in the skin surrounding the wound Bleeding from the wound Temperature of 101 or greater Patient instructed that the weight of their body puts a large amount of pressure on their wounds. This pressure keeps the new tissue from growing and inhibits new blood vessels from forming. Explained that, if they continue to bear weight on a body part that has a wound, the time it takes to heal the wound increases, the wound may get worse or the wound may not heal at all. Patient verbalized understanding of all discharge instructions and plan of care. Patient and left independently out to [employer] and is in stable condition with no sign or symptom of distress at time of discharge.
== END 2019-02-10 13:10 | disposition home or self-care (01) ==
LOC: WOUND CARE 10:50
PROVIDERS: ATTEND Surgery
DX: T87.89 Other complications of amputation stump (principal); E11.622 Type 2 diabetes mellitus with other skin ulcer; L98.492 Non-pressure chronic ulcer of skin of other sites with fat layer exposed; I77.1 Stricture of artery; J44.9 Chronic obstructive pulmonary disease, unspecified; I10 Essential (primary) hypertension; E11.51 Type 2 diabetes mellitus with diabetic peripheral angiopathy without gangrene; E43 Unspecified severe protein-calorie malnutrition; F17.210 Nicotine dependence, cigarettes, uncomplicated; F41.9 Anxiety disorder, unspecified; Z79.4 Long term (current) use of insulin; Z79.899 Other long term (current) drug therapy; Y83.5 Amputation of limb(s) as the cause of abnormal reaction of the patient, or of later complication, without mention of misadventure at the time of the procedure
CPT/HCPCS: 97597; A6209; A6222; A6266; A4663; A6021

== ENCOUNTER 2020-02-08 10:54 | Outpatient (CLI) | payer MEDICAID ==
[~2020-02-08] VITALS: Ht 165.1 cm; Wt 81.6 kg
[~2020-02-08 10:54] MED LIST changes: -ESCI20TA38 PO; +ESCI20TA45 PO
[2020-02-08] MEDS ORDERED: HYDR2TAB7 PO (11:23)
[2020-02-08] MEDS ORDERED: CLOP75TA35 PO (12:16)
[2020-02-08 12:18] LABS: BASOPHILS # (AUTO) 0.1 X10'3 (0-0.2); BASOPHILS % (AUTO) 0.6 % (0-1); EOSINOPHILS # (AUTO) 0.2 X10'3 (0-0.9); EOSINOPHILS % (AUTO) 1.4 % (0-6); LYMPHOCYTES # (AUTO) 2.2 X10'3 (1.1-4.8); LYMPHOCYTES % (AUTO) 17.5 % (21-51); MEAN CORPUSCULAR HEMOGLOBIN 25.3 PG (27.0-31.0); MEAN CORPUSCULAR HGB CONC 32.3 g/dL (33.0-36.5); MEAN CORPUSCULAR VOLUME 78.3 FL (78-98); MONOCYTES # (AUTO) 1.2 X10'3 (0-0.9); MONOCYTES % (AUTO) 9.2 % (2-12); NEUTROPHILS # (AUTO) 8.9 X10'3 (1.8-7.7); NEUTROPHILS % (AUTO) 71.3 % (42-75); PRE OP HEMATOCRIT 37.5 % (35.0-45.0); PRE OP HEMOGLOBIN 12.1 g/dL (12.0-16.0); PRE OP PLATELET COUNT 564 X10'3 (140-440); RED BLOOD COUNT 4.79 X10'6 (4.20-5.60); RED CELL DISTRIBUTION WIDTH 16.5 % (11.5-14.5)
[2020-02-08 12:33] LABS: ALBUMIN 2.7 G/DL (3.4-5.0); ALBUMIN/GLOBULIN RATIO 0.5 (1.1-1.5); ALKALINE PHOSPHATASE 127 IU/L (46-116); BLOOD UREA NITROGEN 22 MG/DL (7-18); BUN/CREATININE RATIO 17.5 (6.6-38.0); CALCIUM 8.5 MG/DL (8.5-10.1); CHLORIDE 94 MMOL/L (99-107); CREATININE 1.26 MG/DL (0.40-0.90); PRE OP ALT 13 U/L (30-65); PRE OP ANION GAP 7 (8-16); PRE OP AST 10 U/L (10-37); PRE OP BILIRUB, TOTAL 0.2 MG/DL (0.0-1.0); PRE OP POTASSIUM 4.8 MMOL/L (3.4-5.1); TOTAL CARBON DIOXIDE 26.4 MMOL/L (24-32); TOTAL PROTEIN 8.6 G/DL (6.4-8.2); eGFR 43 ML/MIN
[2020-02-08 12:35] LABS: PRE OP GLUCOSE 295 MG/DL (70-104); PRE OP SODIUM 127 MMOL/L (135-145)
[2020-02-08 14:59] LABS: CLARITY,URINE SLIGHTLY CLOUDY (Clear); COLOR,URINE YELLOW (Yellow); GLUCOSE, URINE 100 mg/dl (Neg); KETONES,URINE NEGATIVE (Neg); LEUKOCYTE ESTERASE ,URINE NEGATIVE (Neg); NITRITES, URINE NEGATIVE (Neg); OCCULT BLOOD,URINE TRACE-LYSED (Neg); PROTEIN,URINE 100 mg/dl (Neg); UROBILINOGEN,URINE 0.2 E.U/dL (0.2-1.0)
[2020-02-08 15:13] LABS: UA COLLECTION TYPE CLN CATCH MIDSTREAM
[2020-02-08 15:15] LABS: BACTERIA,URINE 2+ /HPF (Neg); HYALINE CASTS 0-3 /LPF (NEGATIVE); SQUAMOUS EPITHELIAL CELL,UR MANY /LPF (FEW)
[2020-02-08 15:16] LABS: RBC,URINE 0-2 /HPF (0-2); WBC,URINE 0-4 /HPF (0-4)
[2020-02-13] MEDS ORDERED: ringers solution, lacted 1,000 ML IV SCH (05:00)
[2020-02-13] MEDS ORDERED: ceFAZolin 2gm in dextrose, iso 50 ML IV ONE (05:30)
[2020-02-13] MEDS ORDERED: famotidine 20mg tablet PO ONE (05:30)
== END 2020-02-08 23:59 | disposition home or self-care (01) ==
LOC: PRE-OP 10:54 → EDSTATUS 02-13 12:30
PROVIDERS: ATTEND Surgery
DX: Z01.818 Encounter for other preprocedural examination (principal); T85.79XA Infection and inflammatory reaction due to other internal prosthetic devices, implants and grafts, initial encounter; J98.11 Atelectasis; R00.0 Tachycardia, unspecified; I44.4 Left anterior fascicular block; I10 Essential (primary) hypertension; Z11.59 Encounter for screening for other viral diseases; J44.9 Chronic obstructive pulmonary disease, unspecified; F17.210 Nicotine dependence, cigarettes, uncomplicated; E11.9 Type 2 diabetes mellitus without complications; Z88.0 Allergy status to penicillin; Z88.2 Allergy status to sulfonamides; Z79.899 Other long term (current) drug therapy; E66.9 Obesity, unspecified
CPT/HCPCS: 36415; 71046; 80053; 81001; 85025; 85610; 85730; 93005; U0003; J7120